=== PATIENT | female | born 1960 | race Caucasian/White ===

== ENCOUNTER → 2019-12-07 10:27 | Outpatient (BNVA) | payer OTHER, SELFPAY | PROVIDERS: PCP Internal Medicine; Visit Provider Physician Assistant | DX: E66.01 Morbid (severe) obesity due to excess calories (principal); Z68.41 Body mass index [BMI] 40.0-44.9, adult | CPT/HCPCS: 99204 ==

== ENCOUNTER 2020-06-10 12:19 | Outpatient (REF) | payer OTHER, SELFPAY ==
[2020-06-10 14:39] LABS: Alanine Aminotransferase 15 U/L (0-31); Albumin Level 4.1 g/dL (3.5-5.0); Alkaline Phosphatase 100 U/L (39-117); Anion Gap 15 (12-20); Aspartate Amino Transferase 16 U/L (5-31); Bilirubin Total 0.8 mg/dL (0.0-1.0); Blood Urea Nitrogen 21 mg/dL (9-16); Calcium 9.2 mg/dL (8.4-10.2); Carbon Dioxide 24 mmol/L (22-29); Chloride 107 mmol/L (96-108); Cholesterol 176 mg/dL; Estimated Glomerular Filt Rate > 60; Glucose Fasting 98 mg/dL (60-99); HDL Cholesterol 54 mg/dL; LDL Cholesterol Calculated 102 mg/dl; Potassium 4.7 mmol/L (3.3-5.1); Sodium 141 mmol/L (135-145); Total Protein 7.3 g/dL (6.5-8.0); Triglycerides 100 mg/dL
[2020-06-18 11:12] LABS: Vitamin D 25-OH, D2 <4 ng/mL; Vitamin D 25-OH, D3 32 ng/mL; Vitamin D 25-OH, Total 32 ng/mL (30-100)
== END 2020-06-10 12:20 | disposition home or self-care (01) ==
LOC: HO.HMGCLDS 12:19
PROVIDERS: PCP Internal Medicine; Visit Provider Internal Medicine
DX: Z00.01 Encounter for general adult medical examination with abnormal findings (principal); I10 Essential (primary) hypertension; K21.9 Gastro-esophageal reflux disease without esophagitis; E55.9 Vitamin D deficiency, unspecified; R03.0 Elevated blood-pressure reading, without diagnosis of hypertension
CPT/HCPCS: 36415; 80053; 80061; 82306

== ENCOUNTER 2021-01-27 11:23 | Outpatient (REF) | payer OTHER, SELFPAY ==
--- NOTE | ~2021-01-27 | XR_ITS ---
EXAMINATION: XR HIP, RIGHT CLINICAL INFORMATION: Pain in right hip. COMPARISON: None TECHNIQUE: Two views of the right hip. FINDINGS: There is loss of right hip joint space with periarticular spurring. No bony erosive changes seen. There is no visible acute fracture or dislocation. The soft tissues are normal. XR/XR hip RT min 2V IMPRESSION: Degenerative arthritic changes right hip joint. No visible acute fracture or dislocation seen.
[2021-01-27 14:06] LABS: Alanine Aminotransferase 17 U/L (0-31); Alkaline Phosphatase 89 U/L (39-117); Anion Gap 12 (12-20); Aspartate Amino Transferase 18 U/L (5-31); Bilirubin Total 0.4 mg/dL (0.0-1.0); Blood Urea Nitrogen 25 mg/dL (9-16); Calcium 9.5 mg/dL (8.4-10.2); Carbon Dioxide 26 mmol/L (22-29); Chloride 109 mmol/L (96-108); Cholesterol 178 mg/dL; Estimated Glomerular Filt Rate > 60; Glucose Fasting 99 mg/dL (60-99); HDL Cholesterol 49 mg/dL; LDL Cholesterol Calculated 100 mg/dl; Potassium 4.9 mmol/L (3.3-5.1); Sodium 142 mmol/L (135-145); Total Protein 7.2 g/dL (6.5-8.0); Triglycerides 145 mg/dL
[2021-01-27 14:28] LABS: TSH reflex Free T4 5.82 uIU/mL (0.32-4.0)
[2021-01-27 15:06] LABS: Free T4 (Free Thyroxine) 0.84 ng/dL (0.71-1.85)
[2021-01-31 13:20] LABS: Vitamin D 25-OH, D2 <4 ng/mL; Vitamin D 25-OH, D3 32 ng/mL; Vitamin D 25-OH, Total 32 ng/mL (30-100)
== END 2021-01-27 11:24 | disposition home or self-care (01) ==
LOC: HO.HMGCLDS 11:23
PROVIDERS: PCP Internal Medicine; Visit Provider Internal Medicine
DX: E55.9 Vitamin D deficiency, unspecified (principal); E66.01 Morbid (severe) obesity due to excess calories; I10 Essential (primary) hypertension; E78.9 Disorder of lipoprotein metabolism, unspecified; M25.551 Pain in right hip
CPT/HCPCS: 36415; 73502; 80053; 80061; 82306; 84439; 84443

== ENCOUNTER 2021-02-03 12:37 | Outpatient (REF) | payer OTHER, SELFPAY ==
[2021-02-03 15:06] LABS: TSH reflex Free T4 3.59 uIU/mL (0.32-4.0)
== END 2021-02-03 12:38 | disposition home or self-care (01) ==
LOC: HO.HMGCLDS 12:37
PROVIDERS: PCP Internal Medicine; Visit Provider Internal Medicine
DX: R79.89 Other specified abnormal findings of blood chemistry (principal)
CPT/HCPCS: 36415; 84443

== ENCOUNTER → 2021-03-28 14:37 | Outpatient (BNVA) | payer OTHER, SELFPAY | PROVIDERS: PCP Internal Medicine; Visit Provider Physician Assistant | DX: M16.11 Unilateral primary osteoarthritis, right hip (principal) | CPT/HCPCS: 99202 ==

== ENCOUNTER → 2021-05-08 13:10 | Outpatient (BNVA) | payer OTHER, SELFPAY | PROVIDERS: PCP Internal Medicine; Visit Provider Physician Assistant | DX: M16.11 Unilateral primary osteoarthritis, right hip (principal) | CPT/HCPCS: 99212 ==

== ENCOUNTER 2021-05-23 09:11 | Outpatient (REF) | payer OTHER, SELFPAY ==
[2021-05-23 11:43] LABS: MANUAL DIFF FLAG NO
[2021-05-23 12:00] LABS: Basophils Absolute Auto 0.1 X10*3/uL (0.0-0.2); Eosinophils Absolute Auto 0.3 X10*3/uL (0.0-0.4); Eosinophils Percent Auto 4.2 % (0-4); Hematocrit 41.6 % (37.0-47.0); Hemoglobin 13.2 g/dl (12.0-16.0); Imm Gran Abs Auto 0.04 X10*3/uL (0.00-0.03); Imm Gran Pct Auto 0.6 % (0.0-0.4); Lymphocytes Percent Auto 31.7 % (20-40); Mean Corpuscular HGB Conc 31.7 g/dl (31.0-35.0); Mean Corpuscular Hemoglobin 29.7 pg (27.0-33.0); Mean Corpuscular Volume 93.7 fL (80.0-98.0); Mean Platelet Volume 11.4 fL (9.4-12.3); Monocytes Absolute Auto 0.5 X10*3/uL (0.1-1.2); Monocytes Percent Auto 7.8 % (2-11); Neutrophils Absolute Auto 3.4 x10*3/uL (2.0-8.3); Neutrophils Percent Auto 54.7 % (45-73); Platelet Count 283 X10*3/uL (160-400); Red Blood Count 4.44 X10*6/uL (4.20-5.50); Red Cell Distribution Width 12.6 % (11.0-16.0); White Blood Count 6.2 X10*3/uL (4.8-10.8)
[2021-05-23 12:07] LABS: Alanine Aminotransferase 20 U/L (0-31); Albumin Level 4.2 g/dL (3.5-5.0); Alkaline Phosphatase 89 U/L (39-117); Anion Gap 13 (12-20); Aspartate Amino Transferase 18 U/L (5-31); Bilirubin Total 0.6 mg/dL (0.0-1.0); Blood Urea Nitrogen 23 mg/dL (9-16); Calcium 9.3 mg/dL (8.4-10.2); Carbon Dioxide 24 mmol/L (22-29); Chloride 110 mmol/L (96-108); Estimated Glomerular Filt Rate > 60; Glucose Random 105 mg/dL (60-115); Potassium 3.8 mmol/L (3.3-5.1); Sodium 143 mmol/L (135-145); Total Protein 7.4 g/dL (6.5-8.0)
== END 2021-05-23 09:12 | disposition home or self-care (01) ==
LOC: HO.HMGCLDS 09:11
PROVIDERS: PCP Internal Medicine; Visit Provider Internal Medicine
DX: Z00.01 Encounter for general adult medical examination with abnormal findings (principal); E78.9 Disorder of lipoprotein metabolism, unspecified; I10 Essential (primary) hypertension
CPT/HCPCS: 36415; 80053; 85025

== ENCOUNTER → 2021-06-06 11:22 | Outpatient (BNVA) | payer OTHER, SELFPAY | PROVIDERS: PCP Internal Medicine; Visit Provider Orthopaedic Surgery | DX: M17.12 Unilateral primary osteoarthritis, left knee (principal) | CPT/HCPCS: 99212 ==

== ENCOUNTER 2021-09-26 11:51 | Outpatient (REF) | payer OTHER, SELFPAY ==
[2021-09-26 13:52] LABS: MANUAL DIFF FLAG NO
[2021-09-26 14:08] LABS: Basophils Absolute Auto 0.1 X10*3/uL (0.0-0.2); Basophils Percent Auto 1.3 % (0-2); Eosinophils Absolute Auto 0.2 X10*3/uL (0.0-0.4); Eosinophils Percent Auto 3.8 % (0-4); Hematocrit 45.4 % (37.0-47.0); Hemoglobin 14.7 g/dl (12.0-16.0); Imm Gran Abs Auto 0.01 X10*3/uL (0.00-0.03); Imm Gran Pct Auto 0.2 % (0.0-0.4); Lymphocytes Absolute Auto 1.7 X10*3/uL (1.2-4.9); Mean Corpuscular HGB Conc 32.4 g/dl (31.0-35.0); Mean Corpuscular Hemoglobin 30.1 pg (27.0-33.0); Mean Corpuscular Volume 92.8 fL (80.0-98.0); Mean Platelet Volume 12.3 fL (9.4-12.3); Monocytes Absolute Auto 0.5 X10*3/uL (0.1-1.2); Monocytes Percent Auto 8.4 % (2-11); Neutrophils Absolute Auto 3.5 x10*3/uL (2.0-8.3); Neutrophils Percent Auto 58.3 % (45-73); Platelet Count 243 X10*3/uL (160-400); Red Blood Count 4.89 X10*6/uL (4.20-5.50); Red Cell Distribution Width 13.2 % (11.0-16.0)
[2021-09-26 14:22] LABS: Anion Gap 16 (12-20); Blood Urea Nitrogen 20 mg/dL (9-16); Calcium 9.4 mg/dL (8.4-10.2); Carbon Dioxide 26 mmol/L (22-29); Chloride 108 mmol/L (96-108); Estimated Glomerular Filt Rate > 60; Glucose Random 124 mg/dL (60-115); Potassium 4.9 mmol/L (3.3-5.1); Sodium 145 mmol/L (135-145)
== END 2021-09-26 11:52 | disposition home or self-care (01) ==
LOC: HO.HMGCLDS 11:51
PROVIDERS: PCP Internal Medicine; Visit Provider Orthopaedic Surgery
DX: Z01.812 Encounter for preprocedural laboratory examination (principal)
CPT/HCPCS: 36415; 80048; 85025

== ENCOUNTER 2021-10-09 09:06 | Outpatient (REF) | payer OTHER, SELFPAY ==
--- NOTE | ~2021-10-09 | XR_ITS ---
EXAMINATION: XR KNEES, STANDING AP XR KNEE, LEFT CLINICAL INFORMATION: Knee pain. COMPARISON: Standing AP knees and right knee 01/30/2019 TECHNIQUE: Standing AP view of both knees is performed. Lateral and axial patella views of the left knee are also performed. FINDINGS: Right: Prior right knee arthroplasty with hinged prosthesis. Hardware intact. No fracture, dislocation, destructive process, or osteolysis. Again, some benign scattered heterotopic ossification is present in the soft tissues adjacent to the proximal fibula. Left: Tricompartment osteoarthritis, greatest lateral compartment with subchondral sclerosis, joint narrowing, osteophytes femoral condyles and tibial plateau, and secondary genu valgus. No visible chondrocalcinosis or erosive change. No definite suprapatellar effusion. No lateralization or tilting patella. XR/XR knee LT 2V IMPRESSION: Right: -Status post knee arthroplasty. Hardware intact. No osteolysis. Left: -Tricompartment osteoarthritis, greatest lateral compartment with secondary genu valgus.
--- NOTE | ~2021-10-09 | XR_ITS ---
EXAMINATION: XR KNEES, STANDING AP XR KNEE, LEFT CLINICAL INFORMATION: Knee pain. COMPARISON: Standing AP knees and right knee 01/30/2019 TECHNIQUE: Standing AP view of both knees is performed. Lateral and axial patella views of the left knee are also performed. FINDINGS: Right: Prior right knee arthroplasty with hinged prosthesis. Hardware intact. No fracture, dislocation, destructive process, or osteolysis. Again, some benign scattered heterotopic ossification is present in the soft tissues adjacent to the proximal fibula. Left: Tricompartment osteoarthritis, greatest lateral compartment with subchondral sclerosis, joint narrowing, osteophytes femoral condyles and tibial plateau, and secondary genu valgus. No visible chondrocalcinosis or erosive change. No definite suprapatellar effusion. No lateralization or tilting patella. XR/XR knee standing BI IMPRESSION: Right: -Status post knee arthroplasty. Hardware intact. No osteolysis. Left: -Tricompartment osteoarthritis, greatest lateral compartment with secondary genu valgus.
== END 2021-10-09 09:07 | disposition home or self-care (01) ==
LOC: HO.HOSX 09:06
PROVIDERS: Visit Provider Physician Assistant
DX: M17.12 Unilateral primary osteoarthritis, left knee (principal)
CPT/HCPCS: 73560; 73565; 99212

== ENCOUNTER 2021-10-15 10:40 | Inpatient (IN) | payer OTHER, SELFPAY ==
[2021-09-30 13:08] VITALS: BMI 41.1
[2021-10-01 12:10] VITALS: BP 157/86; PULSE 69; RESP 16; O2SAT 96
--- NOTE | 2021-10-01 12:20 | HO.ANESPROP2 ---
Documented by User: Antoinette Samaniego NP 10/14/21 08:26 HPI - Anesthesia Eval Consult details Narrative: 60yo F for Left Knee Replacement Total 10/15/21 PCP cleared s/p R TKA 2018 - no issues per patient PMFSH Active Problems Active Problems: All Active Problems (Updated 09/30/21 @ 13:12 by Teresa Hernandez RN) Hypertension, essential (Acute) Vitamin D deficiency (Acute) Encounter for general adult medical examination with abnormal findings (Acute) Elevated blood pressure, situational (Acute) Vitamin D deficiency (Acute) Lipid disorder (Acute) Hip pain, right (Acute) Elevated TSH (Acute) Osteoarthritis of right hip (Acute) Osteoarthritis of left knee (Acute) Knee pain, left (Acute) Pre-op evaluation (Acute) Arthritis (Acute) Glaucoma (Acute) Morbid obesity (Acute) Past Medical History Medical History Arthritis Glaucoma History of cardiac murmur as a child History of seizure Hyperlipidemia Hypertension Lumbar disc herniation Morbid obesity Family History Family History Father Dementia Cancer Mother Ovarian cancer Brother No problems noted. Brother No problems noted. Family history of problems with anesthesia: No Surgical History Surgical History H/O brain surgery History of ankle surgery Hx of colonoscopy Hx of hysterectomy Total knee replacement status History of Problems with Anesthesia: No Social History Social History Housing: Apartment Do you presently have visiting nurse or other home services: No Alcohol intake: current Alcohol intake frequency: holidays/special occasions only Patient Tobacco Use Status: Never used Tobacco e-Cigarette/Vaping Use: Never Used Use of substances other than those prescribed or required for medical reasons: No Have you been hit, kicked, punched, or otherwise hurt by someone within the past year? If so, by whom?: No Are you DNR?: No Advance Directives: No Advance Directives Information Provided: Yes Advance Directives on File: No Recently lost weight without trying: No Nutrition Risks: No Nutritional Risk Patient : No Current occupational status: disabled Current occupation: Rt handed Cognitive needs: No Hearing needs: No Vision needs: No Narrative Narrative: No recent illness No CP/SOB wihtin limits of pain Meds Allergies Allergy/AdvReac Type Severity Reaction Status Date / Time No Known Allergies Allergy Verified 09/30/21 13:01 [No Known Allergies*] Home Medications Medication Instructions Recorded Confirmed Last Taken Type latanoprost 0.005 % eye drops 1 drp ophthalmic-Left BEDTIME 12/07/19 09/30/21 10/14/21 History Exam Exam Date and Time: October 01, 2021 1220 Height,Weight and Vital Signs: Height 5 ft 4 in Weight 108.862 kg Pertinent Lab Results Pertinent Lab Results: Laboratory Tests 09/26/21 09/26/21 12:10 12:10 WBC 6.0 Hgb 14.7 Hct 45.4 Plt Count 243 Sodium 145 Potassium 4.9 D Chloride 108 Carbon Dioxide 26 BUN 20 H Creatinine 0.95 Narrative Narrative: EKG 09/2021 NSR @ [address] and T wave abnormality Airway Mallampati Class: I TM Dist: >3cm Neck ROM: Full Loose/Missing/Broken Teeth: No Heart: RRR Lungs: CTAB Assessment and Plan Assessment Anesthesia Assessment: Anesthesia Plan Discussed and PAT Visit Final Anesthetic Review Family History of Problems with Anesthesia: No History of Problems with Anesthesia: No Documented by User: Ward James MD 10/15/21 14:51 [facility] Past Medical History Medical History Arthritis Glaucoma History of cardiac murmur as a child History of seizure Hyperlipidemia Hypertension Lumbar disc herniation Morbid obesity Functional capacity: uses cane/walker Family History Family History Father Dementia Cancer Mother Ovarian cancer Brother No problems noted. Brother No problems noted. Surgical History Surgical History H/O brain surgery History of ankle surgery Hx of colonoscopy Hx of hysterectomy Total knee replacement status Social History Social History Housing: Apartment Do you presently have visiting nurse or other home services: No Alcohol intake: current Alcohol intake frequency: holidays/special occasions only Patient Tobacco Use Status: Never used Tobacco e-Cigarette/Vaping Use: Never Used Use of substances other than those prescribed or required for medical reasons: No Have you been hit, kicked, punched, or otherwise hurt by someone within the past year? If so, by whom?: No Are you DNR?: No Advance Directives: No Advance Directives Information Provided: Yes Advance Directives on File: No Recently lost weight without trying: No Nutrition Risks: No Nutritional Risk Patient : No Current occupational status: disabled Current occupation: Rt handed Cognitive needs: No Hearing needs: No Vision needs: No Meds Allergies Allergy/AdvReac Type Severity Reaction Status Date / Time No Known Allergies Allergy Verified 09/30/21 13:01 [No Known Allergies*] Home Medications Medication Instructions Recorded Confirmed Last Taken Type latanoprost 0.005 % eye drops 1 drp ophthalmic-Left BEDTIME 12/07/19 09/30/21 10/14/21 History Exam Airway Mallampati Class: II Loose/Missing/Broken Teeth: Yes Assessment and Plan Assessment Anesthesia Assessment: Chart Reviewed Final Anesthetic Review NPO: Yes ASA Class: III Final Preanesthetic Review: Meds/Allgs Chart Reviewed, Consent Obtained/Reviewed and Anes Risks/Benef Reviewed Patient Risk: Intermediate Procedure Risk: Intermediate Anesthetic Plan Anesthetic Plan: Spinal and Regional Block Disposition: Inp. Admit - Standard Bed
[2021-10-01 14:50] LABS: MRSA Nasal PCR NEGATIVE (Negative); SA Nasal PCR POSITIVE (Negative)
[2021-10-15] VITALS (14 sets, daily range): BP systolic 97–142; BP diastolic 53–87; PULSE 65–88; RESP 16–20; TEMP 35.9–36.6; O2SAT 94–98; BMI 40.8
--- NOTE | ~2021-10-15 | XR_ITS ---
EXAMINATION: XR KNEE, LEFT CLINICAL INFORMATION: Pain. Status post left TKA COMPARISON: 10/09/2021 TECHNIQUE: Four views of the left knee. FINDINGS: Surgery has been performed. The prosthesis intact. No full alignment abnormalities. Skin sutures present. Fluid and air density is seen, surrounding the patella consistent with postsurgical change. XR/XR knee LT 2V IMPRESSION: Appropriate alignment of the left total knee arthroplasty.
[2021-10-15] MEDS: Lactated Ringers 1,000 ML 100 ML IVCONT ×2 (11:21→17:15)
[2021-10-15 11:33] LABS: COVID-19 Test Negative (Negative)
--- NOTE | 2021-10-15 11:45 | PHA.MEDREC ---
Pharmacy Consult ? Medication Reconciliation Pharmacy has completed the medication reconciliation.
--- NOTE | 2021-10-15 12:10 | MHC.SHP ---
Pre-Procedural Eval Section A Date of Service: 10/15/21 The patient is an INPATIENT: No Changes since office visit: Yes Patient answered all questions; No Cold of Flu in the past 2 weeks, No New Medical Problems and No Changes in Medication The History & Physical has been completed within 30 days and I have reviewed it.: Yes Section B Chief Complaint: LT TKA Allergies: Allergies Allergy/AdvReac Type Severity Reaction Status Date / Time No Known Allergies Allergy Verified 09/30/21 13:01 [No Known Allergies*] Plan I have reviewed the history and physical and performed a pertinent physical examination on my patient. No changes have occurred unless specified.
--- NOTE | 2021-10-15 14:18 | P.BOP_ITS ---
Brief Operative Note Date of Service: 10/15/21 Pre-op diagnosis: left knee OA Post-op diagnosis: same Procedure: Left TKA Implants: [place] Triathalon posterior stabilized cemented 05/21/15 Surgeon: Jose Brownlee MD Anesthesia: regional and spinal Was an Outside Parts Salesman used for this Procedure?: Yes Outside Parts Salesman: Gabby Rouse Estimated blood loss (mL): 250 IV fluids (mL): 1,000 Pathology: other Condition: stable Disposition: PACU
--- NOTE | 2021-10-15 14:21 | W.PM.OPN ---
Operative Note Operative Note Date of Service: 10/15/21 Narrative: Date of Service: 10/15/21 Pre-op diagnosis: left knee OA Post-op diagnosis: same Procedure: Left TKA Implants: [place] Triathalon posterior stabilized cemented 05/20/16TS/32a Surgeon: Jose Brownlee MD Anesthesia: regional and spinal Was an Humanities And Languages Professor used for this Procedure?: Yes Humanities And Languages Professor: Gabby Rouse Estimated blood loss (mL): 250 IV fluids (mL): 1,000 Pathology: other Condition: stable Disposition: PACU Procedure in detail: The patient was brought to the operating room and prepped and draped in standard sterile fashion. A time-out was called to identify proper site proper procedure proper surgeon and IV antibiotics were administered. 1 g of IV tranexamic acid was administered. I began by making a midline incision to the retinaculum and performed a medial parapatellar arthrotomy. The patella was translated laterally and the knee was flexed up. She had a valgus knee with severe lateral tibial bone loss and tricompartmental eburnation. I performed a small medial peel and resected the infrapatellar fat pad. [place]'s line was then used to drill my intramedullary femoral guide and my distal femur cut of 10 mm was made in 5 degrees of valgus while protecting the soft tissues. I then measured a # 4 femur and placed my cutting guide and made my anterior posterior and chamfer cuts protecting the soft tissues at all times. I then made my box but removing the PCL. Once I was satisfied with my cuts I turned my attention to the tibia. I removed the meniscus medially and laterally and , using an external cutting guide, in line with the tibial crest and the third ray, I made my distal tibial cut in 0 deg slope of while protecting the posterior soft tissues at all times. An extension block was used to confirm appropriate amount of bony resection. I then sized a #5 tibia and once I was satisfied that there was complete tibial coverage I placed my trial and with the trial femur in place took the knee through range of motion. I was satisfied with the extension and flexion as well as the stability at 0, 30 and 90 degrees. I then turned my attention to the patella where I removed 1 cm from the undersurface of the patella and then trialed a 32a patellar button. Again the knee was taken through range of motion I was satisfied with the tracking. I then prepared the tibia. A femoral bone plug was placed and the knee was irrigated copiously. I then cemented in the patella, tibia and femur in standard fashion. Once the cement was dry all excess cement was removed and I trialed different inserts until I selected a #[id number] insert. The final insert was placed and a 3 minutes iodine soak with local TXA was performed. A Werewolf cautery wand was used to maintain hemostasis over the capsule and meniscal beds, the gutters and peripatellar soft tissues. The knee was then closed with a running Quill suture, a 3 0 Vicryl and attila on the skin. Patient was then placed in sterile dressing and brought to recovery room in stable condition there were no known complications.
[2021-10-15] MEDS: HYDROmorphone HCl 0.5 MG/0.5 ML SYRINGE 0.25 MG IVPUSH (15:50)
[2021-10-15] MEDS: 0.9 % Sodium Chloride Flush 3 ML SYRINGE IVFLUSH ×2 (17:19→20:12)
--- NOTE | 2021-10-15 17:43 | P.CONHOSP_ITS ---
History of Present Illness Data of Consult Service Date: 10/15/21 Requesting physician: Gabby Rouse Primary Care Provider: MD AUDIE Perkins Reason for consult: routine medical management 60 year old patient with history of hypertension, vitamin d deficiency, hdl, subclinical hypothyroidism, osteoarthritis right hip, and glaucoma who is s/p left TKR performed this morning. She feels well overall. Reports 5/10 throbbing pain in the posterior left knee. No fevers, chills, sob, chest pain. Review of Systems Review of Systems: General: No fevers, malaise, unintentional weight loss Cardiovascular: No chest pain, palpitations, or leg edema Respiratory: No shortness of breath, wheezing, cough GI: No abdominal pain, nausea, vomiting, diarrhea, constipation, melena, hematochezia MSK: +left knee pain, +right hip pain Neuro: No headaches, weakness, paresthesias Skin: No rashes or lesions PMFSH Medical History Arthritis Glaucoma History of cardiac murmur as a child History of seizure Hyperlipidemia Hypertension Lumbar disc herniation Morbid obesity Functional capacity: uses cane/walker Family History Father Dementia Cancer Mother Ovarian cancer Brother No problems noted. Brother No problems noted. Surgical History H/O brain surgery History of ankle surgery Hx of colonoscopy Hx of hysterectomy Total knee replacement status Social History Household Members: None Housing: Apartment Do you presently have visiting nurse or other home services: No Alcohol intake: current Alcohol intake frequency: holidays/special occasions only Patient Tobacco Use Status: Never used Tobacco e-Cigarette/Vaping Use: Never Used Use of substances other than those prescribed or required for medical reasons: No Have you been hit, kicked, punched, or otherwise hurt by someone within the past year? If so, by whom?: No Do you feel safe in your current relationship?: No Current Relationship Is there a partner from a previous relationship who is making you feel unsafe now?: No Are you made to feel afraid or neglected: No Are you DNR?: No Advance Directives: No Advance Directives Information Provided: Yes Advance Directives on File: No Do you have thoughts of harming others: None Do you have a plan to hurt others: No Plan Recently lost weight without trying: No How much weight loss: Not applicable Eating poorly because of decreased appetite: No Nutrition screen score: 0 Nutrition Risks: No Nutritional Risk Patient : No : No Poor oral hygiene: No Current occupational status: disabled Current occupation: Rt handed Cognitive needs: No Hearing needs: No Vision needs: No Meds Allergies Allergy/AdvReac Type Severity Reaction Status Date / Time No Known Allergies Allergy Verified 09/30/21 13:01 [No Known Allergies*] Active Medications: Current Medications Acetaminophen (Acetaminophen 325 Mg Tablet) 650 mg PO Q6H PRN PRN Reason: Pain, Mild (Pain Scale 1-3) Atorvastatin Calcium (Atorvastatin Calcium 10 Mg Tablet) 10 mg PO BEDTIME [facility] Celecoxib (Celecoxib 200 Mg Capsule) 200 mg PO BID [facility] Docusate Sodium (Docusate Sodium 100 Mg Capsule) 100 mg PO BID [facility] Hydromorphone HCl (Hydromorphone Hcl 0.5 Mg/0.5 Ml Syringe) 0.25 mg IVPUSH Q4H PRN; Protocol PRN Reason: Pain, Severe (Pain Scale 7-10) Last Admin: 10/15/21 15:50 Dose: 0.25 mg Lactated Ringer's (Lr) 1,000 mls @ 100 mls/hr IVCONT .Q10H RASHID Last Admin: 10/15/21 17:15 Dose: 100 mls/hr Cefazolin Sodium/Dextrose (Ancef) 2 gm in 50 mls @ 100 mls/hr IV POSTOP ONE Stop: 10/15/21 18:59 Latanoprost (Latanoprost 0.005 % Ophth Jo 2.5 Ml Drops) 1 drop EYE-LEFT BEDTIME [facility] Lisinopril (Lisinopril 10 Mg Tablet) 10 mg PO DAILY [facility]; Protocol Ondansetron HCl (Ondansetron Hcl 4 Mg/2 Ml Vial) 4 mg IVPUSH Q8H PRN PRN Reason: Nausea and Vomiting Oxycodone HCl (Oxycodone Hcl Immed Release 5 Mg Tablet) 5 mg PO Q4H PRN PRN Reason: Pain, Moderate (Pain Scale 4-6 Oxycodone HCl (Oxycodone Hcl Er 10 Mg Tab.Er.12h) 10 mg PO BID [facility] Sodium Chloride (0.9 % Sodium Chloride Flush 3 Ml Syringe) 3 ml IVFLUSH QSHIFT [facility] Last Admin: 10/15/21 17:19 Dose: 3 ml Vitamin D (Cholecalciferol (Vitamin D3) 25 Mcg Tablet) 25 mcg PO DAILY [facility] Home Medications Medication Instructions Recorded Confirmed Last Taken Type latanoprost 0.005 % eye drops 1 drp ophthalmic-Left BEDTIME 12/07/19 09/30/21 10/14/21 History Physical Exam Vital Signs and Narrative: Vital Signs: Last Vital Signs Temp 96.9 F 10/15/21 17:09 Pulse 71 10/15/21 17:09 Resp 16 10/15/21 17:09 BP 134/63 10/15/21 17:09 Pulse Ox 98 10/15/21 17:09 O2 Del Method 10/15/21 17:09 O2 Flow Rate 6 10/15/21 15:33 BMI result Body Mass Index 40.8 Constitutional - Awake and Alert, No apparent distress Eyes - PERRLA, EOMI Cardiovascular - S1S2, RRR, No edema Respiratory - Normal lung expansion, Normal respiratory effort, No respiratory distress, CTA bilaterally Gastrointestinal - NT / ND; +BS; No rebound or guarding Extremities - no calf tenderness bilaterally Musculoskeletal - s/p left TKR in post-operative dressing with soft tissue swelling. Skin - Warm/Dry Neurological - Alert & oriented x3 Psychological - Appropriate affect. Results Labs Labs: Laboratory Results - last 24 hr 10/15/21 10:40 COVID-19 (MARY) Negative COVID-19 Clin Com See Note Imaging Radiologist's Impressions: Impressions Knee X-Ray 10/15/21 15:48 IMPRESSION: Appropriate alignment of the left total knee arthroplasty. Assessment and Plan (1) Osteoarthritis of left knee: Status: Acute (2) Status post total knee replacement, left: Status: Acute Plan 60 year old patient with history of hypertension, vitamin d deficiency, hdl, subclinical hypothyroidism, osteoarthritis right hip, and glaucoma who is s/p left TKR performed this morning consulted on for routine medical management. 1- Osteoarthritis left knee s/p TKR -Continue plan per ortho surgery team 2- htn- controlled -Continue lisinopril 10mg daily 3-hld -continue atorvastatin 10mg 4-Glaucoma- stable -Continue lataoprost drops 5-Vitamin D deficiency -Continue 25mg vit d daily DVT prophylaxis- defer to ortho surgery team Inpatient justification- defer to ortho surgery team Thank you for allowing me to consult on this patient. We will continue following for medical management.
[2021-10-15] MEDS: ceFAZolin Sodium/Dextrose,Iso 2 GM/50 ML PIGGYBACK IV (18:09)
[2021-10-15] MEDS: Atorvastatin Calcium 10 MG TABLET PO (20:11)
[2021-10-15] MEDS: Docusate Sodium 100 MG CAPSULE PO (20:11)
[2021-10-15] MEDS: oxyCODONE HCl ER 10 MG TAB.ER.12H PO (20:11)
[2021-10-15] MEDS: Celecoxib 200 MG CAPSULE PO (20:12)
[2021-10-15] MEDS: oxyCODONE HCl Immed Release 5 MG TABLET PO (23:20)
[2021-10-15] MEDS: Latanoprost 0.005 % Ophth Sol 2.5 ML DROPS 1 DROP EYE-LEFT (23:22)
[2021-10-16] VITALS (8 sets, daily range): BP systolic 117–128; BP diastolic 66–75; PULSE 76–90; RESP 16–18; TEMP 36.1–37.3; O2SAT 93–96
[2021-10-16] MEDS: Lactated Ringers 1,000 ML 100 ML IVCONT ×2 (05:39→23:23)
[2021-10-16 06:47] LABS: MANUAL DIFF FLAG NO
[2021-10-16 06:58] LABS: Basophils Absolute Auto 0.1 X10*3/uL (0.0-0.2); Basophils Percent Auto 0.7 % (0-2); Eosinophils Absolute Auto 0.1 X10*3/uL (0.0-0.4); Eosinophils Percent Auto 0.7 % (0-4); Hematocrit 36.8 % (37.0-47.0); Hemoglobin 12.2 g/dl (12.0-16.0); Imm Gran Abs Auto 0.03 X10*3/uL (0.00-0.03); Imm Gran Pct Auto 0.3 % (0.0-0.4); Lymphocytes Absolute Auto 1.1 X10*3/uL (1.2-4.9); Lymphocytes Percent Auto 12.5 % (20-40); Mean Corpuscular HGB Conc 33.2 g/dl (31.0-35.0); Mean Corpuscular Hemoglobin 30.8 pg (27.0-33.0); Mean Corpuscular Volume 92.9 fL (80.0-98.0); Mean Platelet Volume 10.9 fL (9.4-12.3); Monocytes Absolute Auto 1.1 X10*3/uL (0.1-1.2); Neutrophils Absolute Auto 6.7 x10*3/uL (2.0-8.3); Neutrophils Percent Auto 73.8 % (45-73); Platelet Count 212 X10*3/uL (160-400); Red Blood Count 3.96 X10*6/uL (4.20-5.50)
[2021-10-16 07:09] LABS: Anion Gap 14 (12-20); Blood Urea Nitrogen 19 mg/dL (9-16); Calcium 8.2 mg/dL (8.4-10.2); Carbon Dioxide 21 mmol/L (22-29); Chloride 108 mmol/L (96-108); Creatinine Clr Calc Pharmacy 95.6; Estimated Glomerular Filt Rate > 60; Glucose Fasting 127 mg/dL (60-99); Potassium 4.1 mmol/L (3.3-5.1); Sodium 139 mmol/L (135-145)
[2021-10-16] MEDS: Docusate Sodium 100 MG CAPSULE PO ×2 (08:36→20:03)
[2021-10-16] MEDS: Celecoxib 200 MG CAPSULE PO ×2 (08:36→20:03)
[2021-10-16] MEDS: oxyCODONE HCl ER 10 MG TAB.ER.12H PO ×2 (08:36→20:03)
[2021-10-16] MEDS: Cholecalciferol (Vitamin D3) 25 MCG TABLET PO (08:36)
[2021-10-16] MEDS: 0.9 % Sodium Chloride Flush 3 ML SYRINGE IVFLUSH ×2 (08:37→20:03)
[2021-10-16] MEDS: lisinopriL 10 MG TABLET PO (08:37)
--- NOTE | 2021-10-16 12:27 | PM.PNORT ---
Subjective Subjective Date of Service: 10/16/21 Interval history: POD1 s/p LTKA. No overnight events. Pain is well managed. No additional compalints. Denies CP,SOB, Abd pain. Patient is being assisted out of bed to commode. Physical Exam Vital Signs: Vital Signs: Last Vital Signs Temp 98.9 F 10/16/21 11:31 Pulse 76 10/16/21 11:31 Resp 18 10/16/21 11:31 BP 127/73 10/16/21 11:31 Pulse Ox 96 10/16/21 11:31 O2 Del Method 10/16/21 11:31 O2 Flow Rate 6 10/15/21 15:33 BMI result Body Mass Index 40.8 Const: General: cooperative, healthy appearing and no acute distress Resp: Effort & Inspection: normal respiratory effort and able to speak in complete sentences Cardio: Rate: regular rate Peripheral pulses: Peripheral pulses 2+ throughout GI: Palpation (GI): Soft to palpation Skin: Lesions: no lesions Rashes: no rashes Extrem: Other: Left knee Aquacel is C/D/I. NVI. Procedures Date of Service Date of Service: 10/16/21 Progress Note: A&P Assessment and plan (1) Status post total knee replacement, left: Status: Acute Assessment and Plan: Continue pain mgmnt Begin Lovenox for dvt ppx, hx cancer, obesity begin PT for LTKA Dispo planning-Pending PT eval, pain mgmnt Time Spent With Patient Time: Total time spent is greater than 50% in coordination of care (as documented) at patient's floor/unit and/or counseling patient: Quality Stroke Does the patient have a stroke diagnosis?: No VTE Prior VTE?: No VTE Risk Level:: Medical - moderate - high VTE Device Contraindication: N/A - Device Ordered VTE Drug Contraindication: N/A - Med Ordered
[2021-10-16] MEDS: Enoxaparin Sodium 40 MG/0.4 ML SYRINGE SUBCUT (12:39)
--- NOTE | 2021-10-16 16:30 | MHC.CM.PN ---
PATIENT LIVES ALONE. SHE HAS A CANE AND WALKER IN PREP FOR THIS SURGERY. NO [facility] OR FIELD CREW CHIEF SERVICES. SHE DOES HAVE SOMEONE STAYING WITH HER ONCE SHE DC REFERRAL TO [facility] PER REQUEST PATIENT PLANS TO DC HOME TOMORROW (10/17/21) SHE IS COVID VACCINATED X 3. IMM 10/16 IN CHART PATIENT IS AGREEABLE TO ASSIGNING HER BROTHER AND S.I.L. HCP AGENTS IF COVERING CASE MANAGEMENT CAN ASSIST
[2021-10-16] MEDS: Atorvastatin Calcium 10 MG TABLET PO (20:03)
[2021-10-16] MEDS: Latanoprost 0.005 % Ophth Sol 2.5 ML DROPS 1 DROP EYE-LEFT (20:03)
[2021-10-17 03:46] VITALS: BP 121/66; PULSE 80; RESP 17; TEMP 36; O2SAT 93
[2021-10-17 06:09] LABS: MANUAL DIFF FLAG NO
[2021-10-17 06:12] LABS: Basophils Absolute Auto 0.1 X10*3/uL (0.0-0.2); Basophils Percent Auto 0.8 % (0-2); Eosinophils Absolute Auto 0.3 X10*3/uL (0.0-0.4); Eosinophils Percent Auto 2.9 % (0-4); Hematocrit 31.8 % (37.0-47.0); Hemoglobin 10.6 g/dl (12.0-16.0); Imm Gran Abs Auto 0.05 X10*3/uL (0.00-0.03); Imm Gran Pct Auto 0.6 % (0.0-0.4); Lymphocytes Absolute Auto 1.7 X10*3/uL (1.2-4.9); Lymphocytes Percent Auto 19.5 % (20-40); Mean Corpuscular HGB Conc 33.3 g/dl (31.0-35.0); Mean Corpuscular Hemoglobin 30.8 pg (27.0-33.0); Mean Corpuscular Volume 92.4 fL (80.0-98.0); Mean Platelet Volume 11.1 fL (9.4-12.3); Monocytes Absolute Auto 1.2 X10*3/uL (0.1-1.2); Monocytes Percent Auto 13.5 % (2-11); Neutrophils Absolute Auto 5.4 x10*3/uL (2.0-8.3); Neutrophils Percent Auto 62.7 % (45-73); Platelet Count 193 X10*3/uL (160-400); Red Blood Count 3.44 X10*6/uL (4.20-5.50); Red Cell Distribution Width 13.2 % (11.0-16.0); White Blood Count 8.7 X10*3/uL (4.8-10.8)
[2021-10-17 06:48] LABS: Anion Gap 14 (12-20); Blood Urea Nitrogen 11 mg/dL (9-16); Carbon Dioxide 22 mmol/L (22-29); Chloride 107 mmol/L (96-108); Creatinine Clr Calc Pharmacy 102.3; Estimated Glomerular Filt Rate > 60; Glucose Fasting 106 mg/dL (60-99); Potassium 3.7 mmol/L (3.3-5.1); Sodium 139 mmol/L (135-145)
--- NOTE | 2021-10-17 06:49 | HO.POSTANES ---
Post Anesthesia Evaluation Post Anesthesia Evaluation Vital Signs: Vital Signs Temp Pulse Resp BP Pulse Ox O2 Del Method 10/17/21 03:46 96.8 F 80 17 121/66 93 Room Air 10/16/21 23:31 97.2 F 80 16 122/68 95 Room Air 10/16/21 19:31 97.3 F 84 17 128/73 96 Room Air Anesthesia: Spinal and Nerve Block Mental Status: Awake Pain Control: Satisfactory Nausea/Vomiting: None Hydration: Adequate Anesthesia-Related Issues: No Anes. Related Issues
[2021-10-17 07:28] VITALS: BP 130/68; PULSE 87; RESP 18; TEMP 36.7; O2SAT 92
[2021-10-17] MEDS: Docusate Sodium 100 MG CAPSULE PO (08:05)
[2021-10-17] MEDS: oxyCODONE HCl ER 10 MG TAB.ER.12H PO (08:05)
[2021-10-17] MEDS: Cholecalciferol (Vitamin D3) 25 MCG TABLET PO (08:06)
[2021-10-17] MEDS: lisinopriL 10 MG TABLET PO (08:06)
[2021-10-17] MEDS: Celecoxib 200 MG CAPSULE PO (08:06)
--- NOTE | 2021-10-17 08:09 | P.DS_ITS ---
DS: Providers Provider Date of Service: 10/17/21 Date of admission: 10/15/21 10:40 Primary care physician: Luna Marino MD Consults: 10/15/21 17:08 Consult to Hospitalist Routine Consulting Provider: Hospitalist Reason For Exam: routine medical management DS: Diagnosis Discharge Diagnosis (1) Status post total knee replacement, left: Status: Acute DS: Summary Hospital Course Hospital Course: The patient underwent a successful left total knee arthroplasty, they were transferred to PACU and then to the floor to recover. During their stay, their vitals were stable, afebrile at 98.4. Labs were unremarkable, H/H 9.5/28.2. POD 1 they were started on Lovenox for DVT ppx, they also received Physical Therapy services twice a day. Prior to discharge, their dressing was changed, incision clean dry and intact, new Aquacel dressing applied and the plan was to be discharged home with VNA services. Time Spent with Patient Time attestation: Total time spent providing and/or coordinating discharge services: Discharge coordination time: Less than 30 minutes Quality: Safe Use of Opioids Does Pt have an Active Cancer Diagnosis on the Problem List?: No Quality: Stroke Does the patient have a stroke diagnosis?: No Physical Exam Vital Signs: Vital Signs: Last Vital Signs Temp 98.0 F 10/17/21 07:28 Pulse 87 10/17/21 07:28 Resp 18 10/17/21 07:28 BP 130/68 10/17/21 07:28 Pulse Ox 92 10/17/21 07:28 O2 Del Method 10/17/21 07:28 O2 Flow Rate 6 10/15/21 15:33 BMI result Body Mass Index 40.8 Const: General: cooperative, healthy appearing and no acute distress Resp: Effort & Inspection: normal respiratory effort and able to speak in complete sentences Cardio: Rate: regular rate Peripheral pulses: Peripheral pulses 2+ throughout GI: Palpation (GI): Soft to palpation Skin: Lesions: no lesions Rashes: no rashes Extrem: Other: Left knee Aquacel dressing changed. Incision site is c/d/i attila intact. Able to flex and extend. Calf is supple nontender. NVI. DS: Data Data Completed and Pending Pending studies at discharge: Pending at discharge 10/15/21 13:50 Surgical [PTH] Routine Labs on day of discharge: Laboratory Results - last 24 hr 10/17/21 10/17/21 05:26 05:26 WBC 8.7 RBC 3.44 L Hgb 10.6 L Hct 31.8 L MCV 92.4 MCH 30.8 MCHC 33.3 RDW 13.2 Plt Count 193 MPV 11.1 Immature Gran % (Auto) 0.6 H Neut % (Auto) 62.7 Lymph % (Auto) 19.5 L [place] % (Auto) 13.5 H Eos % (Auto) 2.9 Baso % (Auto) 0.8 Lymph # (Auto) 1.7 [place] # (Auto) 1.2 Eos # (Auto) 0.3 Baso # (Auto) 0.1 Abs Immat Gran (auto) 0.05 H Absolute Neuts (auto) 5.4 Absolute Nucleated RBC 0.000 Nucleated RBC % (auto) 0.0 Sodium 139 Potassium 3.7 Chloride 107 Carbon Dioxide 22 Anion Gap 14 BUN 11 Creatinine 0.71 Estim Creat Clear Calc 102.3 Estimated GFR > 60 Fasting Glucose 106 H Calcium 8.0 L Discharge Plan Discharge Patient Disposition: Home Health Service Discharge Diagnosis: s/p LTKA Referrals: Barbara Marin PA-C [Physician Re [facility]] - 10/30/21 2:00 pm Discharge Medications: New acetaminophen 325 mg Tablet 650 mg PO Q6H PRN (Reason: Pain, Mild (Pain Scale 1-3)) 42 Days Qty: 240 0RF enoxaparin 40 mg/0.4 mL Syringe 40 mg subcut Q24H 42 Days Qty: 16.8 0RF celecoxib 200 mg Capsule 200 mg PO BID 60 Days Qty: 120 0RF docusate sodium 100 mg Capsule 100 mg PO BID 30 Days Qty: 60 0RF oxycodone 5 mg Tablet 5 mg PO Q4H PRN (Reason: Pain, Moderate (Pain Scale 4-6) 7 Days Qty: 42 0RF Rx Instructions: Partial Fill upon patient request. Continued meloxicam 15 mg tablet 15 mg PO DAILY Qty: 30 0RF simvastatin 20 mg tablet 20 mg PO BEDTIME Qty: 90 0RF lisinopril 10 mg tablet 10 mg PO DAILY Qty: 90 0RF cholecalciferol (vitamin D3) [Vitamin D3] 25 mcg (1,000 unit) capsule 25 mcg PO DAILY Qty: 90 0RF latanoprost 0.005 % drops 1 drp ophthalmic-Left BEDTIME Discharge Orders: Discharge Order (Routine); Ordered 10/17/21 Ordered By: Gabby Rouse Diet: Regular diet Activity on Discharge: Use cane or walker Stand Alone Forms: Patient Portal Discharge page Care Plan Goals: restorn fxn to lt knee Health Concerns: none Plan of Treatment: Physical Therapy for ROM 0-120, quad strength, gait training. Use walker for ambulation Limit stair climbing, No shower, No tub bath, No driving Continue anticoagulant Keep Aquacel dressing clean, dry and intact. Follow up with orthopedics in 2 weeks Assessment: stable for d/c
[2021-10-17] MEDS: 0.9 % Sodium Chloride Flush 3 ML SYRINGE IVFLUSH (08:10)
--- NOTE | 2021-10-17 08:57 | MHC.CM.PN ---
HCP COMPLETED, ORIGINAL AND COPIES TO PATIENT, COPY TO CHART, COPY UPLOADED TO CAREPORT.
--- NOTE | 2021-10-17 08:57 | MHC.CM.PN ---
PATIENT IS MEDICALLY CLEARED FOR DISCHARGE TODAY; DISCHARGE DISPOSITION IS HOME WITH SERVICES. [facility] WILL PROVIDE SERVICE. PATIENT WILL ARRANGE TRANSPORTATION HOME. NO 2ND IMM REQUIRED.
--- NOTE | 2021-10-17 09:04 | P.F2F_ITS ---
Service Date Service Date: 10/17/21 Encounter Date of encounter: 10/17/21 Reasons for Services Signs and symptoms assessed: left knee pain and weakness , pain with ambulation. poor balance. Reason for correction: medication management and medication treatment Reason for physical therapy: home safety and mobility, therapeutic exercises, restore joint function, gait/transfer training, ADL training and energy conservation Reason for occupational therapy: home safety and mobility, therapeutic exercises, restore joint function, gait/transfer training, ADL training and energy conservation MD Overseeing Care: Jose Brownlee Homebound: Leaving the home is medically contraindicated at this time without the asist of a device and/or another person due th the listed conditions above and below. Reason homebound: unsteady gait / fall risk, pain with ambulation, poor balance / fall risk and unable to drive Homebound supporting statement: Pt. is considered home bound due to recent surgery. Unable to drive, poor balance, poor gait mechanics. Certification: Based on the above findings, I certify that this patient is confined to the home and needs intermittent correction care, physical therapy and/or speech therapy, or continues to need occupational therapy. The patient is under my care, and I have initiated the establishment of the plan of care. The patient will be followed by a physician who will periodically review the plan of care.
[2021-10-17 09:08] VITALS: BP 130/68; PULSE 87; O2SAT 92
--- NOTE | 2021-10-17 09:09 | W.MHC.F2F ---
Service Date Service Date: 10/17/21 Encounter Date of encounter: 10/17/21 Reasons for Services Signs and symptoms assessed: Pt. is considered homebound due to recent surgery. Unable to drive, poor balance, poor gait mechanics. Homebound: Leaving the home is medically contraindicated at this time without the asist of a device and/or another person due th the listed conditions above and below. Certification: Based on the above findings, I certify that this patient is confined to the home and needs intermittent correction care, physical therapy and/or speech therapy, or continues to need occupational therapy. The patient is under my care, and I have initiated the establishment of the plan of care. The patient will be followed by a physician who will periodically review the plan of care.
[2021-10-17] MEDS: Enoxaparin Sodium 40 MG/0.4 ML SYRINGE SUBCUT (11:04)
== END 2021-10-17 11:24 | disposition home health service (06) | DRG 470 ==
LOC: HO.SSSA 11:13 → HO.S3 14:28
PROVIDERS: Physician Assistant; Admitting Provider Orthopaedic Surgery; PCP Internal Medicine; Visit Provider Orthopaedic Surgery
PROC: 0SRD0J9 Replacement of Left Knee Joint with Synthetic Substitute, Cemented, Open Approach (ICD-10-PCS; CPT 27447; principal; 2021-10-15 12:10)
DX: M17.12 Unilateral primary osteoarthritis, left knee (principal); Z68.41 Body mass index [BMI] 40.0-44.9, adult; E78.5 Hyperlipidemia, unspecified; I10 Essential (primary) hypertension; E66.01 Morbid (severe) obesity due to excess calories; E55.9 Vitamin D deficiency, unspecified; H40.9 Unspecified glaucoma; Z20.822 Contact with and (suspected) exposure to COVID-19; Z79.899 Other long term (current) drug therapy
CPT/HCPCS: 36415; 73560; 80048; 85025; 86850; 86900; 86901; 87635; 87640; 87641; 88305; 88311; 97110; 97116; 97162; 97530; C1713; C1776; J0131; J0690; J1170; J1650; J2250; J2795

== ENCOUNTER 2021-12-01 11:00 | Outpatient (RCR) | payer OTHER, SELFPAY ==
--- NOTE | 2021-10-30 14:47 | MHC.PT.EP ---
[facility] [place] Office [place] Office [place] Office [address] Arslan Capps [address] [phone] F: [phone] F: [phone] F: [phone] F: [phone] Physical Therapy Plan of Care Date of Evaluation: Date of Surgery: 10/15/21 Diagnosis: S/P LEFT TKA Assessment: 60 YO FEMALE REF TO PT S/P Lt TKA ON 10/15/21-> SHE HAS A H/O PREVIOUS Rt TKA. SHE RESIDES ALONE IN A 2ND FLOOR APT W AN ELEVATOR AND IS CURRENTLY AMB W A W/WALKER . OBJECTIVE FINDINGS: LIMITED AROM Lt KNEE, TIGHT PSOAS MM IRMA AND DECR ANKLE DF IRMA; MECHANICAL INFLUENCE OF IRMA GENU VALGUS; DECR STRENGTH IN PROX / LUMBOPELVIC AND Lt LE, POST-OP PAIN IN LEFT KNEE ,AND HEALING ANT Lt KNEE INCISION. FUNCTIONALLY, Pt IS AMB W A W/WALKER- SHE HAS COMPENSATORY GAIT, MODIFIED STAIR MGMT, DECR STANDING, SLEEPING, AND DECR PALMER TO ADLs REQ Rt KNEE FLEX. Pt IS A VERY GOOD PT CANDIDATE TO GUIDE HER IN HER POST-OP TKR COURSE, ADDRESSING THE ABOVE FINDINGS, PAIN MGMT, AND MAXIMIZING FUNCTIONAL INDEPENDENCE. Frequency and Duration: The patient will be seen 2x WK x 10 WKS Short Term Goals: *Pt'S LEFT KNEE PAIN DECR TO 2-3/10 *Pt INCREASE Lt KNEE ROM -> 0* EXTEN AND PROGRESSIVELY TO 120* FLEX *INCR Pt AWARENESS AND ACTIVATION OF GLUTEAL MM *INCR FLEXIB IN PSOAS/ CALF MM TO IMPROVE EFFICIENCY OF GAIT ON LEVEL AND STAIRS *REDUCE Lt LE EDEMA AND MONITOR/ ADDRESS SCAR MOB NEEDED Care Home Goals: Pt INDEP W HEP PROGRESSION AND SELF-SX MGMT STRATEGIES IN 10 WKS Pt RESUME REG ADLs EVIDENT W IMPROVED LEFI SCORE BY 8-10 POINTS IN 10 WKS Pt INCR LE STRENGTH BY 1 GRADE IN 10 WKS Treatment Plan: Modalities to reduce pain, spasms and effusion. Manual therapy to restore motion and function. Therapeutic exercise to improve strength and flexibility. Neuromuscular re-education for posture and balance. Therapeutic activities to return to functional activities of daily living. Electronically signed by: DWAYNE BERRY PT Please sign and return to therapist. Thank you for your referral.
--- NOTE | 2021-12-01 11:52 | MHC.PT.DC ---
[facility] [place] Office [place] Office [place] Office [address] Arslan Capps [address] [facility] [phone] F: [phone] F: [phone] F: [phone] F: [phone] Physical Therapy Discharge Report Diagnosis: S/P LEFT TKA Date of Surgery: 10/15/21 Date of Evaluation: 10/30/21 Date of Discharge: 12/01/21 Treatments to Date: 8 Cancellations to Date: 3 No Shows to Date: 0 Discharge Status: Independent with HEP Patient Elected to Stop Discharge Summary: 12/01/2021: Pt requesting to be d/c from skilled PT as she feels like she is in a good place and would prefer to continue with PT at home. She has made good progress towards her goals at this point although does still lack functional strength and ROM. Additionally she still relies on her cane when ambulating and demonstrates moderate gait impairments. Discussed with pt that she would benefit from further PT but she still prefers to do this on her own with her HEP, therefore, pt to be d/c to HEP at this time. Electronically signed by: Shae Hummel, PT, DPT, ATC Please sign and return to therapist. Thank you for your referral.
== END 2021-12-01 11:52 | disposition home or self-care (01) ==
LOC: HO.PTCHIC 11:00
PROVIDERS: Visit Provider Physician Assistant
DX: Z96.652 Presence of left artificial knee joint (principal)
CPT/HCPCS: 97110; 97162

== ENCOUNTER 2022-01-12 12:59 | Outpatient (REF) | payer OTHER, SELFPAY ==
--- NOTE | ~2022-01-12 | XR_ITS ---
EXAMINATION: KNEE X-RAY CLINICAL INFORMATION: Pain. COMPARISON: Previous x-ray, most recent 09/2021. TECHNIQUE: Standing AP view of both knees and lateral and sunrise view of the left knee. FINDINGS: There is a left 3 component knee replacement in satisfactory position. No fracture, dislocation or x-ray evidence of loosening is seen. There is a small knee joint effusion. Standing AP view of the right knee demonstrates a right knee replacement. There are soft tissue calcifications or ossifications in the right lower leg that appear stable. XR/XR knee LT 2V IMPRESSION: Satisfactory appearance of left knee replacement. Small joint effusion.
--- NOTE | ~2022-01-12 | XR_ITS ---
EXAMINATION: KNEE X-RAY CLINICAL INFORMATION: Pain. COMPARISON: Previous x-ray, most recent 09/2021. TECHNIQUE: Standing AP view of both knees and lateral and sunrise view of the left knee. FINDINGS: There is a left 3 component knee replacement in satisfactory position. No fracture, dislocation or x-ray evidence of loosening is seen. There is a small knee joint effusion. Standing AP view of the right knee demonstrates a right knee replacement. There are soft tissue calcifications or ossifications in the right lower leg that appear stable. XR/XR knee standing BI IMPRESSION: Satisfactory appearance of left knee replacement. Small joint effusion.
== END 2022-01-12 13:00 | disposition home or self-care (01) ==
LOC: HO.HOSX 12:59
PROVIDERS: Visit Provider Orthopaedic Surgery
DX: M25.562 Pain in left knee (principal); M25.561 Pain in right knee
CPT/HCPCS: 73560; 73565

== ENCOUNTER 2022-01-28 14:22 | Outpatient (REF) | payer OTHER, SELFPAY ==
[2022-01-28 16:32] LABS: MANUAL DIFF FLAG NO
[2022-01-28 16:36] LABS: Basophils Absolute Auto 0.1 X10*3/uL (0.0-0.2); Basophils Percent Auto 1.3 % (0-2); Eosinophils Absolute Auto 0.1 X10*3/uL (0.0-0.4); Eosinophils Percent Auto 2.7 % (0-4); Hematocrit 42.4 % (37.0-47.0); Hemoglobin 13.8 g/dl (12.0-16.0); Imm Gran Abs Auto 0.01 X10*3/uL (0.00-0.03); Imm Gran Pct Auto 0.2 % (0.0-0.4); Lymphocytes Absolute Auto 1.3 X10*3/uL (1.2-4.9); Mean Corpuscular HGB Conc 32.5 g/dl (31.0-35.0); Mean Corpuscular Hemoglobin 29.7 pg (27.0-33.0); Mean Corpuscular Volume 91.4 fL (80.0-98.0); Mean Platelet Volume 11.3 fL (9.4-12.3); Monocytes Absolute Auto 0.4 X10*3/uL (0.1-1.2); Monocytes Percent Auto 7.5 % (2-11); Neutrophils Absolute Auto 3.3 x10*3/uL (2.0-8.3); Neutrophils Percent Auto 63.3 % (45-73); Platelet Count 272 X10*3/uL (160-400); Red Blood Count 4.64 X10*6/uL (4.20-5.50); White Blood Count 5.2 X10*3/uL (4.8-10.8)
[2022-01-28 16:45] LABS: Estimated Average Glucose 105 mg/dL; Hemoglobin A1c % 5.3 %
[2022-01-28 17:20] LABS: Alanine Aminotransferase 15 U/L (0-31); Albumin Level 4.4 g/dL (3.5-5.0); Alkaline Phosphatase 91 U/L (39-117); Anion Gap 13 (12-20); Aspartate Amino Transferase 19 U/L (5-31); Bilirubin Total 0.6 mg/dL (0.0-1.0); Blood Urea Nitrogen 22 mg/dL (9-16); Calcium 9.9 mg/dL (8.4-10.2); Carbon Dioxide 27 mmol/L (22-29); Chloride 109 mmol/L (96-108); Estimated Glomerular Filt Rate > 60; Ferritin 67 ng/mL (10-250); Glucose Random 111 mg/dL (60-115); Potassium 4.2 mmol/L (3.3-5.1); Sodium 145 mmol/L (135-145); TSH reflex Free T4 2.53 uIU/mL (0.32-4.0); Total Protein 7.6 g/dL (6.5-8.0)
[2022-01-28 17:27] LABS: Vitamin B12 274 pg/mL (200-900)
[2022-02-04 16:14] LABS: LDL Cholesterol Direct 72 mg/dL (<100); Vitamin D 25-OH, D2 <4 ng/mL; Vitamin D 25-OH, D3 36 ng/mL; Vitamin D 25-OH, Total 36 ng/mL (30-100)
== END 2022-01-28 14:23 | disposition home or self-care (01) ==
LOC: HO.HMGCLDS 14:22
PROVIDERS: PCP Internal Medicine; Visit Provider Internal Medicine
DX: D64.9 Anemia, unspecified (principal); E55.9 Vitamin D deficiency, unspecified; R79.89 Other specified abnormal findings of blood chemistry; E78.9 Disorder of lipoprotein metabolism, unspecified; I10 Essential (primary) hypertension; R73.01 Impaired fasting glucose; E66.01 Morbid (severe) obesity due to excess calories
CPT/HCPCS: 36415; 80053; 82306; 82607; 82728; 83036; 83721; 84443; 85025

== ENCOUNTER 2022-05-27 14:14 | Outpatient (REF) | payer OTHER, SELFPAY ==
--- NOTE | ~2022-05-27 | XR_ITS ---
EXAMINATION: XR LUMBOSACRAL SPINE CLINICAL INFORMATION: Lumbar radiculopathy COMPARISON: None available. TECHNIQUE: Three views of the lumbosacral spine. FINDINGS: There is a 9 mm anterior subluxation of L5 with respect to S1. There may be an underlying L5 pars defect. This is not seen due to facet arthritis. Bone alignment is otherwise normal. No fracture or dislocation. There is multilevel degenerative disc disease. Lower lumbar spine facet arthritis. XR/XR lumbar spine 2-3V IMPRESSION: 9 mm anterior subluxation of L5 with respect to S1. Multilevel degenerative disc disease and facet arthritis. L5 pars defect not appreciated, probably due to severe facet arthritis.
== END 2022-05-27 14:15 | disposition home or self-care (01) ==
LOC: HO.HMGCX 14:14
PROVIDERS: PCP Internal Medicine; Visit Provider Internal Medicine
DX: M54.16 Radiculopathy, lumbar region (principal)
CPT/HCPCS: 72100

== ENCOUNTER → 2022-07-01 13:01 | Outpatient (BNVA) | payer OTHER, SELFPAY | PROVIDERS: PCP Internal Medicine; Visit Provider Registered Nurse Emergency | DX: M47.816 Spondylosis without myelopathy or radiculopathy, lumbar region (principal); M53.3 Sacrococcygeal disorders, not elsewhere classified; M16.11 Unilateral primary osteoarthritis, right hip | CPT/HCPCS: 99202; Q3014 ==

== ENCOUNTER 2022-08-04 06:06 | Outpatient (REF) | payer OTHER, SELFPAY ==
--- NOTE | ~2022-08-04 | FL_ITS ---
EXAMINATION: XR FLUOROSCOPY WITH IMAGES CLINICAL INFORMATION: Sacrococcygeal disorders, not elsewhere classified COMPARISON: None available. TECHNIQUE: Fluoroscopy Supervised By: Dr. Freeman. Fluoroscopy Time: 0.0. Cumulative Dose: 1.96 mGy. DAP: 0.536 Gycm2. Images: 1. FINDINGS: Single image demonstrates needle placement and contrast injection of the right sacroiliac joint. FL/FL guidance in treatment room IMPRESSION: Fluoroscopy guidance for right sacroiliac joint injection.
== END 2022-08-04 06:07 | disposition home or self-care (01) ==
LOC: CF 06:06
PROVIDERS: Visit Provider Anesthesiology
DX: M53.3 Sacrococcygeal disorders, not elsewhere classified (principal); M47.816 Spondylosis without myelopathy or radiculopathy, lumbar region; M16.11 Unilateral primary osteoarthritis, right hip
CPT/HCPCS: 27096

== ENCOUNTER → 2022-08-06 11:05 | Outpatient (BNVA) | payer OTHER, SELFPAY | PROVIDERS: PCP Internal Medicine; Visit Provider Registered Nurse Emergency | DX: M47.26 Other spondylosis with radiculopathy, lumbar region (principal); M53.3 Sacrococcygeal disorders, not elsewhere classified | CPT/HCPCS: 99212 ==

== ENCOUNTER 2022-08-25 11:24 | Outpatient (REF) | payer OTHER, SELFPAY ==
[2022-08-25 13:07] LABS: MANUAL DIFF FLAG NO
[2022-08-25 13:22] LABS: Basophils Absolute Auto 0.1 X10*3/uL (0.0-0.2); Basophils Percent Auto 1.2 % (0-2); Eosinophils Absolute Auto 0.2 X10*3/uL (0.0-0.4); Eosinophils Percent Auto 4.4 % (0-4); Hematocrit 40.2 % (37.0-47.0); Hemoglobin 13.1 g/dl (12.0-16.0); Imm Gran Abs Auto 0.01 X10*3/uL (0.00-0.03); Imm Gran Pct Auto 0.2 % (0.0-0.4); Lymphocytes Absolute Auto 1.6 X10*3/uL (1.2-4.9); Lymphocytes Percent Auto 30.6 % (20-40); Mean Corpuscular HGB Conc 32.6 g/dl (31.0-35.0); Mean Corpuscular Volume 95.3 fL (80.0-98.0); Mean Platelet Volume 11.2 fL (9.4-12.3); Monocytes Absolute Auto 0.4 X10*3/uL (0.1-1.2); Monocytes Percent Auto 7.7 % (2-11); Neutrophils Absolute Auto 2.9 x10*3/uL (2.0-8.3); Neutrophils Percent Auto 55.9 % (45-73); Platelet Count 245 X10*3/uL (160-400); Red Blood Count 4.22 X10*6/uL (4.20-5.50); Red Cell Distribution Width 12.3 % (11.0-16.0); White Blood Count 5.2 X10*3/uL (4.8-10.8)
[2022-08-25 13:57] LABS: Alanine Aminotransferase 18 U/L (0-31); Alkaline Phosphatase 83 U/L (39-117); Anion Gap 15 (12-20); Aspartate Amino Transferase 17 U/L (5-31); Bilirubin Total 0.9 mg/dL (0.0-1.0); Blood Urea Nitrogen 22 mg/dL (9-16); Calcium 9.5 mg/dL (8.4-10.2); Carbon Dioxide 23 mmol/L (22-29); Chloride 108 mmol/L (96-108); Cholesterol 149 mg/dL; Estimated Glomerular Filt Rate > 60; Glucose Fasting 93 mg/dL (60-99); HDL Cholesterol 60 mg/dL; LDL Cholesterol Calculated 79 mg/dl; Potassium 3.9 mmol/L (3.3-5.1); Sodium 142 mmol/L (135-145); Total Protein 7.3 g/dL (6.5-8.0); Triglycerides 53 mg/dL
== END 2022-08-25 11:25 | disposition home or self-care (01) ==
LOC: HO.HMGCLDS 11:24
PROVIDERS: PCP Internal Medicine; Visit Provider Internal Medicine
DX: M54.16 Radiculopathy, lumbar region (principal); I10 Essential (primary) hypertension; E66.01 Morbid (severe) obesity due to excess calories; E78.9 Disorder of lipoprotein metabolism, unspecified
CPT/HCPCS: 36415; 80053; 80061; 85025

== ENCOUNTER 2022-09-30 13:36 | Outpatient (AMB) | payer OTHER, SELFPAY ==
[2022-09-30 13:40] VITALS: BP 146/72; PULSE 81; O2SAT 97; BMI 44.6
--- NOTE | 2022-09-30 13:40 | MHC.PC.OV ---
Vital Signs 09/30/22 13:40 Height 5 ft 4 in Weight 260 lb BMI 44.6 BP 146/72 H Blood Pressure Location Lt brachial Position Sitting Pulse 81 Pulse Source Pulse Oximeter Pulse Oximetry (%) 97 Oxygen Delivery Method Room Air Intake Visit Reasons: 4 month follow up Allergies celecoxib [From Celebrex] Adverse Reaction (Unknown, Verified 09/30/22 13:46) body rash Medication List - Last Reconciled 09/30/22 by Luna Marino MD acetaminophen 650 mg (2 x 325 mg) PO Q6H PRN 42 days cholecalciferol (vitamin D3) (Vitamin D3) 25 mcg PO DAILY latanoprost 0.005% 1 drp ophthalmic-Left BEDTIME lidocaine 5% 1 patch topical DAILY lisinopril 10 mg PO DAILY meloxicam 15 mg PO DAILY simvastatin 20 mg PO BEDTIME timolol maleate 0.5% 0 drps ophthalmic (eye) tizanidine 2 mg PO BID PRN Tobacco use date assessed: 09/30/22 Dental Screening Dental Screen Date: 09/30/22 Did you have a dental visit in the last 12 months?: Yes Did you have a dental problem in the last 6 months where you did not have access to dental care?: No Was dental information given to patient?: No HPI 4 month follow up HPI Details Patient is 61-year-old female came in today her regular 4 month follow-up Patient is currently seeing Pain Management [facility] and will be having injection right SI joint on 06 of October Patient have history of lumbar disc herniation L5-L6 currently having pain radiating down to her right leg She is taking meloxicam through specialist which is helping her . Hypertension: Blood pressure is elevated she is taking lisinopril 10 mg no side effects, it could be because of meloxicam or pain will continue to monitor Lipid control with simvastatin 20 mg Follow-up in January [facility] Medical History Arthritis Glaucoma History of cardiac murmur as a child History of seizure Hyperlipidemia Hypertension Lumbar disc herniation Morbid obesity Osteoarthritis of left knee Surgical History H/O brain surgery History of ankle surgery Hx of colonoscopy Hx of hysterectomy Total knee replacement status Family History Father Dementia Cancer Mother Ovarian cancer Brother No problems noted. Brother No problems noted. Social History Household Members: None Housing: Apartment Do you presently have visiting nurse or other home services: No Alcohol intake: current Alcohol intake frequency: holidays/special occasions only Patient Tobacco Use Status: Never used Tobacco e-Cigarette/Vaping Use: Never Used service: No Current occupational status: disabled Current occupation: Rt handed Cognitive needs: No Hearing needs: No Vision needs: No Questionnaire Thrive Questionnaire Date Thrive assessed: 01/22/21 AUDIT C Alcohol Use Questionnaire (AUDIT-C) 1. How often do you have a drink containing alcohol?: Never 3. How often do you have six or more drinks on one occasion?: Never Total Score: 0 Score Reviewed/Action Taken: Yes BONG-7 AMB Questionnaire BONG-7 Date BONG - 7 assessed: 05/27/22 Source: Developed by Drs. Manolo Hastings, Veronica Romo, Ferny Ma and colleagues, with an educational presley from [employer]. Review of Systems Const Denies chills and Denies fever(s) ENT Denies epistaxis and Denies nasal discharge Card Denies chest pain Resp Denies chest congestion, Denies cough and Denies hemoptysis GI Denies diarrhea and Denies nausea Skin/Breast Denies rash Neuro Reports no additional complaints Psych Reports no additional complaints Endo Reports no additional complaints Physical exam (Primary Care) Vital Signs: Last Vital Signs Pulse 81 09/30/22 13:40 BP 146/72 H 09/30/22 13:40 Pulse Ox 97 09/30/22 13:40 Oxygen Delivery Method Room Air 09/30/22 13:40 BMI result Body Mass Index 44.6 Tobacco/Smoking Status: Tobacco use Status Tobacco use date assessed 09/30/22 09/30/22 13:46 Patient Tobacco Use Status Never used Tobacco 09/30/22 13:41 e-Cigarette/Vaping Use Never Used 09/30/22 13:41 Thrive Assessment: Date of Thrive Assessment Date Thrive assessed 01/22/21 09/30/22 13:41 Const General: cooperative, comfortable and no acute distress Orientation/consciousness: patient oriented x3 HENMT Head: Yes normocephalic Eyes General: appearance normal, both eyes and all related structures Neck Neck: Yes supple Resp Effort & Inspection: normal respiratory effort, no cough and no stridor Cardio Rhythm: regular rhythm Heart sounds: S1 normal heart sound present and S2 normal heart sound present Skin General skin exam: turgor normal Neuro General: patient oriented x3, tone normal and moves all extremities Extrem Right lower extremity: no edema Left lower extremity: no edema Assessment and Plan Assessment & Plan (1) Right lumbar radiculitis: Code(s): M54.16 - Radiculopathy, lumbar region (2) Hypertension, essential: Code(s): I10 - Essential (primary) hypertension (3) Lipid disorder: Code(s): E78.9 - Disorder of lipoprotein metabolism, unspecified (4) Morbid obesity: Code(s): E66.01 - Morbid (severe) obesity due to excess calories Plan Patient is 61-year-old female came in today her regular 4 month follow-up Patient is currently seeing Pain Management [facility] and will be having injection right SI joint on 06 of October Patient have history of lumbar disc herniation L5-L6 currently having pain radiating down to her right leg She is taking meloxicam through specialist which is helping her . Hypertension: Blood pressure is elevated she is taking lisinopril 10 mg no side effects, it could be because of meloxicam or pain will continue to monitor Lipid control with simvastatin 20 mg Follow-up in January Coding Level of Care Code Est Pt Level 3 (76390) Diagnoses Right lumbar radiculitis M54.16 Hypertension, essential I10 Lipid disorder E78.9 Morbid obesity E66.01
== END 2022-09-30 14:27 | disposition home or self-care (01) ==
PROVIDERS: Visit Provider Internal Medicine
DX: M54.16 Radiculopathy, lumbar region (principal); I10 Essential (primary) hypertension; E66.01 Morbid (severe) obesity due to excess calories; Z68.41 Body mass index [BMI] 40.0-44.9, adult; E78.9 Disorder of lipoprotein metabolism, unspecified
CPT/HCPCS: 99213

== ENCOUNTER 2022-10-06 06:03 | Outpatient (REF) | payer OTHER, SELFPAY ==
--- NOTE | ~2022-10-06 | FL_ITS ---
EXAMINATION: XR FLUOROSCOPY WITH IMAGES CLINICAL INFORMATION: Sacrococcygeal disorders, not elsewhere classified. COMPARISON: None available. TECHNIQUE: Fluoroscopy Supervised By: Dr. Presley Freeman. Fluoroscopy Time: 0.1 minute. Cumulative Dose: 1.51 mGy. DAP: 0.0263 Gycm2. Images: 1. FINDINGS: Image demonstrates needle placement and contrast injection over the right sacroiliac joint. FL/FL guidance in treatment room IMPRESSION: Fluoroscopic guidance for right sacroiliac joint injection.
== END 2022-10-06 06:04 | disposition home or self-care (01) ==
LOC: CF 06:03
PROVIDERS: Visit Provider Anesthesiology
DX: M53.3 Sacrococcygeal disorders, not elsewhere classified (principal); M47.816 Spondylosis without myelopathy or radiculopathy, lumbar region; M16.11 Unilateral primary osteoarthritis, right hip
CPT/HCPCS: 27096; J3301

== ENCOUNTER 2022-10-06 10:38 | Outpatient (AMB) | payer OTHER, SELFPAY ==
--- NOTE | 2022-10-06 10:53 | MHC.OFFVIS ---
Intake Vital Signs 10/06/22 10:54 Height 5 ft 4 in Weight 260 lb BMI 44.6 BP 132/68 Blood Pressure Location Lt brachial Position Sitting Respiration 16 Pulse 76 Pulse Source Pulse Oximeter Pulse Oximetry (%) 98 Oxygen Delivery Method Room Air Comment pre-op Intake Visit Reasons: RIGHT THERAPEUTIC SIJ INJECTION Allergies celecoxib [From Celebrex] Adverse Reaction (Unknown, Verified 10/06/22 10:54) body rash PFSH Medical History Arthritis Glaucoma History of cardiac murmur as a child History of seizure Hyperlipidemia Hypertension Lumbar disc herniation Morbid obesity Osteoarthritis of left knee Surgical History H/O brain surgery History of ankle surgery Hx of colonoscopy Hx of hysterectomy Total knee replacement status Family History Father Dementia Cancer Mother Ovarian cancer Brother No problems noted. Brother No problems noted. Social History Household Members: None Housing: Apartment Do you presently have visiting nurse or other home services: No Alcohol intake: current Alcohol intake frequency: holidays/special occasions only Patient Tobacco Use Status: Never used Tobacco e-Cigarette/Vaping Use: Never Used service: No Current occupational status: disabled Current occupation: Rt handed Cognitive needs: No Hearing needs: No Vision needs: No Physical Exam Vital Signs: Last Vital Signs Pulse 76 10/06/22 10:54 Resp 16 10/06/22 10:54 BP 132/68 10/06/22 10:54 Pulse Ox 98 10/06/22 10:54 Oxygen Delivery Method Room Air 10/06/22 10:54 BMI result Body Mass Index 44.6 Assessment & Plan Assessment & Plan (1) Facet arthritis of lumbar region: Code(s): M47.816 - Spondylosis without myelopathy or radiculopathy, lumbar region (2) Sacro-iliac pain: Code(s): M53.3 - Sacrococcygeal disorders, not elsewhere classified Plan: Right therapeutic sacroiliac joint injection Informed consent was explained thoroughly to the patient. All questions about benefits and risks for the procedure were answered. Patient came to the operating room and was positioned prone on the operating table with the pillow under the pelvis.Citizen Of [place] [employer]hes[employer] monitors were applied and patient was deeply sedated. The lower back and buttocks of the patient were prepped with ChloraPrep prepped and draped with sterile utility towels. Sterilely draped C-arm was brought over the operating field and sq picture of patient's pelvis was demonstrated on the screen. For the right joint tilting C-arm contralateral to the site of the joint the most posterior portion of the joints was superimposed with anterior silhouette of the joint. Skin was injected in the projection of the joint slightly medial to the location of the joint with 25 gauge 1/2 inch needle using local lidocaine 2% .After that 22 gauge 3 and 1/2 inch needle was driven to the right joint in tunnel vision fashion. When needle entered the joint capsule injection of the contrast was performed demonstrating intra-articular and minimally periarticular spread of the contrast. After that 6 cc. of ropivacaine 0.5% mixed with kenalog 40 mg was injected into the joint. Upon completion of the injections the needle was removed Sterile dressing was applied. Upon completion of the injection patient was taken outside of the operating room to the recovery room where recovered uneventfully (3) Osteoarthritis of right hip: Code(s): M16.11 - Unilateral primary osteoarthritis, right hip Plan Suzi Bird is a pleasant 61-year-old female who presented to the office today with complaints of right hip and right lower back pain. She reports that this has been going on for at least 2 years with no inciting injury. Pain intermittently radiating down the right leg to the level of the calf. Patient positive on exam for right sacroiliac pain, patient with moderate tenderness to palpation right posterior superior iliac spine with radiation into the butt and groin. Stinchfield, Romeo finger and thigh thrust exams positive indicative of SI joint pain. Patient's x-ray reviewed and does show facet arthritis though on exam patient with negative facet loading test; does not appear to be her pain generator. Patient has full active range of motion of the right hip, pain unchanged with range of motion, pain unchanged with internal external rotation; unlikely to be cause of patient's pain. Discussed diagnostic right SI joint injection and if positive results will follow with therapeutic SI joint injection. Also discussed with patient options of treatment for lower back pain with peripheral nerve stimulation with Sprint, RFA and spinal cord stimulation. Informational pamphlets provided. The risks, consequences, alternatives, and benefits of various treatment options were discussed with the patient in great detail, including conservative management, injections and procedures. Patient hesitant to commit to any interventional treatment today, would like to discuss with the family prior to scheduling. Patient states she will call before the end of the week to let us know if she would like to schedule diagnostic right SI joint injection with fluoroscopy. Script for lidocaine patches provided. Side effects were discussed with patient. All questions and concerns have been answered and patient agrees with the plan. Patient will call if she would like to proceed with SI joint injections. Justification for interventional therapy: ? Patient with average pain > 6/10 ? Patient has exhausted conservative therapy, physical therapy, NSAIDs Orders: Orders FL guidance in treatment room Today M53.3 - Sacrococcygeal disorders, not elsewhere classified Coding Level of Care Code Procedure Only Diagnoses Facet arthritis of lumbar region M47.816 Sacro-iliac pain M53.3 Osteoarthritis of right hip M16.11
[2022-10-06 10:54] VITALS: BP 132/68; PULSE 76; RESP 16; O2SAT 98; BMI 44.6
== END 2022-10-06 11:38 | disposition home or self-care (01) ==
LOC: HO.PMCPRC 10:38
PROVIDERS: PCP Internal Medicine; Visit Provider Anesthesiology
DX: M53.3 Sacrococcygeal disorders, not elsewhere classified (principal)
CPT/HCPCS: 27096

== ENCOUNTER 2022-11-10 10:20 | Outpatient (AMB) | payer OTHER, SELFPAY ==
[2022-11-10 10:30] VITALS: BP 130/68; PULSE 83; RESP 16; O2SAT 99; BMI 44.6
--- NOTE | 2022-11-10 10:30 | MHC.OFFVIS ---
Intake Vital Signs 11/10/22 10:30 Height 5 ft 4 in Weight 260 lb BMI 44.6 BP 130/68 Blood Pressure Location Lt brachial Position Sitting Respiration 16 Pulse 83 Pulse Source Pulse Oximeter Pulse Oximetry (%) 99 Oxygen Delivery Method Room Air Intake Visit Reasons: R SIJ INJ WITH STEROID 10/06/22/ CONFIRMED Allergies celecoxib [From Celebrex] Adverse Reaction (Unknown, Verified 11/10/22 10:30) body rash HPI HPI Comments History of Present Illness Details Suzi Bird presents back to the office today for follow-up, 1 month status post therapeutic right sacroiliac joint injection. Patient reports that she continues to have relief of her pain to the right lower back. Today she states her right leg has been weak, this was present prior to the injection. She states that now that she is not focusing on the right lower back pain the weakness has become more noticeable. She states it ?feels like it is going to give out ?. She denies any new injuries or recent falls. She does use a Rollator walker for ambulation because she is scared of falling. She denies burning, tingling, numbness of the right lower leg. She denies new loss of bowel, bladder or saddle anesthesia. Prior: Patient is a pleasant 61-year-old female who presents to the office today for new patient intake after referral from primary care for right lower back, right hip and right groin pain. Patient reports the pain has been going on for the last 2 years and today is rated as a 4/10. Patient states the pain is in her right lower back and right groin with radiation into the buttocks and occasional radiation laterally down the right leg the level of the calf. Patient had a recent x-ray which was reviewed in the office today, results as below. Patient describes the pain as a constant ache that gets worse with walking and movement. Reports that he is helpful in decreasing the pain. She currently takes meloxicam she was prescribed post TKA but this is not touch her pain. Patient states that she has had injections in her back more than 5 years ago at [facility] that did not help her pain. Patient completed physical therapy November 2021 and states that she was doing home exercise program but recently stopped because it was causing worsening pain. Pain came on gradually and is impacting her ability to sleep but she is unable to find a position of comfort. Patient is on permanent disability secondary to the pain. In terms of muscle damage her condition is described as pulsing throbbing pounding tugging pulling ranging spread and radiating and piercing. Past medical history of headaches, hypertension, elevated cholesterol, osteoarthritis of the right hip, glaucoma and arthritis. Past surgical history right knee replacement November 2017, left knee replacement September 2021, hysterectomy December 2005 and left ankle surgery June 1994. [facility] Medical History Arthritis Glaucoma History of cardiac murmur as a child History of seizure Hyperlipidemia Hypertension Lumbar disc herniation Morbid obesity Osteoarthritis of left knee Surgical History H/O brain surgery History of ankle surgery Hx of colonoscopy Hx of hysterectomy Total knee replacement status Family History Father Dementia Cancer Mother Ovarian cancer Brother No problems noted. Brother No problems noted. Social History Household Members: None Housing: Apartment Do you presently have visiting nurse or other home services: No Alcohol intake: current Alcohol intake frequency: holidays/special occasions only Patient Tobacco Use Status: Never used Tobacco e-Cigarette/Vaping Use: Never Used service: No Current occupational status: disabled Current occupation: Rt handed Cognitive needs: No Hearing needs: No Vision needs: No Review of Systems Const All systems reviewed & are unremarkable except as noted in HPI and below Physical Exam Vital Signs: Last Vital Signs Pulse 83 11/10/22 10:30 Resp 16 11/10/22 10:30 BP 130/68 11/10/22 10:30 Pulse Ox 99 11/10/22 10:30 Oxygen Delivery Method Room Air 11/10/22 10:30 BMI result Body Mass Index 44.6 General: awake, alert, oriented. Answers questions appropriately. Fully engaged in examination. Skin: warm, dry, intact without visible rashes or lesions. HEENT: Normocephalic. Conjuntivae clear without exudate. Sclera non-icteric. Hearing intact. Cardiac: External chest normal in appearance. Respiratory: No cough, audible wheezing or stridor. Abdomen: without gross distension. MS: No obvious swelling or deformities. Ambulates with use of Rollator walker. Back: ?Able to transition from sit to stand unassisted. Ambulates with bilaterally normal heel strike and toe off Neurological: Oriented to person, place, time and situation. Thought process intact. Psychiatric: Appropriate mood and affect. Good judgment and insight. Const Other: Assessment & Plan Assessment & Plan (1) Right lumbar radiculitis: Code(s): M54.16 - Radiculopathy, lumbar region (2) Right leg weakness: Code(s): R29.898 - Other symptoms and signs involving the musculoskeletal system (3) Facet arthritis of lumbar region: Code(s): M47.816 - Spondylosis without myelopathy or radiculopathy, lumbar region (4) Sacro-iliac pain: Code(s): M53.3 - Sacrococcygeal disorders, not elsewhere classified (5) Sacroiliac dysfunction: Code(s): M53.3 - Sacrococcygeal disorders, not elsewhere classified Plan Suzi Bird is a pleasant 61-year-old female who presented to the office today for follow up, 1 month status post therapeutic sacroiliac joint injection. Patient reports that her pain has continued to be improved since the injection. Her main concern today is right lower extremity weakness. She denies red flag symptoms including new loss of bowel, bladder or saddle anesthesia. This weakness was present prior to the injection and has been present for years. Since pain is improved the weakness has become more bothersome. MRI lumbar spine without contrast ordered for further evaluation. Patient advised to seek treatment in the emergency room for any new cauda equina symptoms. All questions and concerns have been answered and patient agrees with the plan. Will follow up in the office after MRI, sooner if needed. Orders: Orders MR lumbar spine wo con Today M54.16 - Radiculopathy, lumbar region, R29.898 - Other symptoms and signs involving the musculoskeletal system Coding Level of Care Code Est Pt Level 3 (41022) Diagnoses Right lumbar radiculitis M54.16 Right leg weakness R29.898 Facet arthritis of lumbar region M47.816 Sacro-iliac pain M53.3 Sacroiliac dysfunction M53.3
== END 2022-11-10 11:16 | disposition home or self-care (01) ==
PROVIDERS: PCP Internal Medicine; Visit Provider Registered Nurse Emergency
DX: M54.16 Radiculopathy, lumbar region (principal); R29.898 Other symptoms and signs involving the musculoskeletal system; M47.816 Spondylosis without myelopathy or radiculopathy, lumbar region; M53.3 Sacrococcygeal disorders, not elsewhere classified
CPT/HCPCS: 99213

== ENCOUNTER → 2022-11-10 10:20 | Outpatient (BNVA) | payer OTHER, SELFPAY | PROVIDERS: PCP Internal Medicine; Visit Provider Registered Nurse Emergency | DX: M54.16 Radiculopathy, lumbar region (principal); M47.816 Spondylosis without myelopathy or radiculopathy, lumbar region; M53.3 Sacrococcygeal disorders, not elsewhere classified; R29.898 Other symptoms and signs involving the musculoskeletal system | CPT/HCPCS: 99212 ==

== ENCOUNTER 2022-12-28 14:11 | Outpatient (REF) | payer OTHER, SELFPAY ==
--- NOTE | ~2022-12-28 | MR_ITS ---
EXAMINATION: MR LUMBAR SPINE WITHOUT CONTRAST CLINICAL INFORMATION: Radiculopathy, lumbar region COMPARISON: Lumbar spine radiographs on 05/27/2022 TECHNIQUE: MRI of the lumbar spine was obtained using routine sequences without contrast. FINDINGS: Mild levocurvature of the lumbar spine. Grade 1 anterolisthesis at L5-S1 with suggestion of chronic appearing pars defects bilaterally. Mild retrolisthesis at L4-L5. Heterogeneous bone marrow signal, likely degenerative. No acute bone marrow abnormality. The vertebral body heights are preserved. Multilevel disc desiccation and disc height loss. There is Modic type II endplate changes at L5-S1. The visualized spinal cord is normal in caliber. No abnormal cord signal. The conus medullaris terminates at L1. Small disc bulges at T9-T10, T10-T11, and T11-T12 partially imaged on the sagittal sequences. Evaluation for spinal canal stenosis is limited at these levels. There is mild right greater than left neural foraminal narrowing at T11-T12. T12-L1: Diffuse disc bulge and prominent dorsal epidural fat. No significant spinal canal stenosis. Mild left greater than right neural foraminal narrowing. L1-L2: Diffuse disc bulge with superimposed right foraminal disc protrusion. Annular fissure and prominent dorsal epidural fat. No significant spinal canal or neural foraminal narrowing. L2-L3: Diffuse disc bulge with superimposed right foraminal disc protrusion. Annular fissure. There is mass effect on the ventral aspect of the thecal sac without significant spinal canal stenosis. Mild right neural foraminal narrowing. L3-L4: Disc bulge with superimposed annular fissure. There is mass effect on the ventral thecal sac without significant spinal canal stenosis. No significant neural foraminal narrowing. L4-L5: Diffuse disc bulge with superimposed annular fissure. Bilateral facet arthrosis. Moderate right and mild left neural foraminal narrowing with the disc abutting the right exiting L4 nerve roots. L5-S1: Diffuse disc bulge and bilateral facet arthrosis. Moderate bilateral neural foraminal narrowing with mass effect on the exiting L5 nerve roots bilaterally. Mild diffuse atrophy of the parasacral musculature. MR/MR lumbar spine wo con IMPRESSION: -Grade 1 anterolisthesis at L5-S1 with suggestion of chronic appearing pars defects bilaterally, contributing to moderate bilateral neural foraminal narrowing with mass effect on the exiting L5 nerve roots bilaterally. -Multilevel lumbar spondylosis as described above without significant spinal canal stenosis. At L4-L5, diffuse disc bulge with superimposed right foraminal disc protrusion results in moderate right and mild left neural foraminal narrowing with disc abutting the right exiting L4 nerve roots.
== END 2022-12-28 14:12 | disposition home or self-care (01) ==
LOC: HO.MRI 14:11
PROVIDERS: PCP Internal Medicine; Visit Provider Registered Nurse Emergency
DX: M54.16 Radiculopathy, lumbar region (principal); R29.898 Other symptoms and signs involving the musculoskeletal system
CPT/HCPCS: 72148

== ENCOUNTER 2023-01-12 13:56 | Outpatient (AMB) | payer OTHER, SELFPAY ==
--- NOTE | 2023-01-12 14:07 | MHC.OFFVIS ---
Intake Vital Signs 01/12/23 14:08 Height 5 ft 4 in BMI Reason not done Patient refused/unable BP 170/75 H Blood Pressure Location Lt brachial Position Sitting Respiration 16 Pulse 80 Pulse Source Pulse Oximeter Pulse Oximetry (%) 98 Oxygen Delivery Method Room Air Intake Visit Reasons: Follow Up/MRI Results/confirmed Allergies celecoxib [From Celebrex] Adverse Reaction (Unknown, Verified 01/12/23 14:08) body rash HPI HPI Comments History of Present Illness Details Suzi Bird presents back to the office today for follow up and review of recent MRI. MRI reviewed, results as per below. Patient continues with right lower back pain radiating down right buttock to the ankle. She endorses RLE weakness and feels like she is going to fall secondary to the weakness, she has been using a walker for ambulation. She reports therapeutic SIJ injections provided some short term relief, lasted only 2 weeks before pain returned. Denies red flag symptoms including new loss of bowel, bladder or saddle anesthesia. Prior: Suzi Bird presents back to the office today for follow-up, 1 month status post therapeutic right sacroiliac joint injection. Patient reports that she continues to have relief of her pain to the right lower back. Today she states her right leg has been weak, this was present prior to the injection. She states that now that she is not focusing on the right lower back pain the weakness has become more noticeable. She states it ?feels like it is going to give out ?. She denies any new injuries or recent falls. She does use a Rollator walker for ambulation because she is scared of falling. She denies burning, tingling, numbness of the right lower leg. She denies new loss of bowel, bladder or saddle anesthesia. Prior: Patient is a pleasant 61-year-old female who presents to the office today for new patient intake after referral from primary care for right lower back, right hip and right groin pain. Patient reports the pain has been going on for the last 2 years and today is rated as a 4/10. Patient states the pain is in her right lower back and right groin with radiation into the buttocks and occasional radiation laterally down the right leg the level of the calf. Patient had a recent x-ray which was reviewed in the office today, results as below. Patient describes the pain as a constant ache that gets worse with walking and movement. Reports that he is helpful in decreasing the pain. She currently takes meloxicam she was prescribed post TKA but this is not touch her pain. Patient states that she has had injections in her back more than 5 years ago at [facility] that did not help her pain. Patient completed physical therapy November 2021 and states that she was doing home exercise program but recently stopped because it was causing worsening pain. Pain came on gradually and is impacting her ability to sleep but she is unable to find a position of comfort. Patient is on permanent disability secondary to the pain. In terms of muscle damage her condition is described as pulsing throbbing pounding tugging pulling ranging spread and radiating and piercing. Past medical history of headaches, hypertension, elevated cholesterol, osteoarthritis of the right hip, glaucoma and arthritis. Past surgical history right knee replacement November 2017, left knee replacement September 2021, hysterectomy December 2005 and left ankle surgery June 1994. [facility] Medical History Arthritis Glaucoma History of cardiac murmur as a child History of seizure Hyperlipidemia Hypertension Lumbar disc herniation Morbid obesity Osteoarthritis of left knee Surgical History H/O brain surgery History of ankle surgery Hx of colonoscopy Hx of hysterectomy Total knee replacement status Family History Father Dementia Cancer Mother Ovarian cancer Brother No problems noted. Brother No problems noted. Social History Household Members: None Housing: Apartment Do you presently have visiting nurse or other home services: No Alcohol intake: current Alcohol intake frequency: holidays/special occasions only Patient Tobacco Use Status: Never used Tobacco e-Cigarette/Vaping Use: Never Used service: No Current occupational status: disabled Current occupation: Rt handed Cognitive needs: No Hearing needs: No Vision needs: No Review of Systems Const All systems reviewed & are unremarkable except as noted in HPI and below Physical Exam Vital Signs: Last Vital Signs Pulse 80 01/12/23 14:08 Resp 16 01/12/23 14:08 BP 170/75 H 01/12/23 14:08 Pulse Ox 98 01/12/23 14:08 Oxygen Delivery Method Room Air 01/12/23 14:08 General: awake, alert, oriented. Answers questions appropriately. Fully engaged in examination. Skin: warm, dry, intact without visible rashes or lesions. HEENT: Normocephalic. Conjuntivae clear without exudate. Sclera non-icteric. Hearing intact. Cardiac: External chest normal in appearance. Respiratory: No cough, audible wheezing or stridor. Abdomen: without gross distension. MS: No obvious swelling or deformities. Ambulates with use of Rollator walker. Back: ?Able to transition from sit to stand unassisted. Ambulates with antalgic gait Neurological: Oriented to person, place, time and situation. Thought process intact. Psychiatric: Appropriate mood and affect. Good judgment and insight. Const Other: Results Reviewed Results Reviewed: MR/MR lumbar spine wo con 12/28/2022 FINDINGS: Mild levocurvature of the lumbar spine. Grade 1 anterolisthesis at L5-S1 with suggestion of chronic appearing pars defects bilaterally. Mild retrolisthesis at L4-L5. Heterogeneous bone marrow signal, likely degenerative. No acute bone marrow abnormality. The vertebral body heights are preserved. Multilevel disc desiccation and disc height loss. There is Modic type II endplate changes at L5-S1. The visualized spinal cord is normal in caliber. No abnormal cord signal. The conus medullaris terminates at L1. Small disc bulges at T9-T10, T10-T11, and T11-T12 partially imaged on the sagittal sequences. Evaluation for spinal canal stenosis is limited at these levels. There is mild right greater than left neural foraminal narrowing at T11-T12. T12-L1: Diffuse disc bulge and prominent dorsal epidural fat. No significant spinal canal stenosis. Mild left greater than right neural foraminal narrowing. L1-L2: Diffuse disc bulge with superimposed right foraminal disc protrusion. Annular fissure and prominent dorsal epidural fat. No significant spinal canal or neural foraminal narrowing. L2-L3: Diffuse disc bulge with superimposed right foraminal disc protrusion. Annular fissure. There is mass effect on the ventral aspect of the thecal sac without significant spinal canal stenosis. Mild right neural foraminal narrowing. L3-L4: Disc bulge with superimposed annular fissure. There is mass effect on the ventral thecal sac without significant spinal canal stenosis. No significant neural foraminal narrowing. L4-L5: Diffuse disc bulge with superimposed annular fissure. Bilateral facet arthrosis. Moderate right and mild left neural foraminal narrowing with the disc abutting the right exiting L4 nerve roots. L5-S1: Diffuse disc bulge and bilateral facet arthrosis. Moderate bilateral neural foraminal narrowing with mass effect on the exiting L5 nerve roots bilaterally. Mild diffuse atrophy of the parasacral musculature. IMPRESSION: -Grade 1 anterolisthesis at L5-S1 with suggestion of chronic appearing pars defects bilaterally, contributing to moderate bilateral neural foraminal narrowing with mass effect on the exiting L5 nerve roots bilaterally. -Multilevel lumbar spondylosis as described above without significant spinal canal stenosis. At L4-L5, diffuse disc bulge with superimposed right foraminal disc protrusion results in moderate right and mild left neural foraminal narrowing with disc abutting the right exiting L4 nerve roots. Assessment & Plan Assessment & Plan (1) Right lumbar radiculitis: Code(s): M54.16 - Radiculopathy, lumbar region (2) Right leg weakness: Code(s): R29.898 - Other symptoms and signs involving the musculoskeletal system (3) Facet arthritis of lumbar region: Code(s): M47.816 - Spondylosis without myelopathy or radiculopathy, lumbar region (4) Sacro-iliac pain: Code(s): M53.3 - Sacrococcygeal disorders, not elsewhere classified (5) Sacroiliac dysfunction: Code(s): M53.3 - Sacrococcygeal disorders, not elsewhere classified (6) Epidural lipomatosis: Code(s): D17.79 - Benign lipomatous neoplasm of other sites Plan Suzi Bird is a pleasant 61-year-old female who presented to the office today for follow up and review of MRI. MRI reviewed, results as per above. Patient reports that her pain persists since the injection, she does not want to repeat at this time. Her main concern today is right lower extremity weakness.She denies red flag symptoms including new loss of bowel, bladder or saddle anesthesia. Will refer to neurosurgery for evaluation Patient advised to seek treatment in the emergency room for any new cauda equina symptoms. All questions and concerns have been answered and patient agrees with the plan. Orders: Referrals Neuro Spine Referral D17.79 - Benign lipomatous neoplasm of other sites, M54.16 - Radiculopathy, lumbar region, R29.898 - Other symptoms and signs involving the musculoskeletal system Coding Level of Care Code Est Pt Level 3 (37473) Diagnoses Right lumbar radiculitis M54.16 Right leg weakness R29.898 Facet arthritis of lumbar region M47.816 Sacro-iliac pain M53.3 Sacroiliac dysfunction M53.3 Epidural lipomatosis D17.79
[2023-01-12 14:08] VITALS: BP 170/75; PULSE 80; RESP 16; O2SAT 98
== END 2023-01-12 14:20 | disposition home or self-care (01) ==
PROVIDERS: PCP Internal Medicine; Visit Provider Registered Nurse Emergency
DX: M54.16 Radiculopathy, lumbar region (principal); R29.898 Other symptoms and signs involving the musculoskeletal system; M47.816 Spondylosis without myelopathy or radiculopathy, lumbar region; M53.3 Sacrococcygeal disorders, not elsewhere classified; D17.79 Benign lipomatous neoplasm of other sites
CPT/HCPCS: 99213

== ENCOUNTER → 2023-01-12 13:56 | Outpatient (BNVA) | payer OTHER, SELFPAY | PROVIDERS: PCP Internal Medicine; Visit Provider Registered Nurse Emergency | DX: M54.16 Radiculopathy, lumbar region (principal); M47.816 Spondylosis without myelopathy or radiculopathy, lumbar region; M53.3 Sacrococcygeal disorders, not elsewhere classified; D17.79 Benign lipomatous neoplasm of other sites; R29.898 Other symptoms and signs involving the musculoskeletal system | CPT/HCPCS: 99212 ==

== ENCOUNTER 2023-02-18 13:16 | Outpatient (REF) | payer OTHER, SELFPAY | END 2023-02-18 13:17 | disposition home or self-care (01) | LOC: HO.HOSX 13:16 | PROVIDERS: PCP Internal Medicine; Referring Provider Registered Nurse Emergency; Visit Provider Physician Assistant | DX: M54.16 Radiculopathy, lumbar region (principal); M25.551 Pain in right hip | CPT/HCPCS: 99202 ==

== ENCOUNTER 2023-02-18 13:16 | Outpatient (AMB) | payer OTHER, SELFPAY ==
--- NOTE | 2023-02-18 13:36 | HO.SPINEOV ---
Intake Intake Visit Reasons: Radiculopathy, lumbar region Intake Note: Ms. Moralez is here today c/o low back pain. [place] [facility] [place] Driller Required: No Allergies latex Allergy (Intermediate, Verified 02/18/23 13:32) Rash celecoxib [From Celebrex] Adverse Reaction (Unknown, Verified 01/12/23 14:08) body rash Assessment & Plan Assessment & Plan (1) Hip pain, right: Code(s): M25.551 - Pain in right hip (2) Right lumbar radiculitis: Code(s): M54.16 - Radiculopathy, lumbar region Plan Dear Sol, Thank you for referring Mrs Moralez to our office today. She is a 62-year-old morbidly obese female who has had chronic low back pain on the right side for many years, who about 6 or 7 months ago started to noticed a progressive worsening of right leg pain which goes from her back to the front of her groin, into her right buttock right lateral hip, posterior lateral thigh and into her lateral calf. It is aggravated with standing and walking. She is gotten to the point now with a hip and the leg pain are so bad she has to use a walker otherwise she is limping and feeling like she is going to fall down. She has no symptoms on the left side. The symptoms will bother her at night if she is lying on her right side. She takes meloxicam, Tylenol but does not feel as though they done anything. She underwent 2 SI joint blocks and these gave her some marginal improvement but nothing significant. She underwent physical therapy as well. She comes today for evaluation with an MRI showing spondylolysis at L5 with grade 1 spondylolisthesis with severe disc collapse and bilateral foraminal stenosis. PMH: Morbidly obese with BMI of 44, history of hypertension, 2 knee replacements, hysterectomy, ankle surgery in 1994. She had meningitis in 1962 and they did drain some fluid off for brain at that time. Denies any history of heart attacks, strokes, lung issues, renal disorders or coagulopathies Social hx: She does not smoke, denies any use of alcohol or drugs Medications: Lisinopril, meloxicam, vitamin-D, simvastatin, tizanidine, timolol, latanoprost Allergies: The patient reports history of allergy to latex, but it sounds like she is allergic to the Op site dressing that she had on her knee during 1 of her knee replacements. Celebrex gives her rash Physical exam: Morbidly obese female no acute distress, she is awake alert oriented, she is able to stand up out of a chair and walk on her own but she limbs and has a slight Trendelenburg gait. Negative EHLLEN testing, gross motor examination is normal. Positive finger Romeo test, reflexes diffusely diminished bilaterally in lower extremities Imaging review: Lumbar MRI done at [place] shows that she has multilevel degenerative disc disease with severe collapse of the disc space at L5-S1 with anterior listhesis grade 1 and bilateral pars defects with bilateral neural foraminal stenosis. Impression: 62-year-old morbidly obese female presents with chronic low back pain on the right side now progressing to what sounds like a radiculopathy going down in an L5 distribution. There was some modest improvement from the SI joint injection, but I think she is dealing with compression of the L5 nerve secondary to the pars defect/spondylolisthesis construct at the L5-S1 level. Ultimately she is going to need a fusion to address this. We discussed treatment options at length. At this time, she is trying to avoid surgery. She would be interested in trying a right L5 TFE to see if she can hold off from surgery for a while longer. She understands that this is not a long-term fix. Also, I will get a hip x-ray just to rule out that were dealing with any kind of hip pathology overlapping the lumbar radiculopathy as she does have a significant amount of groin pain as well. Previous x-rays done 2 years ago showed extensive arthritis in the right hip. I told her to follow up with us in 3 months, we can reassess after the TFE and see how she is doing. Thank you for allowing us to care for your patient. The total time spent with this visit with this patient was 45 minutes reviewing history, physical exam, lumbar MRI imaging review, and implementation of treatment plan or further diagnostic testing Biju Benz MD,PhD [facility] Orders: Orders XR hip RT min 2V Today M25.551 - Pain in right hip, M54.16 - Radiculopathy, lumbar region Coding Level of Care Code New Pt Level 4 (95066) Diagnoses Hip pain, right M25.551 Right lumbar radiculitis M54.16
== END 2023-02-18 14:29 | disposition home or self-care (01) ==
PROVIDERS: PCP Internal Medicine; Referring Provider Registered Nurse Emergency; Visit Provider Physician Assistant
DX: M25.551 Pain in right hip (principal); M54.16 Radiculopathy, lumbar region
CPT/HCPCS: 99204

== ENCOUNTER 2023-03-17 14:29 | Outpatient (AMB) | payer OTHER, SELFPAY ==
[2023-03-17 14:33] VITALS: BP 168/90; PULSE 88; O2SAT 99; BMI 43.8
--- NOTE | 2023-03-17 14:33 | MHC.PC.OV ---
Vital Signs 03/17/23 14:33 Height 5 ft 4 in Weight 255 lb 4 oz BMI 43.8 BP 168/90 H Blood Pressure Location Rt brachial Position Sitting Pulse 88 Pulse Source Pulse Oximeter Pulse Oximetry (%) 99 Oxygen Delivery Method Room Air Intake Visit Reasons: 4 month fu ( Meds ) Allergies latex Allergy (Intermediate, Verified 03/17/23 14:37) Rash celecoxib [From Celebrex] Adverse Reaction (Unknown, Verified 03/17/23 14:37) body rash Medication List - Last Reconciled 03/17/23 by Luna Marino MD acetaminophen 650 mg (2 x 325 mg) PO Q6H PRN 42 days cholecalciferol (vitamin D3) (Vitamin D3) 25 mcg PO DAILY latanoprost 0.005% 1 drp ophthalmic-Left BEDTIME lisinopril 10 mg PO DAILY miscellaneous medical supply 1 ea miscellaneous ONCE [Rollator walker As directed] Shower Chair As directed simvastatin 20 mg PO BEDTIME timolol maleate 0.5% 0 drps ophthalmic (eye) tizanidine 2 mg PO BID PRN Tobacco use date assessed: 03/17/23 Dental Screening Dental Screen Date: 03/17/23 Did you have a dental visit in the last 12 months?: Yes Did you have a dental problem in the last 6 months where you did not have access to dental care?: No Was dental information given to patient?: Patient has dentist HPI 4 month fu ( Meds ) HPI Details Patient is 62-year-old female came in today her regular 4 month follow-up Patient is currently seeing Pain Management [facility] for sacroiliac pain Patient have history of lumbar disc herniation L5-L6 having pain radiating down to her right leg She is taking meloxicam through specialist which is helping her . Hypertension: Blood pressure is elevated she is taking lisinopril 10 mg no side effects, I am increasing the dose to 20 mg Patient also have slightly low hemoglobin And impaired fasting sugar She is due for labs to be done today Lipid control with simvastatin 20 mg Follow-up 4 months [facility] Medical History History of cardiac murmur as a child History of seizure Osteoarthritis of left knee Lumbar disc herniation Arthritis Glaucoma Morbid obesity Hyperlipidemia Hypertension Surgical History Total knee replacement status Hx of colonoscopy History of ankle surgery H/O brain surgery Hx of hysterectomy Family History Father Dementia Cancer Mother Ovarian cancer Brother No problems noted. Brother No problems noted. Social History Household Members: None Housing: Apartment Do you presently have visiting nurse or other home services: No Alcohol intake: current Alcohol intake frequency: holidays/special occasions only Patient Tobacco Use Status: Never used Tobacco e-Cigarette/Vaping Use: Never Used service: No Current occupational status: disabled Current occupation: Rt handed Cognitive needs: No Hearing needs: No Vision needs: No Questionnaire Thrive Questionnaire Date Thrive assessed: 01/22/21 AUDIT C Alcohol Use Questionnaire (AUDIT-C) 1. How often do you have a drink containing alcohol?: Never 3. How often do you have six or more drinks on one occasion?: Never Total Score: 0 Score Reviewed/Action Taken: Yes BONG-7 AMB Questionnaire BNOG-7 Date BONG - 7 assessed: 05/27/22 Source: Developed by Drs. Manolo Hastings, Veronica Romo, Ferny Ma and colleagues, with an educational presley from [employer]. Review of Systems Const Denies chills and Denies fever(s) ENT Denies epistaxis and Denies nasal discharge Card Denies chest pain Resp Denies chest congestion, Denies cough and Denies hemoptysis GI Denies diarrhea and Denies nausea Skin/Breast Denies rash Neuro Reports no additional complaints Psych Reports no additional complaints Endo Reports no additional complaints Physical exam (Primary Care) Vital Signs: Last Vital Signs Pulse 88 03/17/23 14:33 BP 168/90 H 03/17/23 14:33 Pulse Ox 99 03/17/23 14:33 Oxygen Delivery Method Room Air 03/17/23 14:33 BMI result Body Mass Index 43.8 Tobacco/Smoking Status: Tobacco use Status Tobacco use date assessed 03/17/23 03/17/23 14:37 Patient Tobacco Use Status Never used Tobacco 03/17/23 14:37 e-Cigarette/Vaping Use Never Used 03/17/23 14:37 Thrive Assessment: Date of Thrive Assessment Date Thrive assessed 01/22/21 03/17/23 14:37 Const General: cooperative, comfortable and no acute distress Orientation/consciousness: patient oriented x3 HENMT Head: Yes normocephalic Eyes General: appearance normal, both eyes and all related structures Neck Neck: Yes supple Resp Effort & Inspection: normal respiratory effort, no cough and no stridor Cardio Rhythm: regular rhythm Heart sounds: S1 normal heart sound present and S2 normal heart sound present Skin General skin exam: turgor normal Neuro General: patient oriented x3, tone normal and moves all extremities Extrem Right lower extremity: no edema Left lower extremity: no edema Assessment and Plan Assessment & Plan (1) Anemia: Code(s): D64.9 - Anemia, unspecified Qualifiers: Anemia type: other cause Other causes of anemia: chronic disease, other Qualified Code(s): D63.8 - Anemia in other chronic diseases classified elsewhere (2) Impaired fasting blood sugar: Code(s): R73.01 - Impaired fasting glucose (3) Hypertension, essential: Code(s): I10 - Essential (primary) hypertension (4) Lipid disorder: Code(s): E78.9 - Disorder of lipoprotein metabolism, unspecified (5) Morbid obesity: Code(s): E66.01 - Morbid (severe) obesity due to excess calories (6) Right lumbar radiculitis: Code(s): M54.16 - Radiculopathy, lumbar region Plan Patient is 62-year-old female came in today her regular 4 month follow-up Patient is currently seeing [facility] for sacroiliac pain Patient have history of lumbar disc herniation L5-L6 having pain radiating down to her right leg She is taking meloxicam through specialist which is helping her . Hypertension: Blood pressure is elevated she is taking lisinopril 10 mg no side effects, I am increasing the dose to 20 mg Patient also have slightly low hemoglobin And impaired fasting sugar Is having difficulty losing weight BMI is elevated She is due for labs to be done today Lipid control with simvastatin 20 mg Follow-up 4 months Orders: Orders Complete Blood Count Auto Diff Today D64.9 - Anemia, unspecified, E66.01 - Morbid (severe) obesity due to excess calories, E78.9 - Disorder of lipoprotein metabolism, unspecified, I10 - Essential (primary) hypertension, R73.01 - Impaired fasting glucose Comprehensive Met. Panel Today D64.9 - Anemia, unspecified, E66.01 - Morbid (severe) obesity due to excess calories, E78.9 - Disorder of lipoprotein metabolism, unspecified, I10 - Essential (primary) hypertension, R73.01 - Impaired fasting glucose Hemoglobin A1c Today R73.01 - Impaired fasting glucose Medications: Changed From lisinopril 10 mg PO DAILY 90 tabs 0RF To lisinopril 20 mg PO DAILY 90 tabs 1RF 90 days Coding Level of Care Code Est Pt Level 4 (93305) Diagnoses Anemia in other chronic diseases classified elsewhere D63.8 Anemia type: other cause Other causes of anemia: chronic disease, other Impaired fasting blood sugar R73.01 Hypertension, essential I10 Lipid disorder E78.9 Morbid obesity E66.01 Right lumbar radiculitis M54.16
== END 2023-03-17 14:51 | disposition home or self-care (01) ==
LOC: HO.HMGC 14:29
PROVIDERS: PCP Internal Medicine; Visit Provider Internal Medicine
DX: R73.01 Impaired fasting glucose (principal); E66.01 Morbid (severe) obesity due to excess calories; Z68.41 Body mass index [BMI] 40.0-44.9, adult; I10 Essential (primary) hypertension; D63.8 Anemia in other chronic diseases classified elsewhere; E78.9 Disorder of lipoprotein metabolism, unspecified; M54.16 Radiculopathy, lumbar region
CPT/HCPCS: 99214

== ENCOUNTER 2023-03-17 14:51 | Outpatient (REF) | payer OTHER, SELFPAY ==
--- NOTE | ~2023-03-17 | XR_ITS ---
EXAMINATION: XR HIP, RIGHT CLINICAL INFORMATION: Pain in right hip. COMPARISON: None available. TECHNIQUE: Two views of the right hip. FINDINGS: There is a loss of right hip joint space with subchondral cystic changes and periarticular spurring. No visible acute fracture, dislocation or subluxation seen. The soft tissues are normal. XR/XR hip RT min 2V IMPRESSION: Severe degenerative changes right hip. No visible acute fracture or dislocation seen.
[2023-03-17 16:07] LABS: MANUAL DIFF FLAG NO
[2023-03-17 16:16] LABS: Basophils Absolute Auto 0.1 X10*3/uL (0.0-0.2); Eosinophils Absolute Auto 0.2 X10*3/uL (0.0-0.4); Eosinophils Percent Auto 2.6 % (0-4); Hematocrit 42.6 % (37.0-47.0); Hemoglobin 13.8 g/dl (12.0-16.0); Imm Gran Abs Auto 0.03 X10*3/uL (0.00-0.03); Imm Gran Pct Auto 0.4 % (0.0-0.4); Lymphocytes Absolute Auto 1.6 X10*3/uL (1.2-4.9); Lymphocytes Percent Auto 20.9 % (20-40); Mean Corpuscular HGB Conc 32.4 g/dl (31.0-35.0); Mean Corpuscular Hemoglobin 30.9 pg (27.0-33.0); Mean Corpuscular Volume 95.5 fL (80.0-98.0); Mean Platelet Volume 10.7 fL (9.4-12.3); Monocytes Absolute Auto 0.6 X10*3/uL (0.1-1.2); Monocytes Percent Auto 8.2 % (2-11); Neutrophils Absolute Auto 5.3 x10*3/uL (2.0-8.3); Neutrophils Percent Auto 66.9 % (45-73); Platelet Count 341 X10*3/uL (160-400); Red Blood Count 4.46 X10*6/uL (4.20-5.50); Red Cell Distribution Width 11.9 % (11.0-16.0); White Blood Count 7.8 X10*3/uL (4.8-10.8)
[2023-03-17 16:25] LABS: Estimated Average Glucose 117 mg/dL; Hemoglobin A1c % 5.7 % (<6.0)
[2023-03-17 17:00] LABS: Alanine Aminotransferase 15 U/L (0-31); Albumin Level 4.1 g/dL (3.5-5.0); Alkaline Phosphatase 90 U/L (39-117); Anion Gap 14 (12-20); Aspartate Amino Transferase 14 U/L (5-31); Bilirubin Total 0.5 mg/dL (0.0-1.0); Blood Urea Nitrogen 24 mg/dL (9-16); Calcium 9.5 mg/dL (8.4-10.2); Carbon Dioxide 25 mmol/L (22-29); Chloride 107 mmol/L (96-108); Estimated Glomerular Filt Rate > 60; Glucose Random 106 mg/dL (60-115); Potassium 4.2 mmol/L (3.3-5.1); Sodium 142 mmol/L (135-145); Total Protein 7.8 g/dL (6.5-8.0)
== END 2023-03-17 14:52 | disposition home or self-care (01) ==
LOC: HO.HMGCX 14:51
PROVIDERS: PCP Internal Medicine; Referring Provider Internal Medicine; Visit Provider Physician Assistant
DX: D64.9 Anemia, unspecified (principal); R73.01 Impaired fasting glucose; I10 Essential (primary) hypertension; E78.9 Disorder of lipoprotein metabolism, unspecified; E66.01 Morbid (severe) obesity due to excess calories; M25.551 Pain in right hip; M54.16 Radiculopathy, lumbar region
CPT/HCPCS: 36415; 73502; 80053; 83036; 85025

== ENCOUNTER 2023-04-20 06:17 | Outpatient (REF) | payer OTHER, SELFPAY ==
--- NOTE | ~2023-04-20 | FL_ITS ---
INDICATION: Intraoperative fluoroscopy. FLUOROSCOPY: Fluoroscopy Time: 0.2 minutes Dose/air kerma: 8.58 mGy Images saved: 3 FINDINGS: Multiple intraoperative fluoroscopic images are submitted during right L5 injection. Correlation with operative report. Evaluation is limited secondary to fluoroscopic technique. IMPRESSION: Intra-operative fluoroscopic imaging provided by radiology during right L5 injection. Please refer to operative note for further information.
== END 2023-04-20 06:18 | disposition home or self-care (01) ==
LOC: CF 06:17
PROVIDERS: Visit Provider Anesthesiology
DX: M54.16 Radiculopathy, lumbar region (principal); M16.11 Unilateral primary osteoarthritis, right hip
CPT/HCPCS: 64483; J1100; J3301; Q9967

== ENCOUNTER 2023-04-20 13:37 | Outpatient (AMB) | payer OTHER, SELFPAY ==
[2023-04-20 13:43] VITALS: BP 140/88; PULSE 64; RESP 16; O2SAT 98; BMI 43.8
--- NOTE | 2023-04-20 13:43 | A.OFFVIS_ITS ---
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 Brother No problems noted. Social History Household Members: None Housing: Apartment Do you presently have visiting nurse or other home services: No Alcohol intake: current Alcohol intake frequency: holidays/special occasions only Patient Tobacco Use Status: Never used Tobacco e-Cigarette/Vaping Use: Never Used service: No Current occupational status: disabled Current occupation: Rt handed Cognitive needs: No Hearing needs: No Vision needs: No Physical Exam Vital Signs: Last Vital Signs Pulse 64 04/20/23 13:43 Resp 16 04/20/23 13:43 BP 140/88 H 04/20/23 13:43 Pulse Ox 98 04/20/23 13:43 Oxygen Delivery Method Room Air 04/20/23 13:43 BMI result Body Mass Index 43.8 Assessment & Plan Assessment & Plan (1) Unilateral primary osteoarthritis, right hip: Code(s): M16.11 - Unilateral primary osteoarthritis, right hip Plan: Patient was examined today, she denies radiation of the pain on the right in typical distribution of L5 nerve root. Her pain starts in the back and radiates into the groin. She also exhibits signs of right hip joint pathology on physical exam: The lateral rotation and medial rotation both aggravate her pain in the groin lateral more than medial. It corresponds to the very severe right hip pathology demonstrated on x-ray with subchondral cysts osteophytes and multiple ulcerations on the surface of the head as well as almost complete absence of intra-articular space. For diagnostic purpose I performed the procedure on the patient as below. However I am firmly convince today that at least some of her pain is coming from this severe degeneration of the right hip joint. I will refer this patient to Dr. Brownlee for evaluation however I told the patient that Dr. Brownlee as her surgeon can see her without my referral as well. (2) Right lumbar radiculitis: Code(s): M54.16 - Radiculopathy, lumbar region Plan: Transforaminal epidural steroid injection L5-S1 on the right Informed consent was thoroughly explained to the patient before the procedure.? The patient came to the operating room.? He was positioned prone on operating table with a pillow under his abdomen.? Time-out was performed delineating correct site and side of the procedure, nature of the injection, name and date of of the patient. The lower back of the patient was prepped with ChloraPrep and draped with sterile utility towels.? C-arm was brought over the operating field and sq picture of L5 vertebra were demonstrated on the screen.? The right side was chosen as the side of the injection.? Tilting machine ipsilateral to the right at the level of L5 1st the most prominent picture of the right L5 pedicle was obtained on the screen.? 3 mm below the level of the lowest point of the pedicle projection to the skin small amount of lidocaine 1% 3-4 cc was injected to anesthetize the skin.? After that 7 in 22 gauge Quincke point needle was inserted through the skin wheal and was advanced to were the L5-S1 foramina on anterior posterior , lateral and oblique views intermittently.? When tip of the needle entered foramina projection on AP view injection of the contrast was performed demonstrating epidural and perineural spread of the contrast.? On the lateral view contrast was spread in the epidural fashion. After that injection of the treatment medicine 4 cc of lidocaine 1% mixed with dexamethasone 10 mg was injected into the foramina.? No intrathecal and no intravascular spread of the contrast was noted. Upon completion of the procedure sterile Band-Aids were applied. Patient tolerated procedure well he was taken outside of the operating room where he recovered uneventfully.? She went home without immediate complications. Plan Orders: Orders FL guidance in treatment room Today M54.16 - Radiculopathy, lumbar region [address] Referrals Orthopedics Referral M16.11 - Unilateral primary osteoarthritis, right hip Presley Freeman MD Coding Level of Care Code Procedure Only Diagnoses Unilateral primary osteoarthritis, right hip M16.11 Right lumbar radiculitis M54.16
[2023-04-20 14:45] VITALS: BP 160/80; PULSE 78; RESP 16; O2SAT 98; BMI 43.8
== END 2023-04-20 14:40 | disposition home or self-care (01) ==
LOC: HO.PMCPRC 13:37
PROVIDERS: PCP Internal Medicine; Visit Provider Anesthesiology
DX: M54.16 Radiculopathy, lumbar region (principal)
CPT/HCPCS: 64483

== ENCOUNTER 2023-05-03 07:35 | Outpatient (REF) | payer OTHER, SELFPAY ==
--- NOTE | ~2023-05-03 | XR_ITS ---
EXAMINATION: XR PELVIS CLINICAL INFORMATION: Pain. COMPARISON: Prior examinations, most recently right hip radiographs dated 03/17/2023. TECHNIQUE: AP view of the pelvis. FINDINGS: There is bony demineralization. There is marked degenerative change of the right hip, with severe joint space narrowing, subchondral cyst formation and peripheral osteophyte formation. There is flattening of the right femoral head, suggesting avascular necrosis. The left acetabular joint space shows mild narrowing, and there is subchondral sclerosis of the left acetabular roof. The left femoral head is smooth. No acute fracture or dislocation is seen. There are multiple pelvic phleboliths. XR/XR pelvis 1-2V IMPRESSION: 1. 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 This appearance has progressed from 01/27/2021. 2. There is mild osteoarthritic change of the left hip.
== END 2023-05-03 07:36 | disposition home or self-care (01) ==
LOC: HO.HOSX 07:35
PROVIDERS: Visit Provider Orthopaedic Surgery
DX: M16.11 Unilateral primary osteoarthritis, right hip (principal)
CPT/HCPCS: 72170; 99212

== ENCOUNTER 2023-05-03 11:17 | Outpatient (AMB) | payer OTHER, SELFPAY ==
--- NOTE | 2023-05-03 11:26 | A.OFFVIS_ITS ---
Intake Vital Signs 05/03/23 11:27 Height 5 ft 4 in Weight 255 lb BMI 43.8 Intake Visit Reasons: Newprob- Unilateral primary osteoarthritis, RT hip Intake Note: Suzi Bird is a 62 year old female who presents today for a new problem visit with complaints of right hip pain. Patient rpeorts that she has had ongoing pain for quite some time now, her pain decreases with acitivty. She was previously seen with pain management who preformed a Transforaminal epidural steroid injection L5-S1 on the right, but was referred to Ortho for discussion of possible CAITLIN. Hx of LT TKA 10/14/21 Allergies latex Allergy (Intermediate, Verified 04/20/23 13:45) Rash celecoxib [From Celebrex] Adverse Reaction (Unknown, Verified 04/20/23 13:45) body rash HPI Newprob- Unilateral primary osteoarthritis, RT hip HPI Details Suzi Bird is a 62 year old female who presents today for a new problem visit with complaints of right hip pain. Patient rpeorts that she has had ongoing pain for quite some time now, her pain decreases with acitivty. She was previously seen with pain management who preformed a Transforaminal epidural steroid injection L5-S1 on the right, but was referred to Ortho for discussion of possible CAITLIN. Hx of LT TKA 10/14/21 Suzi is currently unable to ambulate normally. She is flexed at the waist and has difficulty standing from a seated position getting into and out of a car, chair or ascending/descending stairs. The pain is unbearable at times. Quality of her life is severely diminished. [facility] Medical History History of cardiac murmur as a child History of seizure Osteoarthritis of left knee Lumbar disc herniation Arthritis Glaucoma Morbid obesity Hyperlipidemia Hypertension Surgical History Total knee replacement status Hx of colonoscopy History of ankle surgery H/O brain surgery Hx of hysterectomy Family History Father Dementia Cancer Mother Ovarian cancer Brother No problems noted. Brother No problems noted. Social History Household Members: None Housing: Apartment Do you presently have visiting nurse or other home services: No Alcohol intake: current Alcohol intake frequency: holidays/special occasions only Patient Tobacco Use Status: Never used Tobacco e-Cigarette/Vaping Use: Never Used service: No Current occupational status: disabled Current occupation: Rt handed Cognitive needs: No Hearing needs: No Vision needs: No Physical Exam Vital Signs: BMI result Body Mass Index 43.8 Const General: cooperative, healthy appearing, no acute distress, well developed and alert HEENT Head: Yes normal to inspection, Yes normocephalic and Yes atraumatic Mouth: moist mucous membranes Eyes General: appearance normal, both eyes and all related structures EOM: EOMs intact bilaterally Chest Other: no audible wheezing. Resp Other: No audible wheezing Effort & Inspection: normal respiratory effort Back/Spine/Pelvis Cervical Spine: normal cervical lordosis Skin General skin exam: no rashes or lesions noted Neuro General: no focal motor deficits Extrem Other: Minimal to no rotation of her right hip while flexed. She walks with severe antalgia. Psych Appearance: grossly normal and well kempt Mental Status: mental status grossly normal Speech and movement: Normal speech and movement present Affect: normal affect Attitude: cooperative Results Reviewed Results Reviewed: I personally reviewed relevant radiographs. Severe right hip osteoarthritis with femoral head collapse. Assessment & Plan Assessment & Plan (1) Unilateral primary osteoarthritis, right hip: Code(s): M16.11 - Unilateral primary osteoarthritis, right hip Plan: Suzi Bird is a 62-year-old woman with severe osteoarthritis of the right hip. She can not function much less engage in meaningful daily activities. I recommend hip arthroplasty. She is having difficulty getting up from seated position and I have ordered her a lift recliner. We will have her see our nurse navigator and initiate her preoperative clearance process. I discussed this with her. I explained the risks, benefits and alternatives including, but not limited to, infection, dislocation, pain, need for further surgery as well as medical complications associated with surgery. She expressed understanding and we will proceed forward accordingly. Orders: Orders XR pelvis 1-2V 05/03/23 M25.559 - Pain in unspecified hip Coding Level of Care Code Est Pt Level 4 (37166) Diagnoses Unilateral primary osteoarthritis, right hip M16.11
[2023-05-03 11:27] VITALS: BMI 43.8
== END 2023-05-03 11:57 | disposition home or self-care (01) ==
PROVIDERS: PCP Internal Medicine; Visit Provider Orthopaedic Surgery
DX: M16.11 Unilateral primary osteoarthritis, right hip (principal)
CPT/HCPCS: 99214

== ENCOUNTER → 2023-06-18 13:48 | Outpatient (BNV) | payer OTHER, SELFPAY | PROVIDERS: Admitting Provider Orthopaedic Surgery; PCP Internal Medicine; Visit Provider Internal Medicine | DX: R94.31 Abnormal electrocardiogram [ECG] [EKG] (principal) | CPT/HCPCS: 93010 ==

== ENCOUNTER 2023-06-22 13:05 | Outpatient (AMB) | payer OTHER, SELFPAY ==
[2023-06-22 13:12] VITALS: BP 156/84; PULSE 72; O2SAT 94; BMI 44.5
--- NOTE | 2023-06-22 13:12 | MHC.PC.OV ---
Vital Signs 06/22/23 13:12 Height 5 ft 4 in Weight 259 lb BMI 44.5 BP 156/84 H Blood Pressure Location Rt brachial Position Sitting Pulse 72 Pulse Source Pulse Oximeter Pulse Oximetry (%) 94 Oxygen Delivery Method Room Air Intake Visit Reasons: Rt Total Hip Arthroplasty~ Allergies adhesive tape Allergy (Severe, Verified 06/22/23 13:14) Rash latex Allergy (Severe, Verified 06/22/23 13:14) Rash celecoxib [From Celebrex] Adverse Reaction (Severe, Verified 06/22/23 13:14) body rash Medication List - Last Reconciled 06/22/23 by Luna Marino MD acetaminophen 650 mg (2 x 325 mg) PO Q6H PRN 42 days cholecalciferol (vitamin D3) (Vitamin D3) 25 mcg PO DAILY cyanocobalamin (vitamin B-12) (Vitamin B-12) 1,000 mcg PO 3XW latanoprost 0.005% 1 drp ophthalmic-Left BEDTIME [Lift recliner As directed] lisinopril 40 mg PO DAILY 90 days miscellaneous medical supply 1 ea miscellaneous ONCE [Rollator walker As directed] Shower Chair As directed simvastatin 20 mg PO BEDTIME timolol maleate 0.5% 1 drp ophthalmic (eye) DAILY tizanidine 2 mg PO BID PRN Tobacco use date assessed: 06/22/23 Dental Screening Dental Screen Date: 06/22/23 Did you have a dental visit in the last 12 months?: No Did you have a dental problem in the last 6 months where you did not have access to dental care?: No Was dental information given to patient?: Patient has dentist HPI Rt Total Hip Arthroplasty~ HPI Details 62-year-old female who is going in for right total hip arthroplasty at [facility] Labs done recently reviewed, there is no anemia kidney functions intact EKG was done which showed Normal sinus rhythm Nonspecific ST abnormality Abnormal ECG When compared with ECG of 11-OCT-2017 15:14, No significant changes seen Blood pressure continued to be elevated it was checked 3rd of this month and it was 151 systolic and today it is 156 systolic Patient is on 20 mg of lisinopril, I am increasing that to 40 mg Patient is stable for right hip arthroplasty REPLACED BY [facility] Medical History History of cardiac murmur as a child History of seizure Osteoarthritis of left knee Lumbar disc herniation Arthritis Glaucoma Morbid obesity Hyperlipidemia Hypertension Surgical History History of left knee replacement (~2021) Total knee replacement status Hx of colonoscopy History of ankle surgery H/O brain surgery Hx of hysterectomy Family History Father Dementia Cancer Mother Ovarian cancer Brother No problems noted. Brother No problems noted. 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 How often do you have a drink containing alcohol?: Never 3. How often do you have six or more drinks on one occasion?: Never Total Score: 0 Score Reviewed/Action Taken: Yes BONG-7 AMB Questionnaire BONG-7 Date BONG - 7 assessed: 05/27/22 Source: Developed by Drs. Manolo Hastings, Veronica Romo, Ferny Ma and colleagues, with an educational presley from [employer]. Review of Systems Const Denies chills and Denies fever(s) ENT Denies epistaxis and Denies nasal discharge Card Denies chest pain Resp Denies chest congestion, Denies cough and Denies hemoptysis GI Denies diarrhea and Denies nausea Skin/Breast Denies rash Neuro Reports no additional complaints Psych Reports no additional complaints Endo Reports no additional complaints Physical exam (Primary Care) Vital Signs: Last Vital Signs Pulse 72 06/22/23 13:12 BP 156/84 H 06/22/23 13:12 Pulse Ox 94 06/22/23 13:12 Oxygen Delivery Method Room Air 06/22/23 13:12 BMI result Body Mass Index 44.5 Tobacco/Smoking Status: Tobacco use Status Tobacco use date assessed 06/22/23 06/22/23 13:14 Patient Tobacco Use Status Never used Tobacco 06/22/23 13:14 e-Cigarette/Vaping Use Never Used 06/22/23 13:14 Thrive Assessment: Date of Thrive Assessment Date Thrive assessed 01/22/21 06/22/23 13:14 Const General: cooperative, comfortable and no acute distress Orientation/consciousness: patient oriented x3 HENMT Head: Yes normocephalic Eyes General: appearance normal, both eyes and all related structures Neck Neck: Yes supple Resp Effort & Inspection: normal respiratory effort, no cough and no stridor Cardio Rhythm: regular rhythm Heart sounds: S1 normal heart sound present and S2 normal heart sound present Skin General skin exam: turgor normal Neuro General: patient oriented x3, tone normal and moves all extremities Assessment and Plan Assessment & Plan (1) Pre-op evaluation: Code(s): Z01.818 - Encounter for other preprocedural examination (2) Osteoarthritis of right hip: Code(s): M16.11 - Unilateral primary osteoarthritis, right hip Qualifiers: Osteoarthritis type: primary Qualified Code(s): M16.11 - Unilateral primary osteoarthritis, right hip (3) Uncontrolled hypertension: Code(s): I10 - Essential (primary) hypertension Plan 62-year-old female who is going in for right total hip arthroplasty at [facility] Labs done recently reviewed, there is no anemia kidney functions intact EKG was done which showed Normal sinus rhythm Nonspecific ST abnormality Abnormal ECG When compared with ECG of 11-OCT-2017 15:14, No significant changes seen Blood pressure continued to be elevated it was checked 3rd of this month and it was 151 systolic and today it is 156 systolic Patient is on 20 mg of lisinopril, I am increasing that to 40 mg Patient is stable for right hip arthroplasty Medications: Changed From lisinopril 20 mg PO DAILY 90 days 90 tabs 1RF To lisinopril 40 mg PO DAILY 90 tabs 1RF 90 days Coding Level of Care Code Est Pt Level 4 (93619) Diagnoses Pre-op evaluation Z01.818 Primary osteoarthritis of right hip M16.11 Osteoarthritis type: primary Uncontrolled hypertension I10
== END 2023-06-22 14:31 | disposition home or self-care (01) ==
PROVIDERS: PCP Internal Medicine; Visit Provider Internal Medicine
DX: Z01.818 Encounter for other preprocedural examination (principal); M16.11 Unilateral primary osteoarthritis, right hip; I10 Essential (primary) hypertension
CPT/HCPCS: 99214

== ENCOUNTER 2023-06-24 09:23 | Outpatient (REF) | payer OTHER, SELFPAY ==
--- NOTE | ~2023-06-24 | XR_ITS ---
EXAMINATION: XR RIGHT HIP XR PELVIS CLINICAL INFORMATION: s/p RTHA increased pain after movement in bed COMPARISON: 06/29/2023 TECHNIQUE: AP view of the pelvis and a frog-leg lateral view of the right hip were obtained. FINDINGS: Prosthetic components of the right total hip arthroplasty are appropriately aligned without periprosthetic fracture. Mild osteoarthritis the left hip and SI joints. Degenerative spondylosis in the lower lumbar spine. No acute soft tissue findings. XR/XR hip RT min 2V IMPRESSION: Appropriate alignment of the right total hip arthroplasty without evidence of complications.
== END 2023-06-24 09:24 | disposition home or self-care (01) ==
LOC: HO.HOSX 09:23
PROVIDERS: Visit Provider Physician Assistant
DX: M16.11 Unilateral primary osteoarthritis, right hip (principal)
CPT/HCPCS: 73502; 99212

== ENCOUNTER 2023-06-24 13:27 | Outpatient (AMB) | payer OTHER, SELFPAY ==
--- NOTE | 2023-06-24 13:55 | A.OFFVIS_ITS ---
Vital Signs 06/24/23 13:58 Height 5 ft 4 in Weight 259 lb BMI 44.5 Intake Visit Reasons: R CAITLIN 06/29/23 w/NE Intake Note: Suzi Bird a 62 year old female who presents today for a preoperative right CAITLIN, DOS 06/29/23. Pain management agreement reviewed and signed. Allergies adhesive tape Allergy (Severe, Verified 06/24/23 13:58) Rash latex Allergy (Severe, Verified 06/24/23 13:58) Rash celecoxib [From Celebrex] Adverse Reaction (Severe, Verified 06/24/23 13:58) body rash Medication List - Last Reconciled 06/24/23 by Barbara Marin PA-C acetaminophen 650 mg (2 x 325 mg) PO Q6H PRN 42 days cholecalciferol (vitamin D3) (Vitamin D3) 25 mcg PO DAILY cyanocobalamin (vitamin B-12) (Vitamin B-12) 1,000 mcg PO 3XW latanoprost 0.005% 1 drp ophthalmic-Left BEDTIME [Lift recliner As directed] lisinopril 40 mg PO DAILY 90 days miscellaneous medical supply 1 ea miscellaneous ONCE [Rollator walker As directed] Shower Chair As directed simvastatin 20 mg PO BEDTIME timolol maleate 0.5% 1 drp ophthalmic (eye) DAILY tizanidine 2 mg PO BID PRN HPI Comments Details: Ms Moralez presents to the office today for preop visit. She is scheduled for right total hip arthroplasty with Dr. Brownlee. She continues to have ongoing pain and difficulty with ambulation in the right hip, which is affecting her quality of life; therefore, she has elected to move forward with surgery. [facility] Medical History History of cardiac murmur as a child History of seizure Osteoarthritis of left knee Lumbar disc herniation Arthritis Glaucoma Morbid obesity Hyperlipidemia Hypertension Surgical History History of left knee replacement (~2021) Total knee replacement status Hx of colonoscopy History of ankle surgery H/O brain surgery Hx of hysterectomy Family History Father Dementia Cancer Mother Ovarian cancer Brother No problems noted. Brother No problems noted. Social History Household Members: None Housing: Apartment Are you a primary family member caretaker to a significant other at home: No Do you presently have visiting nurse or other home services: Yes (RECORD SEARCHER 15 hours/week) Alcohol intake: current Alcohol intake frequency: holidays/special occasions only Patient Tobacco Use Status: Never used Tobacco e-Cigarette/Vaping Use: Never Used Use of substances other than those prescribed or required for medical reasons: No service: No Current occupational status: disabled Current occupation: Rt handed Cognitive needs: No Hearing needs: No Vision needs: No Review of Systems Const All systems reviewed & are unremarkable except as noted in HPI and below Physical Exam Vital Signs: BMI result Body Mass Index 44.5 Const General: cooperative and no acute distress Orientation/consciousness: patient oriented x3 HEENT Head: Yes normal to inspection, Yes normocephalic and Yes atraumatic Eyes General: appearance normal, both eyes and all related structures Neck Neck: Yes normal visual inspection and Yes no lymphadenopathy Resp Effort & Inspection: normal respiratory effort and able to speak in complete sentences Cardio Rate: regular rate Peripheral pulses: Peripheral pulses 2+ throughout GI Inspection: Yes normal to inspection Palpation (GI): Soft to palpation Skin General skin exam: no rashes or lesions noted Neuro General: patient oriented x3 Extrem Other: Right hip: Skin is intact. No open wound or abrasion. She has pain with ROM of hip and hip flexion. NVI. Psych Appearance: grossly normal Mental Status: mental status grossly normal Assessment & Plan Assessment & Plan (1) Unilateral primary osteoarthritis, right hip: Code(s): M16.11 - Unilateral primary osteoarthritis, right hip Category: Medical Plan I discussed in detail the procedure and what to expect pre and post operatively. We discussed the risks, benefits and alternatives to the surgery as well as the rehabilitation course. The risks; which include, but are not limited to infection, bleeding, nerve injury, ongoing pain, swelling, and stiffness, perioperative risk of injury to bones and soft tissues, and blood clots. I?ve answered all questions and with their understanding they have consented to move forward with Right total hip arthroplasty with Dr. Brownlee Unable to take celebrex and asa-->will submit for eliquis h/o ovarian cancer Orders: Orders XR hip RT min 2V 06/24/23 M25.551 - Pain in right hip Medications: New [toilet seat riser] As directed 1 0 M16.11 - Unilateral primary osteoarthritis, right hip Patient Instructions: Scribed for Barbara Marin PA-C, by Wilver Brown clinical laboratory medical director, on 06/24/2023 at 1:30 PM YANDY. Barbara Goldman PA-C, have personally reviewed and agree with the information entered by the scribe. Coding Level of Care Code Est Pt Level 3 (79857) Diagnoses Unilateral primary osteoarthritis, right hip M16.11
[2023-06-24 13:58] VITALS: BMI 44.5
== END 2023-06-24 14:13 | disposition home or self-care (01) ==
PROVIDERS: PCP Internal Medicine; Visit Provider Physician Assistant
DX: M16.11 Unilateral primary osteoarthritis, right hip (principal)
CPT/HCPCS: 99024

== ENCOUNTER 2023-06-29 06:39 | Inpatient (IN) | payer OTHER, SELFPAY ==
--- NOTE | 2023-06-18 | ECG_ITS ---
Test Reason : PREOP Blood Pressure : / mmHG Vent. Rate : 070 BPM Atrial Rate : 070 BPM P-R Int : 152 ms QRS Dur : 094 ms QT Int : 412 ms P-R-T Axes : 025 022 028 degrees QTc Int : 444 ms Normal sinus rhythm Nonspecific ST abnormality Abnormal ECG When compared with ECG of 11-OCT-2017 15:14, No significant changes seen Referred By: Antoinette Samaniego Electronically Signed By:LUANA CUEVAS
[2023-06-18 13:01] VITALS: BP 151/81; PULSE 65; RESP 6; O2SAT 96; BMI 43.8
--- NOTE | 2023-06-18 13:18 | HO.ANESPROP2 ---
Documented by User: Antoinette Samaniego NP 06/18/23 13:24 HPI - Anesthesia Eval Consult details Narrative: 62yo F for Right Hip Total Replacement s/p TKA 2021 with spinal/block - no anesthesia issues No recent illness No CP/SOB with limited activity PMFSH Active Problems Active Problems: All Active Problems Unilateral primary osteoarthritis, right hip (Acute) Epidural lipomatosis (Acute) Right leg weakness (Acute) Sacroiliac dysfunction (Acute) Sacro-iliac pain (Acute) Facet arthritis of lumbar region (Acute) Right lumbar radiculitis (Acute) Anemia (Acute) Impaired fasting blood sugar (Acute) Status post total knee replacement, left (Acute) Pre-op evaluation (Acute) Knee pain, left (Acute) Osteoarthritis of right hip (Acute) Elevated TSH (Acute) Hip pain, right (Acute) Lipid disorder (Acute) Vitamin D deficiency (Acute) Elevated blood pressure, situational (Acute) Encounter for general adult medical examination with abnormal findings (Acute) Vitamin D deficiency (Acute) Hypertension, essential (Acute) Arthritis (Acute) Glaucoma (Acute) Morbid obesity (Acute) Past Medical History Medical History History of cardiac murmur as a child History of seizure Osteoarthritis of left knee Lumbar disc herniation Arthritis Glaucoma Morbid obesity Hyperlipidemia Hypertension Family History Family History Father Dementia Cancer Mother Ovarian cancer Brother No problems noted. Brother No problems noted. 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 If so, by whom?: No Are you DNR?: No Advance Directives: No Advance Directives on File: No Recently lost weight without trying: No Poor oral hygiene: No service: No Current occupational status: disabled Current occupation: Rt handed Cognitive needs: No Hearing needs: No Vision needs: No Meds Allergies Allergy/AdvReac Type Severity Reaction Status Date / Time adhesive tape Allergy Severe Rash Verified 06/29/23 06:51 latex Allergy Severe Rash Verified 06/29/23 06:51 celecoxib [From Celebrex] AdvReac Severe body rash Verified 06/29/23 06:51 Home Medications ?Medication ?Instructions ?Recorded ?Confirmed ?Last Taken ?Type latanoprost 0.005 % eye drops 1 drp ophthalmic-Left BEDTIME 12/07/19 06/29/23 06/28/23 History timolol maleate 0.5 % eye gel 1 drp ophthalmic (eye) DAILY 01/12/22 06/29/23 06/28/23 History forming solution cyanocobalamin (vitamin B-12) 1,000 mcg PO 3XW 06/18/23 06/29/23 06/22/23 History 1,000 mcg tablet (Vitamin B-12) Exam Height,Weight and Vital Signs: Height 5 ft 4 in Weight 115.666 kg Last Vital Signs Pulse 65 06/18/23 13:01 Resp 6 L 06/18/23 13:01 BP 151/81 H 06/18/23 13:01 Pulse Ox 96 06/18/23 13:01 O2 Del Method Room Air 06/18/23 13:01 Airway Mallampati Class: II TM Dist: >3cm Neck ROM: Full Loose/Missing/Broken Teeth: No Heart: RRR Lungs: CTAB Assessment and Plan Assessment Anesthesia Assessment: Anesthesia Plan Discussed and PAT Visit Final Anesthetic Review Family History of Problems with Anesthesia: No History of Problems with Anesthesia: No Documented by User: Rose Jason MD 06/29/23 08:06 [facility] Past Medical History Medical History History of cardiac murmur as a child History of seizure Osteoarthritis of left knee Lumbar disc herniation Arthritis Glaucoma Morbid obesity Hyperlipidemia Hypertension Family History Family History Father Dementia Cancer Mother Ovarian cancer Brother No problems noted. Brother No problems noted. 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 If so, by whom?: No Are you DNR?: No Advance Directives: No Advance Directives on File: No Recently lost weight without trying: No Poor oral hygiene: No service: No Current occupational status: disabled Current occupation: Rt handed Cognitive needs: No Hearing needs: No Vision needs: No Meds Allergies Allergy/AdvReac Type Severity Reaction Status Date / Time adhesive tape Allergy Severe Rash Verified 06/29/23 06:51 latex Allergy Severe Rash Verified 06/29/23 06:51 celecoxib [From Celebrex] AdvReac Severe body rash Verified 06/29/23 06:51 Home Medications ?Medication ?Instructions ?Recorded ?Confirmed ?Last Taken ?Type latanoprost 0.005 % eye drops 1 drp ophthalmic-Left BEDTIME 12/07/19 06/29/23 06/28/23 History timolol maleate 0.5 % eye gel 1 drp ophthalmic (eye) DAILY 01/12/22 06/29/23 06/28/23 History forming solution cyanocobalamin (vitamin B-12) 1,000 mcg PO 3XW 06/18/23 06/29/23 06/22/23 History 1,000 mcg tablet (Vitamin B-12) Assessment and Plan Assessment Anesthesia Assessment: Chart Reviewed Final Anesthetic Review NPO: Yes ASA Class: III Final Preanesthetic Review: No Changes in Pt Med Stat, Meds/Allgs Chart Reviewed, Consent Obtained/Reviewed and Anes Risks/Benef Reviewed Patient Risk: Intermediate Procedure Risk: Intermediate Anesthetic Plan Anesthetic Plan: GA Disposition: Standard PACU
[2023-06-18 13:52] LABS: Hematocrit 41.8 % (37.0-47.0); Hemoglobin 13.8 g/dl (12.0-16.0); Mean Corpuscular Hemoglobin 31.6 pg (27.0-33.0); Mean Corpuscular Volume 95.7 fL (80.0-98.0); Mean Platelet Volume 9.9 fL (9.4-12.3); Platelet Count 270 X10*3/uL (160-400); Red Blood Count 4.37 X10*6/uL (4.20-5.50); Red Cell Distribution Width 12.7 % (11.0-16.0)
[2023-06-18 14:06] LABS: Anion Gap 13 (12-20); Blood Urea Nitrogen 22 mg/dL (9-16); Calcium 9.7 mg/dL (8.4-10.2); Carbon Dioxide 24 mmol/L (22-29); Chloride 109 mmol/L (96-108); Creatinine Clr Calc Pharmacy 88.8; Estimated Glomerular Filt Rate > 60; Glucose Random 98 mg/dL (60-115); Potassium 4.6 mmol/L (3.3-5.1); Sodium 141 mmol/L (135-145)
[2023-06-18 15:09] LABS: MRSA Nasal PCR NEGATIVE (Negative); SA Nasal PCR NEGATIVE (Negative)
[2023-06-29] VITALS (18 sets, daily range): BP systolic 96–159; BP diastolic 53–91; PULSE 54–86; RESP 14–18; TEMP 36.4–36.8; O2SAT 92–98
--- NOTE | ~2023-06-29 | XR_ITS ---
EXAMINATION: XR PELVIS CLINICAL INFORMATION: Right total hip arthroplasty. COMPARISON: None available. TECHNIQUE: AP view of the pelvis. FINDINGS: There is bony demineralization. Prosthetic components of the right total hip arthroplasty are appropriately aligned. No periprosthetic fracture. The left acetabular joint space is well-maintained. The sacroiliac joints are symmetric and well-maintained, and the pubic symphysis is intact. There are pelvic phleboliths. XR/XR pelvis 1-2V IMPRESSION: There is an intact right hip total arthroplasty, without hardware failure, loosening or periprosthetic fracture noted.
--- NOTE | ~2023-06-29 | XR_ITS ---
EXAMINATION: XR RIGHT HIP XR PELVIS CLINICAL INFORMATION: s/p RTHA increased pain after movement in bed COMPARISON: 06/29/2023 TECHNIQUE: AP view of the pelvis and a frog-leg lateral view of the right hip were obtained. FINDINGS: Prosthetic components of the right total hip arthroplasty are appropriately aligned without periprosthetic fracture. Mild osteoarthritis the left hip and SI joints. Degenerative spondylosis in the lower lumbar spine. No acute soft tissue findings. XR/XR pelvis 1-2V IMPRESSION: Appropriate alignment of the right total hip arthroplasty without evidence of complications.
[2023-06-29] MEDS: oxyCODONE HCl ER 10 MG TAB.ER.12H PO ×2 (07:13→22:44)
--- NOTE | 2023-06-29 07:24 | MHC.SHP ---
Pre-Procedural Eval Section A - 24 Hr Update-Section A only Date of Service: 06/29/23 The patient is an INPATIENT: No Changes since office visit: No Cold of Flu in the past 2 weeks, No New Medical Problems, No Changes in Medication and No Patient answered all questions The patient has been examined within 24 hours of the surgical procedure. The History & Physical has been completed within 30 days and I have reviewed it.: Yes Section B - Complete if H&P > 30 days Chief Complaint: RT CAITLIN Allergies: Allergies Allergy/AdvReac Type Severity Reaction Status Date / Time adhesive tape Allergy Severe Rash Verified 06/29/23 06:51 latex Allergy Severe Rash Verified 06/29/23 06:51 celecoxib [From Celebrex] AdvReac Severe body rash Verified 06/29/23 06:51 Plan I have reviewed the history and physical and performed a pertinent physical examination on my patient. No changes have occurred unless specified. Time Spent With Patient Time: Total time managing care of this patient today ____ minutes.
[2023-06-29] MEDS: Lactated Ringers 1,000 ML 100 ML IVCONT ×2 (07:28→17:02)
--- NOTE | 2023-06-29 09:40 | W.MHC.F2F ---
Service Date Service Date: 06/29/23 Encounter Date of encounter: 07/01/23 Reasons for Services Signs and symptoms assessed: s/p RTHA Pt. is considered homebound due to recent surgery. Unable to drive, poor balance, poor gait mechanics. Reason for physical therapy: home safety and mobility, therapeutic exercises, restore joint function, gait/transfer training, assess need for DME and ADL training Reason for occupational therapy: home safety and mobility, therapeutic exercises, restore joint function, gait/transfer training, assess need for DME and ADL training Homebound: Leaving the home is medically contraindicated at this time without the asist of a device and/or another person due th the listed conditions above and below. Reason homebound: unsteady gait / fall risk, leg weakness, pain with ambulation, poor balance / fall risk and unable to drive Certification: Based on the above findings, I certify that this patient is confined to the home and needs intermittent nursing home care, physical therapy and/or speech therapy, or continues to need occupational therapy. The patient is under my care, and I have initiated the establishment of the plan of care. The patient will be followed by a physician who will periodically review the plan of care. Time Spent With Patient Time: Total time managing care of this patient today ____ minutes.
--- NOTE | 2023-06-29 09:41 | P.DS_ITS ---
DS: Providers Provider Date of Service: 07/01/23 Date of admission: 06/29/23 06:39 Primary care physician: Luna Marino MD DS: Summary Hospital Course Hospital Course: The patient underwent a successful right total hip arthroplasty, they were transferred to PACU and then to the floor to recover. During their stay, their vitals were stable, afebrile at 98.5. Labs were unremarkable, H/H 8.3/24.7 asymptomatic, denying CP, palpitations, lightheadedness, dizziness or SOB. Patiet as bolused with fluid prior to d/c. POD 1 they were started on Lovenox and then transitioned back to her Eliquis at regular dosage for DVT ppx, they also received Physical Therapy services twice a day. Prior to discharge, their dressing was clean dry and intact, and the plan was to be discharged home with VNA services. Time Attestation Discharge Coordination Time (in mins): 30 Quality: Safe Use of Opioids Does Pt have an Active Cancer Diagnosis on the Problem List?: No Quality: Stroke Does the patient have a stroke diagnosis?: No Physical Exam Vital Signs: Vital Signs: Last Vital Signs Temp 97.6 F 06/29/23 07:27 Pulse 80 06/29/23 07:27 Resp 16 06/29/23 07:27 BP 159/86 H 06/29/23 07:27 Pulse Ox 93 06/29/23 07:27 O2 Del Method Room Air 06/29/23 07:27 BMI result Body Mass Index 43.8 Const: General: cooperative, healthy appearing and no acute distress Resp: Effort & Inspection: normal respiratory effort and able to speak in complete sentences Cardio: Rate: regular rate Peripheral pulses: Peripheral pulses 2+ th roughout GI: Palpation (GI): Soft to palpation Skin: Lesions: no lesions Rashes: no rashes Extrem: Other: rt hip dressing is c/d/i. Able to dorsi/plantar flex. Calf is supple and nontender. Sensation intact. Pedal pulse intact. DS: Data Data Completed and Pending Completed studies during hospitalization [Text1]: Procedures Replacement of Left Knee Joint with Synthetic Substitute, Cemented, Open Approach (10/15/21) Discharge Plan Discharge Anticipated Discharge Date/Time: 06/30/23 13:00 Patient Disposition: Home Health Service Discharge Diagnosis: s/p RTHA Referrals: Jen [facility] [Outside] - 1 Day (HOME OT AND PT) Barbara Marin PA-C [Physician Quality Assurance Supervisor Trim] - 07/15/23 2:30 pm Discharge Medications: New acetaminophen 325 mg Tablet 650 mg PO Q6H PRN (Reason: Pain, Mild (Pain Scale 1-3)) 30 Days Qty: 240 0RF oxycodone 5 mg Tablet 5 mg PO Q4H PRN (Reason: Pain, Moderate(Pain Scale 4-6)) 7 Days Qty: 42 0RF Rx Instructions: Partial Fill upon patient request. Eliquis 2.5 mg Tablet 2.5 mg PO BID 42 Days Qty: 84 0RF Continued (DME) Rollator walker See Rx Instructions .Route .MEDSUPPLY Qty: 1 0RF Rx Instructions: As directed (DME) Shower Chair Misc See Rx Instructions .Route Qty: 1 0RF Rx Instructions: As directed simvastatin 20 mg tablet 20 mg PO BEDTIME Qty: 90 0RF cholecalciferol (vitamin D3) [Vitamin D3] 25 mcg (1,000 unit) capsule 25 mcg PO DAILY Qty: 90 0RF (DME) Lift recliner See Rx Instructions .Route .MEDSUPPLY Qty: 1 0RF Rx Instructions: As directed tizanidine 2 mg tablet 2 mg PO BID PRN (Reason: for muscle spasm) Qty: 60 1RF (DME) toilet seat riser See Rx Instructions .Route .MEDSUPPLY Qty: 1 0RF Rx Instructions: As directed cyanocobalamin (vitamin B-12) [Vitamin B-12] 1,000 mcg Tablet 1,000 mcg PO 3XW Eliquis 2.5 mg tablet 2.5 mg PO BID lisinopril 40 mg tablet 40 mg PO DAILY 90 Days Qty: 90 1RF latanoprost 0.005 % drops 1 drp ophthalmic-Left BEDTIME Patient Comments: left eye at bedtime timolol maleate 0.5 % gel forming solution 1 drp ophthalmic (eye) DAILY Patient Comments: left eye in the morning Discontinued acetaminophen 325 mg Tablet 650 mg PO Q6H PRN (Reason: Pain, Mild (Pain Scale 1-3)) 42 Days Qty: 240 0RF Discharge Orders: Discharge Order (Routine); Ordered 07/01/23 Ordered By: Gabby K Padma Diet: Advance to usual diet Activity on Discharge: Use cane or walker Stand Alone Forms: Patient Portal Discharge page Print Language: Comoran Care Plan Goals: restore fxn to right hip Health Concerns: none Plan of Treatment: Physical Therapy for total hip arthroplasty: posterior precautions, gait training, ROM, strength Limit stair climbing No showering, no tub bath-keep dressing clean, dry and intact No driving x6 weeks Continue Anticoagulant Follow up with [facility] in 2 weeks Assessment: stable for discharge
[2023-06-29] MEDS: HYDROmorphone HCl 0.5 MG/0.5 ML SYRINGE 0.25 MG IVPUSH (11:32)
--- NOTE | 2023-06-29 12:09 | PM.OP ---
Brief Operative Note Date of Service: 06/29/23 Pre-op diagnosis: Right hip OA Post-op diagnosis: same Procedure: Right CAITLIN Implants: Brannon Accolade 2 #5 132 and + 0 36 ceramic with Trident 2 52 Surgeon: Jose Brownlee MD Anesthesia: GETA and local Was an Tugboat Dispatcher used for this Procedure?: Yes Tugboat Dispatcher: Barbara Marin Estimated blood loss (mL): 250 IV fluids (mL): 800 Pathology: other Condition: stable Disposition: PACU
--- NOTE | 2023-06-29 15:34 | PHA.MEDREC ---
Pharmacy Consult ? Medication Reconciliation RN has completed the medication reconciliation, pharmacy reviewed.
[2023-06-29] MEDS: ceFAZolin Sodium/Dextrose,Iso 2 GM/50 ML PIGGYBACK IV (17:02)
[2023-06-29] MEDS: oxyCODONE HCl Immed Release 5 MG TABLET PO (18:55)
[2023-06-29] MEDS: Latanoprost 0.005 % Ophth Sol 2.5 ML DROPS 1 DROP EYE-LEFT (22:41)
[2023-06-29] MEDS: 0.9 % Sodium Chloride Flush 3 ML SYRINGE IVFLUSH (22:45)
[2023-06-30] VITALS (8 sets, daily range): BP systolic 112–139; BP diastolic 58–66; PULSE 82–101; RESP 16–20; TEMP 36–36.5; O2SAT 91–96
[2023-06-30] MEDS: oxyCODONE HCl Immed Release 5 MG TABLET PO (04:20)
[2023-06-30 06:50] LABS: Basophils Percent Auto 0.2 % (0-2); Hematocrit 27.3 % (37.0-47.0); Hemoglobin 9.2 g/dl (12.0-16.0); Imm Gran Abs Auto 0.03 X10*3/uL (0.00-0.03); Imm Gran Pct Auto 0.3 % (0.0-0.4); Lymphocytes Absolute Auto 1.4 X10*3/uL (1.2-4.9); Lymphocytes Percent Auto 14.6 % (20-40); MANUAL DIFF FLAG SCAN; Mean Corpuscular HGB Conc 33.7 g/dl (31.0-35.0); Mean Corpuscular Hemoglobin 31.8 pg (27.0-33.0); Mean Corpuscular Volume 94.5 fL (80.0-98.0); Mean Platelet Volume 10.3 fL (9.4-12.3); Monocytes Absolute Auto 1.5 X10*3/uL (0.1-1.2); Monocytes Percent Auto 16.5 % (2-11); Neutrophils Absolute Auto 6.3 x10*3/uL (2.0-8.3); Neutrophils Percent Auto 68.4 % (45-73); Platelet Count 239 X10*3/uL (160-400); Red Blood Count 2.89 X10*6/uL (4.20-5.50); Red Cell Distribution Width 13.1 % (11.0-16.0); SCAN SMEAR FLAG 1; White Blood Count 9.3 X10*3/uL (4.8-10.8)
[2023-06-30 07:04] LABS: Anion Gap 16 (12-20); Blood Urea Nitrogen 21 mg/dL (9-16); Calcium 8.8 mg/dL (8.4-10.2); Carbon Dioxide 19 mmol/L (22-29); Chloride 105 mmol/L (96-108); Creatinine Clr Calc Pharmacy 84.7; Estimated Glomerular Filt Rate > 60; Glucose Fasting 152 mg/dL (60-99); Potassium 4.5 mmol/L (3.3-5.1); Sodium 135 mmol/L (135-145)
[2023-06-30 07:32] LABS: SLIDE REVIEW VERIFIED
[2023-06-30] MEDS: timoloL maleate XE 0.5 % Gel 5 ML DRBTL 1 DROP EYE-BOTH (08:53)
[2023-06-30] MEDS: oxyCODONE HCl ER 10 MG TAB.ER.12H PO ×2 (08:53→20:17)
[2023-06-30] MEDS: Apixaban 2.5 MG TABLET PO ×2 (08:53→20:17)
[2023-06-30] MEDS: Lactated Ringers 1,000 ML 100 ML IVCONT (08:53)
[2023-06-30] MEDS: Docusate Sodium 100 MG CAPSULE PO ×2 (08:53→20:17)
--- NOTE | 2023-06-30 09:30 | HO.POSTANES ---
Post Anesthesia Evaluation Post Anesthesia Evaluation Date of Service: 06/30/23 Vital Signs: Vital Signs Temp Pulse Resp BP Pulse Ox O2 Del Method 06/30/23 08:36 87 112/66 06/30/23 07:41 97.7 F 83 18 120/60 92 Room Air 06/30/23 03:34 96.8 F 82 18 128/58 L 91 L Room Air Anesthesia: General LMA Mental Status: Awake Pain Control: Satisfactory Nausea/Vomiting: None Hydration: Adequate Anesthesia-Related Issues: No Anes. Related Issues
--- NOTE | 2023-06-30 09:46 | MHC.CM.PN ---
IMM 06/30/23, EMR REVIEWED, PT S/P RT CAITLIN, P.T. 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 PT VERIFIES PCP ON FILE IS CORRECT AND PT REPORTS HER SON LYDIA FONTANA [phone].
--- NOTE | 2023-06-30 10:38 | PM.PNORT ---
Subjective Subjective Date of Service: 06/30/23 Interval history: POD1 s/p rt CAITLIN Patient is resting in bed comfortably No overnight events Pain is managed No additional complaints Physical Exam Vital Signs: Vital Signs: Last Vital Signs Temp 97.7 F 06/30/23 07:41 Pulse 87 06/30/23 08:36 Resp 18 06/30/23 07:41 BP 112/66 06/30/23 08:36 Pulse Ox 92 06/30/23 07:41 O2 Del Method Room Air 06/30/23 07:41 O2 Flow Rate 2 06/29/23 15:30 BMI result Body Mass Index 43.8 Const: General: cooperative, healthy appearing and no acute distress Resp: Effort & Inspection: normal respiratory effort and able to speak in complete sentences Cardio: Rate: regular rate Peripheral pulses: Peripheral pulses 2+ throughout GI: Palpation (GI): Soft to palpation Skin: Lesions: no lesions Rashes: no rashes Extrem: Other: right hip dressing is c/d/i. Able to dorsi/plantar flex. Calf is supple and nontender. Sensation intact. Pedal pulse intact. Procedures Date of Service Date of Service: 06/30/23 Progress Note: A&P Assessment and plan (1) Status post total hip replacement, right: Status: Acute Plan Continue pain mgmnt Begin Eliquis for dvt ppx begin PT/OT for RTHA Dispo planning-Pending PT eval, pain mgmnt Time Spent With Patient Time: Total time managing care of this patient today ____ minutes. Quality Stroke Does the patient have a stroke diagnosis?: No VTE Prior VTE?: No VTE Risk Level:: Medical - moderate - high VTE Device Contraindication: N/A - Device Ordered VTE Drug Contraindication: N/A - Med Ordered
[2023-06-30] MEDS: 0.9 % Sodium Chloride Flush 3 ML SYRINGE IVFLUSH (20:18)
[2023-06-30] MEDS: Latanoprost 0.005 % Ophth Sol 2.5 ML DROPS 1 DROP EYE-LEFT (20:22)
[2023-06-30] MEDS: HYDROmorphone HCl 0.5 MG/0.5 ML SYRINGE 0.25 MG IVPUSH (23:06)
[2023-07-01 03:36] VITALS: BP 129/59; PULSE 84; RESP 18; TEMP 36; O2SAT 95
--- NOTE | 2023-07-01 06:41 | P.OP_ITS ---
Operative Note Operative Note Date of Service: 07/01/23 Narrative: Date of Service: 06/29/23 Pre-op diagnosis: Right hip OA Post-op diagnosis: same Procedure: Right CAITLIN Implants: Sullivan Accolade 2 #5 132 and + 0 36 ceramic with Trident 2 52 Surgeon: Jose Brownlee MD Anesthesia: GETA and local Was an Benefits Assistant used for this Procedure?: Yes Benefits Assistant: Barbara Marin Estimated blood loss (mL): 250 IV fluids (mL): 800 Pathology: other Condition: stable Disposition: PACU Procedure in detail: Patient was brought into the operating room and placed in the right lateral decubitus position. All bony prominences were well padded and the limb was prepped and draped in standard sterile fashion. A time-out was called to identify proper site procedure proper surgeon IV antibiotics and 1 g of transaxemic acid were administered. I began by making a curvilinear incision over the posterolateral aspect of the greater trochanter. Dissection was taken down to the tensor fascia which was incised in line with the incision and a Charnley retractor was placed. Cautery was used to maintain hemostasis. The hip was internally rotated and the external rotators were identified. The vessels were cauterized and a full-thickness capsular/external rotator layer was developed starting just proximal to the piriformis. This layer was tagged and a dull Hohmann retractor was placed underneath the neck in the hip was dislocated. A neck cut was made 1 cm proximal to the lesser trochanter and the head and neck were removed and measured 48mm on the back table. The head was eburnated and deformed. I then removed the labrum and cauterized the fovea. I started with a 44 reamer and medialized to the inner table. I sequentially reamed up to a size 52 and impacted a 52mm cup at 45 degrees of inclination and 25 degrees of version. I then placed a 20 deg posterior lipped liner and turned my attention to the femur. I identified the piriformis insertion and used this as a starting point for my tish cutter. The medius tendon was protected with a Hibs retractor. A Charnley awl was inserted in the canal and a curved curette used to remove the lateral bone. I irrigated copiously. I then sequentially broached in the patient's natural version to a size 5 and placed my trial implants. I used a #5/132/+0 based on my pre-operative template. Using a trail head I took the hip through range of motion. I was satisfied with the stability and length. I removed all instrumentation and copiously irrigated. I placed my final femoral implant and again took the hip through range of motion and was satisfied with the stability and length. The final +0 implant was impacted in place and the hip reduced. I then irrigated copiously and placed 1 g of local transaxemic acid. I performed a capsular closure with 2.0 fiberwire, Maricruz's fascia with 0 Vicryl, subcuticular with 2-0 Vicryl and the skin with attila. Patient was placed into a sterile dressing. Patient was extubated brought to the recovery room in stable condition. There were no known complications.
[2023-07-01 06:53] LABS: Basophils Percent Auto 0.4 % (0-2); Eosinophils Percent Auto 0.2 % (0-4); Hemoglobin 8.3 g/dl (12.0-16.0); Imm Gran Abs Auto 0.05 X10*3/uL (0.00-0.03); Imm Gran Pct Auto 0.5 % (0.0-0.4); Lymphocytes Percent Auto 19.3 % (20-40); MANUAL DIFF FLAG SCAN; Mean Corpuscular HGB Conc 33.6 g/dl (31.0-35.0); Mean Corpuscular Hemoglobin 31.7 pg (27.0-33.0); Mean Corpuscular Volume 94.3 fL (80.0-98.0); Mean Platelet Volume 10.4 fL (9.4-12.3); Monocytes Absolute Auto 1.5 X10*3/uL (0.1-1.2); Monocytes Percent Auto 14.5 % (2-11); Neutrophils Absolute Auto 6.9 x10*3/uL (2.0-8.3); Neutrophils Percent Auto 65.1 % (45-73); Platelet Count 186 X10*3/uL (160-400); Red Blood Count 2.62 X10*6/uL (4.20-5.50); Red Cell Distribution Width 13.2 % (11.0-16.0); SCAN SMEAR FLAG 1; White Blood Count 10.6 X10*3/uL (4.8-10.8)
[2023-07-01 06:55] LABS: Hematocrit 24.7 % (37.0-47.0)
[2023-07-01 07:05] LABS: Anion Gap 14 (12-20); Blood Urea Nitrogen 14 mg/dL (9-16); Calcium 8.6 mg/dL (8.4-10.2); Carbon Dioxide 23 mmol/L (22-29); Chloride 102 mmol/L (96-108); Creatinine Clr Calc Pharmacy 99.6; Estimated Glomerular Filt Rate > 60; Glucose Fasting 121 mg/dL (60-99); Sodium 135 mmol/L (135-145)
[2023-07-01 07:23] LABS: SLIDE REVIEW VERIFIED
[2023-07-01 07:40] VITALS: BP 113/55; PULSE 88; RESP 20; TEMP 36.9; O2SAT 95
[2023-07-01] MEDS: oxyCODONE HCl ER 10 MG TAB.ER.12H PO (09:05)
[2023-07-01] MEDS: Apixaban 2.5 MG TABLET PO (09:05)
[2023-07-01] MEDS: Docusate Sodium 100 MG CAPSULE PO (09:05)
[2023-07-01] MEDS: 0.9 % Sodium Chloride Flush 3 ML SYRINGE IVFLUSH (09:08)
[2023-07-01] MEDS: timoloL maleate XE 0.5 % Gel 5 ML DRBTL 1 DROP EYE-BOTH (09:08)
--- NOTE | 2023-07-01 09:25 | MHC.CM.PN ---
PT MEDICALLY CLEARED FOR DC HOME W/NEW [facility] FOR OT/PT, PT WILL BE ON ELIQUIS FOR ANTICOAGULATION, PT WILL ARRANGE TRANSPORT
--- NOTE | 2023-07-01 09:27 | P.F2F_ITS ---
Service Date Service Date: 07/01/23 Encounter Date of encounter: 07/01/23 Reasons for Services Signs and symptoms assessed: s/p RTHA Pt. is considered homebound due to recent surgery. Unable to drive, poor balance, poor gait mechanics. Reason for physical therapy: home safety and mobility, therapeutic exercises, restore joint function, gait/transfer training, assess need for DME and ADL training Reason for occupational therapy: home safety and mobility, therapeutic exercises, restore joint function, gait/transfer training, assess need for DME and ADL training Homebound: Leaving the home is medically contraindicated at this time without the asist of a device and/or another person due th the listed conditions above and below. Reason homebound: unsteady gait / fall risk, leg weakness, pain with ambulation, pain with transfers, poor balance / fall risk and unable to drive Certification: Based on the above findings, I certify that this patient is confined to the home and needs intermittent residential care, physical therapy and/or speech therapy, or continues to need occupational therapy. The patient is under my care, and I have initiated the establishment of the plan of care. The patient will be followed by a physician who will periodically review the plan of care. Time Spent With Patient Time: Total time managing care of this patient today ____ minutes.
[2023-07-01] MEDS: 0.9 % Sodium Chloride 1,000 ML 999 ML IV (10:47)
== END 2023-07-01 13:35 | disposition home health service (06) | DRG 470 ==
LOC: HO.SSSA 17:07 → HO.IMC 19:09
PROVIDERS: Nurse Practitioner; Orthopaedic Surgery; Admitting Provider Physician Assistant; PCP Internal Medicine; Visit Provider Physician Assistant
PROC: (CPT 27130; principal; 2023-06-29 09:30)
DX: M16.11 Unilateral primary osteoarthritis, right hip (principal); Z91.040 Latex allergy status; Z79.899 Other long term (current) drug therapy
CPT/HCPCS: 36415; 72170; 80048; 85025; 85027; 86850; 86900; 86901; 87640; 87641; 88304; 88311; 93005; 97116; 97162; 97166; 97530; C1776; J0131; J0690; J1170; J2250; J2704; J2795; J3010; J7120

== ENCOUNTER → 2023-06-29 06:39 | Outpatient (BNV) | payer OTHER, SELFPAY | PROVIDERS: Admitting Provider Physician Assistant; PCP Internal Medicine; Visit Provider Orthopaedic Surgery | DX: Z96.641 Presence of right artificial hip joint (principal) | CPT/HCPCS: 27130; 99024; G0180 ==

== ENCOUNTER 2023-07-07 12:09 | Outpatient (AMB) | payer OTHER, SELFPAY ==
--- NOTE | 2023-07-07 12:13 | MHC.OFFVIS ---
Intake Visit Reasons: PO- bandage change s/p rt CAITLIN on 06/29/23 NE Intake Note: Suzi Bird a 62 year old female who presents today for a post operative bandage change s/p right CAITLIN on 06/29/23 NE. Allergies adhesive tape Allergy (Severe, Verified 07/07/23 12:34) Rash latex Allergy (Severe, Verified 07/07/23 12:34) Rash celecoxib [From Celebrex] Adverse Reaction (Severe, Verified 07/07/23 12:34) body rash HPI HPI PO- bandage change s/p rt CAITLIN on 06/29/23 NE: Details: 62-year-old female who returns to the office today for post-op bandage change s/p ret CAITLIN, 06/29/[address] Brownlee. [facility] Medical History History of cardiac murmur as a child History of seizure Osteoarthritis of left knee Lumbar disc herniation Arthritis Glaucoma Morbid obesity Hyperlipidemia Hypertension Surgical History History of left knee replacement (~2021) Total knee replacement status Hx of colonoscopy History of ankle surgery H/O brain surgery Hx of hysterectomy Family History Father Dementia Cancer Mother Ovarian cancer Brother No problems noted. Brother No problems noted. Social History Household Members: None Housing: [facility] Are you a primary special needs caregiver to a significant other at home: No Do you presently have visiting nurse or other home services: No Alcohol intake: current Alcohol intake frequency: holidays/special occasions only Patient Tobacco Use Status: Never used Tobacco e-Cigarette/Vaping Use: Never Used service: No Current occupational status: disabled Current occupation: Rt handed Cognitive needs: No Hearing needs: No Vision needs: No Review of Systems Const All systems reviewed & are unremarkable except as noted in HPI and below Physical Exam Extrem Other: Right hip: Incision clean, dry and intact. No erythema or drainage. No hematoma or seroma. NVI. Assessment & Plan Assessment & Plan (1) Status post total hip replacement, right: Code(s): Z96.641 - Presence of right artificial hip joint Category: Surgical Plan Nat device removed. A new total joint dressing was applied which she will keep clean, dry and intact till her postop appointment on July 14. A physical therapy order was also placed which she will transition after postop appointment next week. Orders: Orders PT Evaluation and Treatment Today Z96.641 - Presence of right artificial hip joint Patient Instructions: Scribed for Barbara Marin PA-C, by Wilver Brown family practice medical doctor, on 07/07/2023 at 12:30 PM EST.? I, Barbara Marin PA-C, have personally reviewed and agree with the information entered by the scribe. Coding Level of Care Code Global (78275) Diagnoses Status post total hip replacement, right Z96.641
== END 2023-07-07 13:43 | disposition home or self-care (01) ==
PROVIDERS: PCP Internal Medicine; Visit Provider Physician Assistant
DX: Z96.641 Presence of right artificial hip joint (principal)
CPT/HCPCS: 99024

== ENCOUNTER → 2023-07-07 12:09 | Outpatient (BNVA) | payer OTHER, SELFPAY | PROVIDERS: PCP Internal Medicine; Visit Provider Physician Assistant | DX: Z96.641 Presence of right artificial hip joint (principal) | CPT/HCPCS: 99212 ==

== ENCOUNTER 2023-07-15 14:32 | Outpatient (AMB) | payer OTHER, SELFPAY ==
--- NOTE | 2023-07-15 14:34 | A.OFFVIS_ITS ---
Intake Visit Reasons: 2WK PO: 06/29/23 R CAITLIN w/NE Intake Note: Suzi Bird a 62 year old female who presents today for a post operative right CAITLIN on 06/29/23 NE. Patient reports she is doing well, states her current pain level is 2 out of 10. Allergies adhesive tape Allergy (Severe, Verified 07/15/23 14:37) Rash latex Allergy (Severe, Verified 07/15/23 14:37) Rash celecoxib [From Celebrex] Adverse Reaction (Severe, Verified 07/15/23 14:37) body rash HPI HPI 2WK PO: 06/29/23 R CAITLIN w/NE: Details: 62-year-old female who returns to the office today for post-op right CAITLIN, 06/29/[address] Bailey. She states she has pain and rates the pain as 2 on the scale of 0-10. She is doing well otherwise and has no concerns today. [facility] Medical History History of cardiac murmur as a child History of seizure Osteoarthritis of left knee Lumbar disc herniation Arthritis Glaucoma Morbid obesity Hyperlipidemia Hypertension Surgical History History of left knee replacement (~2021) Total knee replacement status Hx of colonoscopy History of ankle surgery H/O brain surgery Hx of hysterectomy Family History Father Dementia Cancer Mother Ovarian cancer Brother No problems noted. Brother No problems noted. Social History Household Members: None Housing: [facility] Are you a primary care associate to a significant other at home: No Do you presently have visiting nurse or other home services: No Alcohol intake: current Alcohol intake frequency: holidays/special occasions only Patient Tobacco Use Status: Never used Tobacco e-Cigarette/Vaping Use: Never Used service: No Current occupational status: disabled Current occupation: Rt handed Cognitive needs: No Hearing needs: No Vision needs: No Review of Systems Const All systems reviewed & are unremarkable except as noted in HPI and below Physical Exam Extrem Other: Right hip: Incision clean, dry and intact. No open wound. No erythema. Calf supple, nontender. NVI. Assessment & Plan Assessment & Plan (1) Status post total hip replacement, right: Code(s): Z96.641 - Presence of right artificial hip joint Category: Surgical Plan Oseas removed, steri strips applied. She will begin to transition to Outpatient PT to continue working on Gait training, ROM and quad strength. No driving for another 4 weeks. She will require ppx abx for dental procedures. She will f/u in 4 weeks, sooner if needed. Patient Instructions: Scribed for Barbara Marin PA-C, by Wilver Brown medical customer service representative, on 07/15/2023 at 2:30 PM EST.? I, Barbara Marin PA-C, have personally reviewed and agree with the information entered by the scribe. Coding Level of Care Code Global (67837) Diagnoses Status post total hip replacement, right Z96.641
== END 2023-07-20 21:11 | disposition home or self-care (01) ==
PROVIDERS: PCP Internal Medicine; Visit Provider Physician Assistant
DX: Z96.641 Presence of right artificial hip joint (principal)
CPT/HCPCS: 99024

== ENCOUNTER → 2023-07-15 14:32 | Outpatient (BNVA) | payer OTHER, SELFPAY | PROVIDERS: PCP Internal Medicine; Visit Provider Physician Assistant | DX: Z96.641 Presence of right artificial hip joint (principal) | CPT/HCPCS: 99212 ==

== ENCOUNTER 2023-08-05 08:39 | Outpatient (REF) | payer OTHER, SELFPAY ==
--- NOTE | ~2023-08-05 | XR_ITS ---
EXAMINATION: XR PELVIS CLINICAL INFORMATION: Pain in unspecified hip. COMPARISON: 06/29/2023 x-ray pelvis. TECHNIQUE: AP view of the pelvis. FINDINGS: Redemonstration of right total hip arthroplasty. Hardware appears intact. Alignment is maintained on AP view provided. Vascular calcifications. Mild osteoarthritis in the left hip and sacroiliac joints. Degenerative spondylosis in the lower lumbar spine. XR/XR pelvis 1-2V IMPRESSION: Redemonstration of right total hip arthroplasty. Hardware appears intact. Alignment is maintained on AP view provided.
== END 2023-08-05 08:40 | disposition home or self-care (01) ==
LOC: HO.HOSX 08:39
PROVIDERS: Visit Provider Orthopaedic Surgery
DX: M25.551 Pain in right hip (principal); Z47.1 Aftercare following joint replacement surgery; Z96.641 Presence of right artificial hip joint
CPT/HCPCS: 72170; 99212

== ENCOUNTER 2023-08-05 14:05 | Outpatient (AMB) | payer OTHER, SELFPAY ==
--- NOTE | 2023-08-05 14:42 | MHC.OFFVIS ---
Intake Visit Reasons: 6 WK PO: 06/29/23 R CAITLIN w/NE Intake Note: Suzi Bird a 62 year old female who presents today for a post operative right CAITLIN on 06/29/23 NE. Patient reports she is doing well, with no concerns Allergies adhesive tape Allergy (Severe, Verified 07/15/23 14:37) Rash latex Allergy (Severe, Verified 07/15/23 14:37) Rash celecoxib [From Celebrex] Adverse Reaction (Severe, Verified 07/15/23 14:37) body rash HPI HPI 6 WK PO: 06/29/23 R CAITLIN w/NE: Details: 6 weeks post op doing well. No pain. Walking with cane/walker [facility] Medical History History of cardiac murmur as a child History of seizure Osteoarthritis of left knee Lumbar disc herniation Arthritis Glaucoma Morbid obesity Hyperlipidemia Hypertension Surgical History History of left knee replacement (~2021) Total knee replacement status Hx of colonoscopy History of ankle surgery H/O brain surgery Hx of hysterectomy Family History Father Dementia Cancer Mother Ovarian cancer Brother No problems noted. Brother No problems noted. Social History Household Members: None Housing: [facility] Are you a primary medicare nurse to a significant other at home: No Do you presently have visiting nurse or other home services: No Alcohol intake: current Alcohol intake frequency: holidays/special occasions only Patient Tobacco Use Status: Never used Tobacco e-Cigarette/Vaping Use: Never Used service: No Current occupational status: disabled Current occupation: Rt handed Cognitive needs: No Hearing needs: No Vision needs: No Physical Exam Extrem Other: inc c/d/i no pain with hip ROM mild Trendelenberg gait Results Reviewed Results Reviewed: I personally reviewed relevant radiographs. Right CAITLIN in expected post operative position with no hardware complications or evidence of loosening Assessment & Plan Assessment & Plan (1) Status post total hip replacement, right: Code(s): Z96.641 - Presence of right artificial hip joint Category: Surgical Plan: Continue gait training and working on transitioning to a cane. June d/c Eliquis. f/u 6 weeks Orders: Orders XR pelvis 1-2V 08/05/23 M25.559 - Pain in unspecified hip Coding Level of Care Code Global (10073) Diagnoses Status post total hip replacement, right Z96.641
== END 2023-08-05 15:55 | disposition home or self-care (01) ==
PROVIDERS: PCP Internal Medicine; Visit Provider Orthopaedic Surgery
DX: Z96.641 Presence of right artificial hip joint (principal)
CPT/HCPCS: 99024

== ENCOUNTER 2023-08-18 13:00 | Outpatient (RCR) | payer OTHER, SELFPAY ==
--- NOTE | 2023-07-23 13:56 | MHC.PT.EP ---
[facility] [place] [facility] [place] [facility] [place] Office [address] Arslan Capps [address] [phone] F: [phone] F: [phone] F: [phone] F: [phone] Physical Therapy Plan of Care Date of Evaluation: 07/23/23 Date of Surgery: Diagnosis: Presence of R artificial hip, R CAITLIN Assessment: Patient is a 62 year old R handed female who presents with s/s consistent with R CAITLIN. She does not work and lives a fairly sedentary lifestyle at this time. Patient past medical history includes TBI, seizure, b/l TKA. Current impairments include pain, balance, flexibility, ROM, strength, activity tolerance and functional mobility. 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 Patient is motivated with good rehab potential. Skilled PT will address impairments and functional limitations in order to achieve goals. Frequency and Duration: The patient will be seen 2x/week for 5 weeks Short Term Goals: I with HEP - 2 weeks Amb with cane, symmetrical gait - 3 weeks SLB > 5 seconds - 3 weeks [facility] Goals: LEFS 54/80 - 5 weeks Strength 4/5 grossly - 5 weeks SLB > 10 seconds - 5 weeks Max pain with ADLs - 2/10 - 5 weeks Treatment Plan: Modalities to reduce pain, spasms and effusion. Manual therapy to restore motion and function. Therapeutic exercise to improve strength and flexibility. Neuromuscular re-education for posture and balance. Therapeutic activities to return to functional activities of daily living. Electronically signed by: Everett Mon, PT Please sign and return to therapist. Thank you for your referral.
--- NOTE | 2023-11-25 11:37 | MHC.PT.DC ---
[facility] [place] [facility] [place] [facility] [place] [facility] [address] Arslan Capps [address] [phone] F: [phone] F: [phone] F: [phone] F: [phone] Physical Therapy Discharge Report Diagnosis: Presence of R artificial hip, R CAITLIN Date of Surgery: Date of Evaluation: 07/23/23 Date of Discharge: 09/06/23 Treatments to Date: 6 Cancellations to Date: No Shows to Date: Discharge Status: Independent with HEP Patient Elected to Stop Discharge Summary: 08/18/23: pt progressing functionally. good mechanics with program. progressed bands and reviewed HEP. pt notes she is doing well functionally and will ask MD about being able to sit on couch. Electronically signed by: Everett Mon, PT Please sign and return to therapist. Thank you for your referral.
== END 2023-11-25 11:37 | disposition home or self-care (01) ==
LOC: HO.PTCHIC 13:00
PROVIDERS: PCP Internal Medicine; Visit Provider Physician Assistant
DX: Z96.641 Presence of right artificial hip joint (principal)
CPT/HCPCS: 97110; 97140; 97162

== ENCOUNTER 2023-09-30 13:47 | Outpatient (REF) | payer OTHER, SELFPAY ==
--- NOTE | ~2023-09-30 | XR_ITS ---
EXAMINATION: XR PELVIS CLINICAL INFORMATION: Pain in unspecified hip COMPARISON: 06/29/2023, 08/05/2023 TECHNIQUE: 2 AP views of the pelvis. FINDINGS: Status post right total hip arthroplasty. Alignment maintained. Hardware appears intact. Mild osteoarthritis the left hip and sacroiliac joints. Degenerative changes in the lower lumbar spine. XR/XR pelvis 1-2V IMPRESSION: Status post right total hip arthroplasty. Hardware appears intact. Electronically signed by: Margarita Emmanuel MD 10/27/2023 12:58 PM EDT
== END 2023-09-30 13:48 | disposition home or self-care (01) ==
LOC: HO.HOSX 13:47
PROVIDERS: Visit Provider Orthopaedic Surgery
DX: M25.559 Pain in unspecified hip (principal); Z96.641 Presence of right artificial hip joint
CPT/HCPCS: 72170; 99212

== ENCOUNTER 2023-09-30 14:05 | Outpatient (AMB) | payer OTHER, SELFPAY ==
--- NOTE | 2023-09-30 14:34 | A.OFFVIS_ITS ---
Intake Visit Reasons: 8 WK f/u PO: 06/29/23 R CAITLIN w/NE Intake Note: Suzi Bird is a 62 year old female who presents today for a post operative appointment s/p Right CAITLIN 06/29/23. Patient reports that she is doing well with no concerns Allergies adhesive tape Allergy (Severe, Verified 07/15/23 14:37) Rash latex Allergy (Severe, Verified 07/15/23 14:37) Rash celecoxib [From Celebrex] Adverse Reaction (Severe, Verified 07/15/23 14:37) body rash HPI HPI 8 WK f/u PO: 06/29/23 R CAITLIN w/NE: Details: Suzi Bird is a 62 year old female who presents today for a post operative appointment s/p Right CAITLIN 06/29/23. Patient reports that she is doing well with no concerns [facility] Medical History History of cardiac murmur as a child History of seizure Osteoarthritis of left knee Lumbar disc herniation Arthritis Glaucoma Morbid obesity Hyperlipidemia Hypertension Surgical History History of left knee replacement (~2021) Total knee replacement status Hx of colonoscopy History of ankle surgery H/O brain surgery Hx of hysterectomy Family History Father Dementia Cancer Mother Ovarian cancer Brother No problems noted. Brother No problems noted. Social History Household Members: None Housing: [facility] Are you a primary rn managed care to a significant other at home: No Do you presently have visiting nurse or other home services: No Alcohol intake: current Alcohol intake frequency: holidays/special occasions only Patient Tobacco Use Status: Never used Tobacco e-Cigarette/Vaping Use: Never Used service: No Current occupational status: disabled Current occupation: Rt handed Cognitive needs: No Hearing needs: No Vision needs: No Physical Exam Extrem Other: Walking extremely well. No pain with hip range of motion. Assessment & Plan Assessment & Plan (1) Status post total hip replacement, right: Code(s): Z96.641 - Presence of right artificial hip joint Category: Surgical Plan: Doing well status post hip replacement. Continue strengthening and weight loss. Follow up in 9 months. Dental prophylaxis discussed. Orders: Orders XR pelvis 1-2V 09/30/23 M25.559 - Pain in unspecified hip Coding Level of Care Code Global (12788) Diagnoses Status post total hip replacement, right Z96.641
== END 2023-09-30 14:49 | disposition home or self-care (01) ==
PROVIDERS: PCP Internal Medicine; Visit Provider Orthopaedic Surgery
DX: Z47.1 Aftercare following joint replacement surgery (principal); Z96.641 Presence of right artificial hip joint
CPT/HCPCS: 99212

== ENCOUNTER 2023-11-05 11:31 | Outpatient (AMB) | payer OTHER, SELFPAY ==
[2023-11-05 11:32] VITALS: BP 134/86; PULSE 84; O2SAT 96; BMI 46.4
--- NOTE | 2023-11-05 11:32 | MHC.PC.OV ---
Vital Signs 11/05/23 11:32 Height 5 ft 4 in Weight 270 lb 8 oz BMI 46.4 BP 134/86 Blood Pressure Location Rt brachial Position Sitting Pulse 84 Pulse Source Pulse Oximeter Pulse Oximetry (%) 96 Oxygen Delivery Method Room Air Intake Visit Reasons: Annual PE Overdue Allergies adhesive tape Allergy (Severe, Verified 11/05/23 11:32) Rash latex Allergy (Severe, Verified 11/05/23 11:32) Rash celecoxib [From Celebrex] Adverse Reaction (Severe, Verified 11/05/23 11:32) body rash Medication List - Last Reconciled 11/05/23 by Luna Marino MD acetaminophen 650 mg (2 x 325 mg) PO Q6H PRN 30 days cholecalciferol (vitamin D3) (Vitamin D3) 25 mcg PO DAILY cyanocobalamin (vitamin B-12) (Vitamin B-12) 1,000 mcg PO 3XW latanoprost 0.005% 1 drp ophthalmic-Left BEDTIME [Lift recliner As directed] lisinopril 40 mg PO DAILY 90 days [Rollator walker As directed] Shower Chair As directed simvastatin 20 mg PO BEDTIME timolol maleate 0.5% 1 drp ophthalmic (eye) DAILY tizanidine 2 mg PO BID PRN [toilet seat riser As directed] Tobacco use date assessed: 11/05/23 Dental Screening Dental Screen Date: 11/05/23 Did you have a dental visit in the last 12 months?: Yes Did you have a dental problem in the last 6 months where you did not have access to dental care?: No Was dental information given to patient?: Patient has dentist HPI Annual PE Overdue HPI Details Patient is 62-year-old female came today for physical examination Only medication from this office is lisinopril and simvastatin Blood pressure is well-controlled patient is tolerating both medications no side effects Lab order placed to be done fasting She is on B12 and vitamin-D supplement Patient have a history of full hysterectomy due to heavy menstrual cycles Colonoscopy was in 2018 next 1 will be in 2027 She has appointment coming up for mammogram at [facility] Patient is prediabetic, controlling diet She is also morbidly obese and have chronic lymphedema bilateral She goes to pain management for hip Patient was unable to get on examination table today. Follow-up six-month physical exam 1 year [facility] Medical History History of cardiac murmur as a child History of seizure Osteoarthritis of left knee Lumbar disc herniation Arthritis Glaucoma Morbid obesity Hyperlipidemia Hypertension Surgical History History of left knee replacement (~2021) Total knee replacement status Hx of colonoscopy History of ankle surgery H/O brain surgery Hx of hysterectomy Family History Father Dementia Cancer Mother Ovarian cancer Brother No problems noted. Brother No problems noted. Social History Household Members: None Housing: Senior Care Are you a primary manager intensive care unit to a significant other at home: No Do you presently have visiting nurse or other home services: No Alcohol intake: current Alcohol intake frequency: holidays/special occasions only Patient Tobacco Use Status: Never used Tobacco e-Cigarette/Vaping Use: Never Used service: No Current occupational status: disabled Current occupation: Rt handed Cognitive needs: No Hearing needs: No Vision needs: No Questionnaire PHQ-9 Over the last 2 weeks, how often have you been bothered by any of the following problems? 1. Little interest or pleasure in doing things: not at all 2. Feeling down, depressed, or hopeless: not at all 3. Trouble falling or staying asleep, or sleeping too much: not at all 4. Feeling tired or having little energy: not at all 5. Poor appetite or overeating: not at all 6. Feeling bad about yourself - or that you are a failure or have let yourself or your family down: not at all 7. Trouble concentrating on things, such as reading the newspaper or watching television: not at all 8. Moving or speaking so slowly that other people could have noticed. Or the opposite - being so fidgety or restless that you have been moving around a lot more than usual: not at all 9. Thoughts that you would be better off or of hurting yourself in some way: not at all Total score: 0 Depression Screening Interpretation: Negative Depression Screening Done: Yes 80874 - PHQ-9 Billing: Yes Source: Developed by Drs. Manolo Veronica Anderson Kurt Kroenke and colleagues, with an educational presley from [employer]. Thrive Questionnaire Date Thrive assessed: 06/30/23 Please select the resources that you would like help with: None Currently or been in a relationship where the following occur: I choose not to answer THRIVE Score: 0 AUDIT C Alcohol Use Questionnaire (AUDIT-C) 1. How often do you have a drink containing alcohol?: Monthly or less 3. How often do you have six or more drinks on one occasion?: Never Total Score: 1 Score Reviewed/Action Taken: Yes BONG-7 AMB Questionnaire BONG-7 Date BONG - 7 assessed: 11/05/23 Feeling nervous, anxious, or on edge: 0 = Not at all Not being able to stop or control worryin = Not at all Worrying too much about different things: 0 = Not at all Trouble relaxin = Not at all Being so restless that it is hard to sit still: 0 = Not at all Becoming easily annoyed or irritable: 0 = Not at all Feeling afraid as if something awful might happen: 0 = Not at all Total BONG-7 score (0-4 normal; 5-9 mild; 10-14 moderate; 15-21 severe): 0 Source: Developed by Drs. Manolo Hastings, Ferny Finnegan and colleagues, with an educational presley from [employer]. BONG-7 Assessment Billing BONG-7 Assessment Tool: BONG-7 Assessment 57922 Review of Systems Const Denies chills, Denies fever(s) and Denies headache(s) Eyes Denies blurry vision ENT Denies headache(s), Denies nasal discharge, Denies nasal obstruction, Denies odynophagia and Denies sinus pain Card Denies chest pain at rest and Denies chest pain with activity Resp Denies cough and Denies hemoptysis GI Denies diarrhea, Denies odynophagia, Denies vomiting and Denies hematemesis Reports as per HPI Skin/Breast Reports as per HPI Neuro Denies Neuro-related abnormal movements, Denies Abnormal speech present and Denies headache(s) Psych Denies mood swings and Denies paranoia Endo Reports as per HPI Florentin/Lymph Reports as per HPI Aller/Immun Reports as per HPI Physical exam (Primary Care) Vital Signs: Last Vital Signs Pulse 84 11/05/23 11:32 BP 134/86 11/05/23 11:32 Pulse Ox 96 11/05/23 11:32 Oxygen Delivery Method Room Air 11/05/23 11:32 BMI result Body Mass Index 46.4 Tobacco/Smoking Status: Tobacco use Status Tobacco use date assessed 11/05/23 11/05/23 11:34 Patient Tobacco Use Status Never used Tobacco 11/05/23 11:34 e-Cigarette/Vaping Use Never Used 11/05/23 11:34 PHQ-9: PHQ-9 Score PHQ-9: Total score 0 11/05/23 14:00 Depression Screening Interpretation: Negative Thrive Assessment: Date of Thrive Assessment Date Thrive assessed 06/30/23 11/05/23 11:34 Currently or been in a relationship where the following occur: I choose not to answer Const General: cooperative, comfortable and no acute distress Orientation/consciousness: patient oriented x3 HENMT Head: Yes normocephalic and Yes atraumatic Eyes General: appearance normal, both eyes and all related structures Pupils: Equal, round and reactive pupils present EOM: EOMs intact bilaterally Neck Neck: Yes supple and No lymphadenopathy Thyroid: Thyroid normal Lymphatic: no lymphadenopathy noted Resp Effort & Inspection: normal respiratory effort and able to speak in complete sentences Auscultation: clear to auscultation bilaterally Cardio Heart sounds: S1 normal heart sound present and S2 normal heart sound present GI Auscultation: normal bowel sounds Skin General skin exam: elasticity normal and turgor normal Neuro General: patient oriented x3 Cranial nerves: Yes Equal, round and reactive pupils present Speech: No Abnormal speech present Extrem Other: 1+ pitting edema bilateral ankle General: Yes normal exam except as noted Assessment and Plan Assessment & Plan (1) Encounter for general adult medical examination with abnormal findings: Code(s): Z00.01 - Encounter for general adult medical examination with abnormal findings (2) Hypertension, essential: Code(s): I10 - Essential (primary) hypertension (3) Lipid disorder: Code(s): E78.9 - Disorder of lipoprotein metabolism, unspecified (4) Morbid obesity: Code(s): E66.01 - Morbid (severe) obesity due to excess calories (5) Vitamin D deficiency: Code(s): E55.9 - Vitamin D deficiency, unspecified (6) Impaired fasting blood sugar: Code(s): R73.01 - Impaired fasting glucose Plan Patient is 62-year-old female came today for physical examination Only medication from this office is lisinopril and simvastatin Blood pressure is well-controlled patient is tolerating both medications no side effects Lab order placed to be done fasting She is on B12 and vitamin-D supplement Patient have a history of full hysterectomy due to heavy menstrual cycles Colonoscopy was in 2018 next 1 will be in 2027 She has appointment coming up for mammogram at [facility] Patient is prediabetic, controlling diet She is also morbidly obese and have chronic lymphedema bilateral She goes to pain management for hip Patient was unable to get on examination table today. Follow-up six-month physical exam 1 year Orders: Orders Complete Blood Count Auto Diff Today E55.9 - Vitamin D deficiency, unspecified, E66.01 - Morbid (severe) obesity due to excess calories, E78.9 - Disorder of lipoprotein metabolism, unspecified, I10 - Essential (primary) hypertension, Z00.01 - Encounter for general adult medical examination with abnormal findings Comprehensive [place]. Panel Fast Today E55.9 - Vitamin D deficiency, unspecified, E66.01 - Morbid (severe) obesity due to excess calories, E78.9 - Disorder of lipoprotein metabolism, unspecified, I10 - Essential (primary) hypertension, Z00.01 - Encounter for general adult medical examination with abnormal findings TSH reflex Free T4 Today E55.9 - Vitamin D deficiency, unspecified, E66.01 - Morbid (severe) obesity due to excess calories, E78.9 - Disorder of lipoprotein metabolism, unspecified, I10 - Essential (primary) hypertension, Z00.01 - Encounter for general adult medical examination with abnormal findings Vitamin D 25-OH (D2 and D3) Today E55.9 - Vitamin D deficiency, unspecified, E66.01 - Morbid (severe) obesity due to excess calories, E78.9 - Disorder of lipoprotein metabolism, unspecified, I10 - Essential (primary) hypertension, Z00.01 - Encounter for general adult medical examination with abnormal findings Hemoglobin A1c Today E55.9 - Vitamin D deficiency, unspecified, E66.01 - Morbid (severe) obesity due to excess calories, E78.9 - Disorder of lipoprotein metabolism, unspecified, I10 - Essential (primary) hypertension, Z00.01 - Encounter for general adult medical examination with abnormal findings Lipid Panel Today E55.9 - Vitamin D deficiency, unspecified, E66.01 - Morbid (severe) obesity due to excess calories, E78.9 - Disorder of lipoprotein metabolism, unspecified, I10 - Essential (primary) hypertension, Z00.01 - Encounter for general adult medical examination with abnormal findings Vitamin B12 Today E55.9 - Vitamin D deficiency, unspecified, E66.01 - Morbid (severe) obesity due to excess calories, E78.9 - Disorder of lipoprotein metabolism, unspecified, I10 - Essential (primary) hypertension, Z00.01 - Encounter for general adult medical examination with abnormal findings Coding Level of Care Code Est Pt Level 3 (03548) Est Pt Prev Care 40-64y(89605) Diagnoses Encounter for general adult medical examination with abnormal findings Z00.01 Hypertension, essential I10 Lipid disorder E78.9 Morbid obesity E66.01 Vitamin D deficiency E55.9 Impaired fasting blood sugar R73.01 Additional Codes BONG-7 Assessment Billing - BONG-7 Assessment Tool: BONG-7 Assessment 67107 ([id number])
== END 2023-11-05 11:50 | disposition home or self-care (01) ==
PROVIDERS: PCP Internal Medicine; Visit Provider Internal Medicine
DX: Z00.00 Encounter for general adult medical examination without abnormal findings (principal); E66.01 Morbid (severe) obesity due to excess calories; Z68.42 Body mass index [BMI] 45.0-49.9, adult; I10 Essential (primary) hypertension; E78.9 Disorder of lipoprotein metabolism, unspecified; E55.9 Vitamin D deficiency, unspecified; R73.01 Impaired fasting glucose

== ENCOUNTER → 2023-11-05 11:31 | Outpatient (BNVA) | payer OTHER, SELFPAY | PROVIDERS: PCP Internal Medicine; Visit Provider Internal Medicine | DX: Z00.01 Encounter for general adult medical examination with abnormal findings (principal); I10 Essential (primary) hypertension; E78.9 Disorder of lipoprotein metabolism, unspecified; E66.01 Morbid (severe) obesity due to excess calories; E55.9 Vitamin D deficiency, unspecified; R73.01 Impaired fasting glucose | CPT/HCPCS: 96127 ==

== ENCOUNTER → 2023-11-25 11:36 | Outpatient (RCR) | payer OTHER, SELFPAY ==
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
--- NOTE | 2021-07-18 12:58 | MHC.PT.DC ---
[facility] [place] Office [place] Office [place] Office [address] Arslan Capps [address] [phone] F: [phone] F: [phone] F: [phone] F: [phone] Physical Therapy Discharge Report Diagnosis: This is a 60 yo female presenting to skilled PT with a script for OA of R hip Date of Surgery: Date of Evaluation: 04/14/21 Date of Discharge: 07/18/21 Treatments to Date: 10 Cancellations to Date: 0 No Shows to Date: 0 Discharge Status: Achieved Goals Improved Function Patient Elected to Stop Discharge Summary: Patient saw ortho, planning on TKR when she loses some weight, some time in august. She feels like she is capable of doing her exercises on her own at home and is ready for DC. Educated her on TKR process for rehab and HEP. She feels like her hip pain has improved and is ready for I with HEP. DC to HEP. Kept chart open for 30 days prior to DC. Electronically signed by: Ekta Moore PT Please sign and return to therapist. Thank you for your referral.
== END | disposition home or self-care (01) ==
LOC: HO.PTCHIC 04-14 10:50
PROVIDERS: PCP Internal Medicine; Visit Provider Physician Assistant
DX: M16.11 Unilateral primary osteoarthritis, right hip (principal)
CPT/HCPCS: 97110; 97162

== ENCOUNTER 2023-12-30 14:08 | Outpatient (AMB) | payer OTHER, SELFPAY ==
[2023-12-30 14:16] VITALS: BMI 46.3
--- NOTE | 2023-12-30 14:16 | MHC.OFFVIS ---
Vital Signs 12/30/23 14:16 Height 5 ft 4 in Weight 270 lb BMI 46.3 Intake Visit Reasons: OV- 06/29/23 R CAITLIN w/NE Intake Note: Suzi Bird is a 62 year old female who presents today for a post operative appointment s/p Right CAITLIN 06/29/23. Patient reports that she is doing well with no complaints. Allergies adhesive tape Allergy (Severe, Verified 11/05/23 11:32) Rash latex Allergy (Severe, Verified 11/05/23 11:32) Rash celecoxib [From Celebrex] Adverse Reaction (Severe, Verified 11/05/23 11:32) body rash HPI HPI OV- 06/29/23 R CAITLIN w/NE: Details: Suzi Bird is a 62 year old female who presents today for a post operative appointment s/p Right CAITLIN 06/29/23. Patient reports that she is doing well with no complaints. [facility], [facility] Medical History History of cardiac murmur as a child History of seizure Osteoarthritis of left knee Lumbar disc herniation Arthritis Glaucoma Morbid obesity Hyperlipidemia Hypertension Surgical History History of left knee replacement (~2021) Total knee replacement status Hx of colonoscopy History of ankle surgery H/O brain surgery Hx of hysterectomy Family History Father Dementia Cancer Mother Ovarian cancer Brother No problems noted. Brother No problems noted. Social History Household Members: None Housing: Assisted Are you a primary healthcare management to a significant other at home: No Do you presently have visiting nurse or other home services: No Alcohol intake: current Alcohol intake frequency: holidays/special occasions only Patient Tobacco Use Status: Never used Tobacco e-Cigarette/Vaping Use: Never Used service: No Current occupational status: disabled Current occupation: Rt handed Cognitive needs: No Hearing needs: No Vision needs: No Physical Exam Vital Signs: BMI result Body Mass Index 46.3 Extrem Other: Walking extremely well. No pain with hip range of motion. Assessment & Plan Assessment & Plan (1) Status post total hip replacement, right: Code(s): Z96.641 - Presence of right artificial hip joint Category: Surgical Plan: And Marge is doing well. She has no pain and no complaints. Mood strengthening exercises with her. She may return to see me as needed but no intervention warranted at this time. Coding Level of Care Code Est Pt Level 3 (71105) Diagnoses Status post total hip replacement, right Z96.641
== END 2023-12-30 15:23 | disposition home or self-care (01) ==
PROVIDERS: PCP Internal Medicine; Visit Provider Orthopaedic Surgery
DX: Z47.1 Aftercare following joint replacement surgery (principal); Z96.641 Presence of right artificial hip joint
CPT/HCPCS: 99212

== ENCOUNTER → 2023-12-30 14:08 | Outpatient (BNVA) | payer OTHER, SELFPAY | PROVIDERS: PCP Internal Medicine; Visit Provider Orthopaedic Surgery | DX: Z96.641 Presence of right artificial hip joint (principal) | CPT/HCPCS: 99212 ==

== ENCOUNTER → 2024-02-03 08:29 | Outpatient (BNVA) | payer OTHER, SELFPAY | PROVIDERS: PCP Internal Medicine; Visit Provider Internal Medicine ==

== ENCOUNTER 2024-02-03 08:30 | Outpatient (AMB) | payer OTHER, SELFPAY ==
--- NOTE | 2024-02-03 08:30 | A.OFFPC_ITS ---
Intake Visit Reasons: Requesting Housing Letter Allergies adhesive tape Allergy (Severe, Verified 11/05/23 11:32) Rash latex Allergy (Severe, Verified 11/05/23 11:32) Rash celecoxib [From Celebrex] Adverse Reaction (Severe, Verified 11/05/23 11:32) body rash Tobacco use date assessed: 11/05/23 Dental Screening Dental Screen Date: 11/05/23 [facility] Medical History History of cardiac murmur as a child History of seizure Osteoarthritis of left knee Lumbar disc herniation Arthritis Glaucoma Morbid obesity Hyperlipidemia Hypertension Surgical History History of left knee replacement (~2021) Total knee replacement status Hx of colonoscopy History of ankle surgery H/O brain surgery Hx of hysterectomy Family History Father Dementia Cancer Mother Ovarian cancer Brother No problems noted. Brother No problems noted. Social History Household Members: None Housing: Skilled Nursing Are you a primary acute care nurse practitioner to a significant other at home: No Do you presently have visiting nurse or other home services: No Alcohol intake: current Alcohol intake frequency: holidays/special occasions only Patient Tobacco Use Status: Never used Tobacco e-Cigarette/Vaping Use: Never Used service: No Current occupational status: disabled Current occupation: Rt handed Cognitive needs: No Hearing needs: No Vision needs: No Questionnaire Thrive Questionnaire Date Thrive assessed: 11/05/23 I am a: Patient What is your living situation today?: I have a steady place to live Within the past 12 months, did the food you bought not last and you didn't have the money to get more?: Often true Within the past 12 months, did you worry whether your food would run out before you got money to buy more?: I choose not to answer this question Do you have trouble paying for medicines?: No Do you have trouble getting transportation to medical appointments?: No Do you have trouble paying your heating and electricity bill?: I choose not to answer this question Do you have trouble taking care of your child, family member or friend?: I choose not to answer this question Do you have trouble with day-to-day activities such as bathing, preparing meals, shopping, managing finances, etc.?: I choose not to answer this question Are you interested in more education?: I choose not to answer this question Please select the resources that you would like help with: None Currently or been in a relationship where the following occur: I choose not to answer THRIVE Score: 1 BONG-7 AMB Questionnaire BONG-7 Date BONG - 7 assessed: 11/05/23 Source: Developed by Drs. Manolo Hastings, Veronica Romo, Ferny Ma and colleagues, with an educational presley from [employer]. Physical exam (Primary Care) Tobacco/Smoking Status: Tobacco use Status Tobacco use date assessed 11/05/23 11/05/23 11:34 Patient Tobacco Use Status Never used Tobacco 11/05/23 11:34 e-Cigarette/Vaping Use Never Used 11/05/23 11:34 Thrive Assessment: Date of Thrive Assessment Date Thrive assessed 11/05/23 12/23/23 12:07 Currently or been in a relationship where the following occur: I choose not to answer Coding
--- NOTE | 2024-02-03 08:41 | A.OFFPC_ITS ---
Intake Visit Reasons: Requesting Housing Letter Allergies adhesive tape Allergy (Severe, Verified 11/05/23 11:32) Rash latex Allergy (Severe, Verified 11/05/23 11:32) Rash celecoxib [From Celebrex] Adverse Reaction (Severe, Verified 11/05/23 11:32) body rash Medication List - Last Reconciled 02/04/24 by Luna Marino MD acetaminophen 650 mg (2 x 325 mg) PO Q6H PRN 30 days cholecalciferol (vitamin D3) (Vitamin D3) 25 mcg PO DAILY cyanocobalamin (vitamin B-12) (Vitamin B-12) 1,000 mcg PO 3XW latanoprost 0.005% 1 drp ophthalmic-Left BEDTIME [Lift recliner As directed] lisinopril 40 mg PO DAILY 90 days [Rollator walker As directed] Shower Chair As directed simvastatin 20 mg PO BEDTIME timolol maleate 0.5% 1 drp ophthalmic (eye) DAILY tizanidine 2 mg PO BID PRN [toilet seat riser As directed] Tobacco use date assessed: 11/05/23 Dental Screening Dental Screen Date: 11/05/23 HPI Requesting Housing Letter HPI Details Chief Complaint The patient reports significant noise disturbances from a neighbor impacting daily life. History of Present Illness The patient is a 63-year-old female presenting with a request for early childhood educator aide due to repetitive noise disturbances caused by a neighbor. The patient reports that the neighbor, who has resided next door for approximately three years, engages in activities that generate considerable noise, including banging on the escobar and running water, which causes vibrations felt in the patient's living space. These disturbances occur primarily during the night as the neighbor sleeps during the day, compelling the patient to confine herself to her bedroom to avoid the noise within the living room area. The living room is situated adjacent to the neighbor?s kitchen, where the disturbances are most prominent. The patient has filed approximately 25 complaints with housing authorities, but no resolution has been achieved. Consequently, the patient is seeking social and environmental modification through a transfer. The patient intends to acquire documentation to support her transfer request and is coordinating this effort alongside completing blood work. Review of Systems - Neurological: Reports disturbed sleep due to noise from neighbor. - Environmental/Social: Reports living w ith noise disturbance and resultant confinement to bedroom. Constitutional: No fever no chills Respiratory: no Cough, no shortness a breath Cardiovascular: no palpitations, no chest pains gastrointestinal: No nausea no vomiting no diarrhea REHABILITATION CONSULTANT: No headache no blurring of vision skin: No rash back: No CVAT extremities: As per history Plan - Prepare a formal letter documenting e patient's request for a housing transfer due to the noise disturbances impacting her daily life. The letter will be ready by Wednesday. - Encourage the patient to coordinate e retrieval of the letter with her planned blood work. [facility] Medical History History of cardiac murmur as a child History of seizure Osteoarthritis of left knee Lumbar disc herniation Arthritis Glaucoma Morbid obesity Hyperlipidemia Hypertension Surgical History History of left knee replacement (~2021) Total knee replacement status Hx of colonoscopy History of ankle surgery H/O brain surgery Hx of hysterectomy Family History Father Dementia Cancer Mother Ovarian cancer Brother No problems noted. Brother No problems noted. Social History Household Members: None Housing: [facility] Are you a primary day care assistant to a significant other at home: No Do you presently have visiting nurse or other home services: No Alcohol intake: current Alcohol intake frequency: holidays/special occasions only Patient Tobacco Use Status: Never used Tobacco e-Cigarette/Vaping Use: Never Used service: No Current occupational status: disabled Current occupation: Rt handed Cognitive needs: No Hearing needs: No Vision needs: No Questionnaire Thrive Questionnaire Date Thrive assessed: 11/05/23 I am a: Patient What is your living situation today?: I have a steady place to live Within the past 12 months, did the food you bought not last and you didn't have the money to get more?: Often true Within the past 12 months, did you worry whether your food would run out before you got money to buy more?: I choose not to answer this question Do you have trouble paying for medicines?: No Do you have trouble getting transportation to medical appointments?: No Do you have trouble paying your heating and electricity bill?: I choose not to answer this question Do you have trouble taking care of your child, family member or friend?: I choose not to answer this question Do you have trouble with day-to-day activities such as bathing, preparing meals, shopping, managing finances, etc.?: I choose not to answer this question Are you interested in more education?: I choose not to answer this question Please select the resources that you would like help with: None Currently or been in a relationship where the following occur: I choose not to answer THRIVE Score: 1 BONG-7 AMB Questionnaire BONG-7 Date BONG - 7 assessed: 11/05/23 Source: Developed by Drs. Manolo Hastings, Veronica Romo, Ferny Ma and colleagues, with an educational presley from [employer]. Physical exam (Primary Care) Tobacco/Smoking Status: Tobacco use Status Tobacco use date assessed 11/05/23 02/03/24 09:28 Patient Tobacco Use Status Never used Tobacco 02/03/24 09:28 e-Cigarette/Vaping Use Never Used 02/03/24 09:28 Thrive Assessment: Date of Thrive Assessment Date Thrive assessed 11/05/23 02/03/24 09:28 Currently or been in a relationship where the following occur: I choose not to answer Telehealth Telehealth Telehealth Platform: [facility] [facility] Location of provider rendering services: practice address Location of patient: address on file Patient Identification confirmed using: Name, : Yes Telehealth method: voice only Patient verbally consented to treatment: Yes Patient verbally consented to billing insurance company: Yes Patient informed of any privacy concerns related to visit: Yes Minutes spent on Phone/Video with Pt.: 13 Coding Level of Care Code Tele Est Pt Level 3 (07723) Diagnoses Stress F43.9 Housing problems Z59.9 Assessment & Plan Assessment & Plan (1) Stress: Code(s): F43.9 - Reaction to severe stress, unspecified Category: Medical (2) Housing problems: Code(s): Z59.9 - Problem related to housing and economic circumstances, unspecified Category: Social Hx Plan Chief Complaint The patient reports significant noise disturbances from a neighbor impacting daily life. History of Present Illness The patient is a 63-year-old female presenting with a request for early childhood educator aide due to repetitive noise disturbances caused by a neighbor. The patient reports that the neighbor, who has resided next door for approximately three years, engages in activities that generate considerable noise, including banging on the escobar and running water, which causes vibrations felt in the patient's living space. These disturbances occur primarily during the night as t he neighbor sleeps during the day, compelling the patient to confine herself to her bedroom to avoid the noise within the living room area. The living room is situated adjacent to the neighbor?s kitchen, where the disturbances are most prominent. The patient has filed approximately 25 complaints with housing authorities, but no resolution has been achieved. Consequently, the patient is seeking social and environmental modification through a transfer. The patient intends to acquire documentation to support her transfer request and is coordinating this effort alongside completing blood work. Review of Systems - Neurological: Reports disturbed sleep due to noise from neighbor. - Environmental/Social: Reports living with noise disturbance and resultant confinement to bedroom. Constitutional: No fever no chills Respiratory: no Cough, no shortness a breath Cardiovascular: no palpitations, no chest pains gastrointestinal: No nausea no vomiting no diarrhea REHABILITATION CONSULTANT: No headache no blurring of vision skin: No rash back: No CVAT extremities: As per history Plan - Prepare a formal letter documenting the patient's request for a housing transfer due to the noise disturbances impacting her daily life. The letter will be ready by Wednesday. - Encourage the patient to coordinate the retrieval of the letter with her planned blood work.
== END 2024-02-03 11:19 | disposition home or self-care (01) ==
PROVIDERS: PCP Internal Medicine; Visit Provider Internal Medicine
DX: F43.9 Reaction to severe stress, unspecified (principal); Z59.9 Problem related to housing and economic circumstances, unspecified

== ENCOUNTER 2024-03-28 10:11 | Outpatient (REF) | payer OTHER, SELFPAY ==
[2024-03-28 13:03] LABS: MANUAL DIFF FLAG NO
[2024-03-28 13:22] LABS: Basophils Absolute Auto 0.1 X10*3/uL (0.0-0.2); Basophils Percent Auto 1.6 % (0-2); Eosinophils Absolute Auto 0.2 X10*3/uL (0.0-0.4); Eosinophils Percent Auto 4.2 % (0-4); Estimated Average Glucose 117 mg/dL; Hematocrit 41.5 % (37.0-47.0); Hemoglobin 13.3 g/dl (12.0-16.0); Hemoglobin A1C 135.6301 umol/L; Hemoglobin A1c % 5.7 % (<6.0); Imm Gran Abs Auto 0.03 X10*3/uL (0.00-0.03); Imm Gran Pct Auto 0.5 % (0.0-0.4); Lymphocytes Absolute Auto 1.5 X10*3/uL (1.2-4.9); Lymphocytes Percent Auto 27.7 % (20-40); Mean Corpuscular Volume 90.4 fL (80.0-98.0); Mean Platelet Volume 11.4 fL (9.4-12.3); Monocytes Absolute Auto 0.4 X10*3/uL (0.1-1.2); Neutrophils Absolute Auto 3.2 x10*3/uL (2.0-8.3); Platelet Count 319 X10*3/uL (160-400); Red Blood Count 4.59 X10*6/uL (4.20-5.50); Red Cell Distribution Width 13.4 % (11.0-16.0); White Blood Count 5.5 X10*3/uL (4.8-10.8)
[2024-03-28 13:40] LABS: Alanine Aminotransferase 21 U/L (0-31); Albumin Level 3.8 g/dL (3.5-5.0); Alkaline Phosphatase 104 U/L (39-117); Anion Gap 10 (12-20); Aspartate Amino Transferase 24 U/L (5-31); Bilirubin Total 0.7 mg/dL (0.0-1.0); Blood Urea Nitrogen 15 mg/dL (9-16); Carbon Dioxide 24 mmol/L (22-29); Chloride 111 mmol/L (96-108); Cholesterol 140 mg/dL (<200); Estimated Glomerular Filt Rate > 60; Glucose Fasting 104 mg/dL (60-99); HDL Cholesterol 39 mg/dL (>40); LDL Cholesterol Calculated 83 mg/dL (<100); Potassium 4.3 mmol/L (3.3-5.1); Sodium 141 mmol/L (135-145); Total Protein 7.7 g/dL (6.5-8.0); Triglycerides 93 mg/dL (<150)
[2024-03-28 13:57] LABS: TSH reflex Free T4 4.69 uIU/mL (0.32-4.0)
[2024-03-28 13:58] LABS: Vitamin B12 1446 pg/mL (200-900)
[2024-03-28 15:51] LABS: Free T4 (Free Thyroxine) 0.99 ng/dL (0.71-1.85)
[2024-04-01 17:19] LABS: Vitamin D 25-OH, D2 <4 ng/mL; Vitamin D 25-OH, D3 36 ng/mL; Vitamin D 25-OH, Total 36 ng/mL (30-100)
== END 2024-03-28 10:12 | disposition home or self-care (01) ==
LOC: HO.HMGCLDS 10:11
PROVIDERS: PCP Internal Medicine; Visit Provider Internal Medicine
DX: Z00.01 Encounter for general adult medical examination with abnormal findings (principal); E55.9 Vitamin D deficiency, unspecified; I10 Essential (primary) hypertension; E66.01 Morbid (severe) obesity due to excess calories; E78.9 Disorder of lipoprotein metabolism, unspecified; Z13.1 Encounter for screening for diabetes mellitus
CPT/HCPCS: 36415; 80053; 80061; 82306; 82607; 83036; 84439; 84443; 85025

== ENCOUNTER 2024-05-02 12:42 | Outpatient (AMB) | payer OTHER, SELFPAY ==
[2024-05-02 12:46] VITALS: BP 122/62; PULSE 86; TEMP 36.6; O2SAT 97; BMI 45.3
--- NOTE | 2024-05-02 12:46 | A.OFFPC_ITS ---
Vital Signs 05/02/24 12:46 Height 5 ft 4 in Weight 264 lb BMI 45.3 BP 122/62 Blood Pressure Location Lt brachial Position Sitting Pulse 86 Pulse Source Pulse Oximeter Temp 97.8 F Temp Source Oral Pulse Oximetry (%) 97 Oxygen Delivery Method Room Air Intake Visit Reasons: 6 month follow up Senior Technical Editor Required: No Accompanied by: Self / Same As Patient Allergies adhesive tape Allergy (Severe, Verified 05/02/24 12:47) Rash latex Allergy (Severe, Verified 05/02/24 12:47) Rash celecoxib [From Celebrex] Adverse Reaction (Severe, Verified 05/02/24 12:47) body rash Medication List - Last Reconciled 05/02/24 by Luna Marino MD acetaminophen 650 mg (2 x 325 mg) PO Q6H PRN 30 days cholecalciferol (vitamin D3) (Vitamin D3) 25 mcg PO DAILY cyanocobalamin (vitamin B-12) (Vitamin B-12) 1,000 mcg PO 3XW latanoprost 0.005% 1 drp ophthalmic-Left BEDTIME [Lift recliner As directed] lisinopril 40 mg PO DAILY 90 days [Rollator walker As directed] Shower Chair As directed simvastatin 20 mg PO BEDTIME timolol maleate 0.5% 1 drp ophthalmic (eye) DAILY [toilet seat riser As directed] Tobacco use date assessed: 05/02/24 Dental Screening Dental Screen Date: 05/02/24 Did you have a dental visit in the last 12 months?: Yes Did you have a dental problem in the last 6 months where you did not have access to dental care?: No Was dental information given to patient?: Patient has dentist HPI 6 month follow up HPI Details History - The patient is a 63-year-old female pr esenting for a regular follow-up. - Hemoglobin has normalized; past noted low levels corrected. - Reports of well-controlled blood press ure and cholesterol levels. - Fasting sugar level at 104, with A1c a t 5.7, confirming pre diabetes - Elevated vitamin B12 levels at 1400, l ikely due to supplemental intake. - Elevated TSH of 4.69, pending further testing for potential hypothyroidism. - Social environment affected by neighbo r noise, pending athletic coach. Problem List - Hypertension - Hyperlipidemia - pre diabetes - Elevated Vitamin B12 Levels - Possible Hypothyroidism (elevated TSH) - Noise Disturbance from Neighbor (socia l/home environment issue) - morbid obesity Patient Instructions - Discontinue vitamin B12 supplementatio n as levels are markedly elevated. - Undergo thyroid function testing witho ut fasting requirement to confirm potential hypothyroidism. - Continue current medications: lisinopr il 40 mg and simvastatin 20 mg. - Return for follow-up appointment in [facility], - Attend laboratory testing today if martín ilable. - Seek a quieter living environment to r educe stress induced by current housing situation. Review of Systems - General: No fever no chills - Neurological: No headaches no dizziness - Ear nose throat: No sore throat no hearing difficulty no ear pain - Cardiovascular: No syncope, no chest pain, no palpitations - Gastrointestinal: No nausea vomiting or diarrhea - Endocrine: No polyuria polydipsia no heat intolerance - Genitourinary: No dysuria , no blood in urine Physical Exam - General: No acute distress - HEENT: No acute findings - Neck: Supple - Respiratory system: Able to talk in f ull sentences, no audible wheeze - cardiovascular: S1-S2 regular in rat e and rhythm - Gastrointestinal: No pain - Extremities: No new findings - COMMUTATOR TESTER: Alert awake oriented x3 motor se nsory intact - Skin: Normal turgor PFSH Medical History History of cardiac murmur as a child History of seizure Osteoarthritis of left knee Lumbar disc herniation Arthritis Glaucoma Morbid obesity Hyperlipidemia Hypertension Surgical History History of left knee replacement (~2021) Total knee replacement status Hx of colonoscopy History of ankle surgery H/O brain surgery Hx of hysterectomy Family History Father Dementia Cancer Mother Ovarian cancer Brother No problems noted. Brother No problems noted. Social History Household Members: None Housing: [facility] Are you a primary healthcare sales representative to a significant other at home: No Do you presently have visiting nurse or other home services: No Alcohol intake: current Alcohol intake frequency: holidays/special occasions only Patient Tobacco Use Status: Never used Tobacco e-Cigarette/Vaping Use: Never Used service: No Current occupational status: disabled Current occupation: Rt handed Cognitive needs: No Hearing needs: No Vision needs: No Questionnaire PHQ-9 Over the last 2 weeks, how often have you been bothered by any of the following problems? 1. Little interest or pleasure in doing things: not at all 2. Feeling down, depressed, or hopeless: not at all 3. Trouble falling or staying asleep, or sleeping too much: not at all 4. Feeling tired or having little energy: not at all 5. Poor appetite or overeating: not at all 6. Feeling bad about yourself - or that you are a failure or have let yourself or your family down: not at all 7. Trouble concentrating on things, such as reading the newspaper or watching television: not at all 8. Moving or speaking so slowly that other people could have noticed. Or the opposite - being so fidgety or restless that you have been moving around a lot more than usual: not at all 9. Thoughts that you would be better off or of hurting yourself in some way: not at all Total score: 0 Depression Screening Interpretation: Negative Depression Screening Done: Yes 32030 - PHQ-9 Billing: Yes Source: Developed by Drs. Manolo Hastings, Veronica Romo, Ferny Ma and colleagues, with an educational presley from [employer]. Thrive Questionnaire Date Thrive assessed: 04/25/24 I am a: Patient What is your living situation today?: I have a steady place to live Within the past 12 months, did the food you bought not last and you didn't have the money to get more?: Never true Within the past 12 months, did you worry whether your food would run out before you got money to buy more?: Never true Do you have trouble paying for medicines?: No Do you have trouble getting transportation to medical appointments?: No Do you have trouble paying your heating and electricity bill?: No Do you have trouble taking care of your child, family member or friend?: No Do you have trouble with day-to-day activities such as bathing, preparing meals, shopping, managing finances, etc.?: No Are you currently unemployed and looking for a job?: No Are you interested in more education?: No Please select the resources that you would like help with: None Currently or been in a relationship where the following occur: I choose not to answer THRIVE Score: 0 AUDIT C Alcohol Use Questionnaire (AUDIT-C) 1. How often do you have a drink containing alcohol?: Monthly or less 2. How many drinks containing alcohol do you have on a typical day when you are drinking?: 1 or 2 3. How often do you have six or more drinks on one occasion?: Never Total Score: 1 Score Reviewed/Action Taken: Yes BONG-7 AMB Questionnaire BONG-7 Date BONG - 7 assessed: 05/02/24 Feeling nervous, anxious, or on edge: 0 = Not at all Not being able to stop or control worryin = Not at all Worrying too much about different things: 0 = Not at all Trouble relaxin = Not at all Being so restless that it is hard to sit still: 0 = Not at all Becoming easily annoyed or irritable: 0 = Not at all Feeling afraid as if something awful might happen: 0 = Not at all Total BONG-7 score (0-4 normal; 5-9 mild; 10-14 moderate; 15-21 severe): 0 Source: Developed by Drs. Manolo Hastings, Veronica Romo, Ferny Ma and colleagues, with an educational presley from [employer]. BONG-7 Assessment Billing BONG-7 Assessment Tool: BONG-7 Assessment 02751 Physical exam (Primary Care) Vital Signs: Last Vital Signs Temp 97.8 F 05/02/24 12:46 Pulse 86 05/02/24 12:46 BP 122/62 05/02/24 12:46 Pulse Ox 97 05/02/24 12:46 Oxygen Delivery Method Room Air 05/02/24 12:46 BMI result Body Mass Index 45.3 Tobacco/Smoking Status: Tobacco use Status Tobacco use date assessed 05/02/24 05/02/24 12:48 Patient Tobacco Use Status Never used Tobacco 05/02/24 12:48 e-Cigarette/Vaping Use Never Used 05/02/24 12:48 PHQ-9: PHQ-9 Score PHQ-9: Total score 0 05/02/24 13:11 Depression Screening Interpretation: Negative Thrive Assessment: Date of Thrive Assessment Date Thrive assessed 04/25/24 05/02/24 12:48 Currently or been in a relationship where the following occur: I choose not to answer Coding Level of Care Code Est Pt Level 4 (99441) Complex EM visit Add On G2211 Diagnoses Elevated TSH R79.89 Hypertension, essential I10 Impaired fasting blood sugar R73.01 Elevated vitamin B12 level R79.89 Morbid obesity E66.01 Additional Codes BONG-7 Assessment Billing - BONG-7 Assessment Tool: BONG-7 Assessment 97083 ([id number]) PHQ-9 - 83792 - PHQ-9 Billing: Yes ([id number]) Assessment & Plan Assessment & Plan (1) Elevated TSH: Code(s): R79.89 - Other specified abnormal findings of blood chemistry Category: Medical (2) Hypertension, essential: Code(s): I10 - Essential (primary) hypertension Category: Medical (3) Impaired fasting blood sugar: Code(s): R73.01 - Impaired fasting glucose Category: Medical (4) Elevated vitamin B12 level: Code(s): R79.89 - Other specified abnormal findings of blood chemistry Category: Medical (5) Morbid obesity: Code(s): E66.01 - Morbid (severe) obesity due to excess calories Category: Medical Plan History - The patient is a 63-year-old female presenting for a regular follow-up. - Hemoglobin has normalized; past noted low levels corrected. - Reports of well-controlled blood pressure and cholesterol levels. - Fasting sugar level at 104, with A1c at 5.7, confirming pre diabetes - Elevated vitamin B12 levels at 1400, likely due to supplemental intake. - Elevated TSH of 4.69, pending further testing for potential hypothyroidism. - Social environment affected by neighbor noise, pending athletic coach. Problem List - Hypertension - Hyperlipidemia - pre diabetes - Elevated Vitamin B12 Levels - Possible Hypothyroidism (elevated TSH) - Noise Disturbance from Neighbor (social/home environment issue) - morbid obesity Patient Instructions - Discontinue vitamin B12 supplementation as levels are markedly elevated. - Undergo thyroid function testing without fasting requirement to confirm potential hypothyroidism. - Continue current medications: lisinopril 40 mg and simvastatin 20 mg. - Return for follow-up appointment in August, - Attend laboratory testing today if available. - Seek a quieter living environment to reduce stress induced by current housing situation. Orders: Orders TSH reflex Free T4 Today - Other specified abnormal findings of blood chemistry Vitamin B12 Today R79.89 - Other specified abnormal findings of blood chemistry Thyroglobulin Antibodies Today R79.89 - Other specified abnormal findings of blood chemistry
== END 2024-05-02 13:06 | disposition home or self-care (01) ==
LOC: HO.HMCC 12:42
PROVIDERS: PCP Internal Medicine; Visit Provider Internal Medicine
DX: R79.89 Other specified abnormal findings of blood chemistry (principal); E66.01 Morbid (severe) obesity due to excess calories; Z68.42 Body mass index [BMI] 45.0-49.9, adult; I10 Essential (primary) hypertension; R73.01 Impaired fasting glucose

== ENCOUNTER 2024-05-02 12:42 | Outpatient (REF) | payer OTHER, SELFPAY ==
[2024-05-02 17:26] LABS: TSH reflex Free T4 3.79 uIU/mL (0.32-4.0)
[2024-05-02 17:36] LABS: Vitamin B12 882 pg/mL (200-900)
[2024-05-03 17:04] LABS: Thyroglobulin Antibodies <1 IU/mL (< or = 1)
== END 2024-05-02 12:43 | disposition home or self-care (01) ==
LOC: HO.HMGCLDS 12:42
PROVIDERS: PCP Internal Medicine; Visit Provider Internal Medicine
DX: R79.89 Other specified abnormal findings of blood chemistry (principal); I10 Essential (primary) hypertension; R73.01 Impaired fasting glucose; E66.01 Morbid (severe) obesity due to excess calories; Z68.42 Body mass index [BMI] 45.0-49.9, adult; Z79.899 Other long term (current) drug therapy
CPT/HCPCS: 36415; 82607; 84443; 86800; 96127; 99212

== ENCOUNTER 2024-06-22 08:51 | Outpatient (AMB) | payer OTHER, SELFPAY ==
--- NOTE | 2024-06-22 09:04 | MHC.PC.OV ---
Intake Visit Reasons: Discuss Anxiety Allergies adhesive tape Allergy (Severe, Verified 06/22/24 09:04) Rash latex Allergy (Severe, Verified 06/22/24 09:04) Rash celecoxib [From Celebrex] Adverse Reaction (Severe, Verified 06/22/24 09:04) body rash Medication List - Last Reconciled 06/22/24 by Luna Marino MD acetaminophen 650 mg (2 x 325 mg) PO Q6H PRN 30 days cholecalciferol (vitamin D3) (Vitamin D3) 25 mcg PO DAILY cyanocobalamin (vitamin B-12) (Vitamin B-12) 1,000 mcg PO 3XW latanoprost 0.005% 1 drp ophthalmic-Left BEDTIME [Lift recliner As directed] lisinopril 40 mg PO DAILY 90 days [Rollator walker As directed] Shower Chair As directed simvastatin 20 mg PO BEDTIME timolol maleate 0.5% 1 drp ophthalmic (eye) DAILY [toilet seat riser As directed] Tobacco use date assessed: 06/22/24 Dental Screening Dental Screen Date: 06/22/24 Did you have a dental visit in the last 12 months?: No Did you have a dental problem in the last 6 months where you did not have access to dental care?: No Was dental information given to patient?: Patient has dentist HPI Discuss Anxiety HPI Details History - The patient is a 63-year-old female presenting with anxiety. - She describes significant tension and anxiety attributed to her current living situation. - The patient reports feelings of being tense when encountering individuals who engage in negative interactions with her. - She mentions sleep disturbances, including difficulty sleeping due to anxiety, with symptoms subsiding around 5:00 AM. - Her anxiety symptoms have intensified over the past couple of weeks. - She has experienced worsening of symptoms despite having support from a couple of close friends. Problem List - Anxiety Patient Instructions - Take the prescribed daily medication, starting with 5 mg of Escitalopram by splitting a 10 mg tablet in half as directed. - Monitor how you feel over the next few weeks and report any changes. - If symptoms persist or worsen, contact my office for a possible adjustment in medication dosage. - If you feel better with the daily medication, continue as advised. - For the first prescription, use the 30 tablets provided and contact me for refills should Escitalopram be effective for you. Review of Systems - General: No fever no chills - Neurological: No headaches no dizziness - Ear nose throat: No sore throat no hearing difficulty no ear pain - Cardiovascular: No syncope, no chest pain, no palpitations - Gastrointestinal: No nausea vomiting or diarrhea PFSH Medical History History of cardiac murmur as a child History of seizure Osteoarthritis of left knee Lumbar disc herniation Arthritis Glaucoma Morbid obesity Hyperlipidemia Hypertension Surgical History History of left knee replacement (~2021) Total knee replacement status Hx of colonoscopy History of ankle surgery H/O brain surgery Hx of hysterectomy Family History Father Dementia Cancer Mother Ovarian cancer Brother No problems noted. Brother No problems noted. Social History Household Members: None Housing: Residential Are you a primary day care home mother to a significant other at home: No Do you presently have visiting nurse or other home services: No Alcohol intake: current Alcohol intake frequency: holidays/special occasions only Patient Tobacco Use Status: Never used Tobacco e-Cigarette/Vaping Use: Never Used service: No Current occupational status: disabled Current occupation: [employer] handed Cognitive needs: No Hearing needs: No Vision needs: No Questionnaire Thrive Questionnaire Date Thrive assessed: 04/25/24 I am a: Patient What is your living situation today?: I have a steady place to live Within the past 12 months, did the food you bought not last and you didn't have the money to get more?: Never true Within the past 12 months, did you worry whether your food would run out before you got money to buy more?: Never true Do you have trouble paying for medicines?: No Do you have trouble getting transportation to medical appointments?: No Do you have trouble paying your heating and electricity bill?: No Do you have trouble taking care of your child, family member or friend?: No Do you have trouble with day-to-day activities such as bathing, preparing meals, shopping, managing finances, etc.?: No Are you currently unemployed and looking for a job?: No Are you interested in more education?: No Please select the resources that you would like help with: None Currently or been in a relationship where the following occur: I choose not to answer THRIVE Score: 0 BONG-7 AMB Questionnaire BONG-7 Date BONG - 7 assessed: 05/02/24 Source: Developed by Drs. Manolo Hastings, Veronica Romo, Ferny Ma and colleagues, with an educational presley from [employer]. Physical exam (Primary Care) Tobacco/Smoking Status: Tobacco use Status Tobacco use date assessed 06/22/24 06/22/24 09:07 Patient Tobacco Use Status Never used Tobacco 06/22/24 09:07 e-Cigarette/Vaping Use Never Used 06/22/24 09:07 Thrive Assessment: Date of Thrive Assessment Date Thrive assessed 04/25/24 06/22/24 09:07 Currently or been in a relationship where the following occur: I choose not to answer Telehealth Telehealth Telehealth Platform: [facility] Location of provider rendering services: practice address Location of patient: address on file Patient Identification confirmed using: Name, : Yes Telehealth method: voice only Patient verbally consented to treatment: Yes Patient verbally consented to billing insurance company: Yes Patient informed of any privacy concerns related to visit: Yes Minutes spent on Phone/Video with Pt.: 12 Coding Level of Care Code Tele Est Pt Level 3 (72565) Diagnoses Stress F43.9 Anxiety, generalized F41.1 Assessment & Plan Assessment & Plan (1) Stress: Code(s): F43.9 - Reaction to severe stress, unspecified Category: Medical (2) Anxiety, generalized: Code(s): F41.1 - Generalized anxiety disorder Category: Medical Plan History - The patient is a 63-year-old female presenting with anxiety. - She describes significant tension and anxiety attributed to her current living situation. - The patient reports feelings of being tense when encountering individuals who engage in negative interactions with her. - She mentions sleep disturbances, including difficulty sleeping due to anxiety, with symptoms subsiding around 5:00 AM. - Her anxiety symptoms have intensified over the past couple of weeks. - She has experienced worsening of symptoms despite having support from a couple of close friends. Problem List - Anxiety Patient Instructions - Take the prescribed daily medication, starting with 5 mg of Escitalopram by splitting a 10 mg tablet in half as directed. - Monitor how you feel over the next few weeks and report any changes. - If symptoms persist or worsen, contact my office for a possible adjustment in medication dosage. - If you feel better with the daily medication, continue as advised. - For the first prescription, use the 30 tablets provided and contact me for refills should Escitalopram be effective for you. Medications: New escitalopram oxalate (Lexapro) 10 mg PO DAILY 30 tabs 0RF
== END 2024-06-22 09:53 | disposition home or self-care (01) ==
LOC: HO.HMCC 08:51
PROVIDERS: PCP Internal Medicine; Visit Provider Internal Medicine
DX: F43.9 Reaction to severe stress, unspecified (principal); F41.1 Generalized anxiety disorder

== ENCOUNTER → 2024-06-22 08:51 | Outpatient (BNVA) | payer OTHER, SELFPAY | PROVIDERS: PCP Internal Medicine; Visit Provider Internal Medicine ==

== ENCOUNTER 2024-09-05 13:15 | Outpatient (AMB) | payer OTHER, SELFPAY ==
--- NOTE | 2024-09-05 13:19 | MHC.PC.OV ---
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 Accompanied by: Self / Same As Patient Allergies adhesive tape Allergy (Severe, Verified 09/05/24 13:20) Rash latex Allergy (Severe, Verified 09/05/24 13:20) Rash celecoxib (From Celebrex) Adverse Reaction (Severe, Verified 09/05/24 13:20) body rash Medication List - Last Reconciled 09/05/24 by Luna Marino MD acetaminophen 650 mg (2 x 325 mg) PO Q6H PRN 30 days cholecalciferol (vitamin D3) (Vitamin D3) 25 mcg PO DAILY escitalopram oxalate (Lexapro) 10 mg PO DAILY latanoprost 0.005% 1 drp ophthalmic-Left BEDTIME [Lift recliner As directed] lisinopril 40 mg PO DAILY 90 days [Rollator walker As directed] Shower Chair As directed simvastatin 20 mg PO BEDTIME timolol maleate 0.5% 1 drp ophthalmic (eye) DAILY [toilet seat riser As directed] Tobacco use date assessed: 06/22/24 Dental Screening Dental Screen Date: 06/22/24 HPI 4 month follow up HPI Details History - The patient is a 63 year old female presenting for a follow-up of hypertension and pre-diabetes. - Reported blood pressure was stable at 132/79 mmHg. - Previous hemoglobin levels had dropped post-surgery but normalized at 13.3 g/dL in recent labs from March. - Previous elevated B12 levels exceeded normal range but returned to 882 pg/mL after cessation of supplements. - Fasting blood glucose was recorded at 104 mg/dL, indicating pre-diabetic status. - Electrolytes, kidney function, and liver enzymes were previously noted as normal. - History of anxiety with reported improvement in mood. Medical History: - Hypertension - Pre-diabetes - Anxiety - Lipid disorder Medications: - Vitamin D supplementation - Lexapro for anxiety - Lisinopril for hypertension - Simvastatin (lipid management) - Eye drops (not specified) Social History: - Awaiting relocation to a different housing complex - Recently traveled to [place] for leisure with family Diagnostic Results: - Labs: - Hemoglobin: 13.3 g/dL (normal) - Fasting glucose: 104 mg/dL (pre-diabetic range) - Vitamin B12: initially high but normalized to 882 pg/mL Problem List - Essential Hypertension - Pre-diabetes - Anxiety - Lipid disorder - Morbid obesity with BMI 45 Patient Instructions - Return in a couple of days for fasting laboratory tests - Attend the rescheduled physical examination in four months - Maintain current medication regimen as all prescriptions are refilled Review of Systems - General: No fever no chills - Neurological: No headaches no dizziness - Ear nose throat: No sore throat no hearing difficulty no ear pain - Cardiovascular: No syncope, no chest pain, no palpitations - Gastrointestinal: No nausea vomiting or diarrhea - Endocrine: No polyuria polydipsia no heat intolerance - Genitourinary: No dysuria , no blood in urine Physical Exam General: No acute distress HEENT: No acute findings Neck: Supple Respiratory system: Able to talk in full sentences, no audible wheeze Cardiovascular: S1-S2 regular in rate and rhythm Gastrointestinal: No pain Extremities: No new findings, no swelling DIGITAL PRODUCTION ARTIST: Alert awake oriented x3 motor sensory intact Skin: Normal turgor [facility] Medical History History of cardiac murmur as a child History of seizure Osteoarthritis of left knee Lumbar disc herniation Arthritis Glaucoma Morbid obesity Hyperlipidemia Hypertension Surgical History History of left knee replacement (~2021) Total knee replacement status Hx of colonoscopy History of ankle surgery H/O brain surgery Hx of hysterectomy Family History Father Dementia Cancer Mother Ovarian cancer Brother No problems noted. Brother No problems noted. Social History Household Members: None Housing: [facility] Are you a primary care management associate to a significant other at home: No Do you presently have visiting nurse or other home services: No Alcohol intake: current Alcohol intake frequency: holidays/special occasions only Patient Tobacco Use Status: Never used Tobacco e-Cigarette/Vaping Use: Never Used service: No Current occupational status: disabled Current occupation: Rt handed Cognitive needs: No Hearing needs: No Vision needs: No Questionnaire Thrive Questionnaire Date Thrive assessed: 09/05/24 I am a: Patient What is your living situation today?: I have a steady place to live Within the past 12 months, did the food you bought not last and you didn't have the money to get more?: Never true Within the past 12 months, did you worry whether your food would run out before you got money to buy more?: Never true Do you have trouble paying for medicines?: No Do you have trouble getting transportation to medical appointments?: No Do you have trouble paying your heating and electricity bill?: No Do you have trouble taking care of your child, family member or friend?: No Do you have trouble with day-to-day activities such as bathing, preparing meals, shopping, managing finances, etc.?: No Are you currently unemployed and looking for a job?: No Are you interested in more education?: No Please select the resources that you would like help with: None Currently or been in a relationship where the following occur: I choose not to answer THRIVE Score: 0 BONG-7 AMB Questionnaire BONG-7 Date BONG - 7 assessed: 05/02/24 Source: Developed by Drs. Manolo Hastings, Veronica Romo, Ferny Ma and colleagues, with an educational presley from [employer]. Physical exam (Primary Care) Vital Signs: Last Vital Signs Temp 97.9 F 09/05/24 13:20 Pulse 82 09/05/24 13:20 BP 132/76 09/05/24 13:20 Pulse Ox 97 09/05/24 13:20 Oxygen Delivery Method Room Air 09/05/24 13:20 BMI result Body Mass Index 45.0 Tobacco/Smoking Status: Tobacco use Status Tobacco use date assessed 06/22/24 09/05/24 13:21 Patient Tobacco Use Status Never used Tobacco 09/05/24 13:21 e-Cigarette/Vaping Use Never Used 09/05/24 13:21 Thrive Assessment: Date of Thrive Assessment Date Thrive assessed 09/05/24 09/05/24 13:21 Currently or been in a relationship where the following occur: I choose not to answer Coding Level of Care Code Est Pt Level 4 (29989) Diagnoses Hypertension, essential I10 Anxiety, generalized F41.1 Impaired fasting blood sugar R73.01 Morbid obesity E66.01 Vitamin D deficiency E55.9 Elevated vitamin B12 level R79.89 Assessment & Plan Assessment & Plan (1) Hypertension, essential: Code(s): I10 - Essential (primary) hypertension Category: Medical (2) Anxiety, generalized: Code(s): F41.1 - Generalized anxiety disorder Category: Medical (3) Impaired fasting blood sugar: Code(s): R73.01 - Impaired fasting glucose Category: Medical (4) Morbid obesity: Code(s): E66.01 - Morbid (severe) obesity due to excess calories Category: Medical (5) Vitamin D deficiency: Code(s): E55.9 - Vitamin D deficiency, unspecified Category: Medical (6) Elevated vitamin B12 level: Code(s): R79.89 - Other specified abnormal findings of blood chemistry Category: Medical Plan History - The patient is a 63 year old female presenting for a follow-up of hypertension and pre-diabetes. - Reported blood pressure was stable at 132/79 mmHg. - Previous hemoglobin levels had dropped post-surgery but normalized at 13.3 g/dL in recent labs from March. - Previous elevated B12 levels exceeded normal range but returned to 882 pg/mL after cessation of supplements. - Fasting blood glucose was recorded at 104 mg/dL, indicating pre-diabetic status. - Electrolytes, kidney function, and liver enzymes were previously noted as normal. - History of anxiety with reported improvement in mood. Medical History: - Hypertension - Pre-diabetes - Anxiety - Lipid disorder Medications: - Vitamin D supplementation - Lexapro for anxiety - Lisinopril for hypertension - Simvastatin (lipid management) - Eye drops (not specified) Social History: - Awaiting relocation to a different housing complex - Recently traveled to [place] for leisure with family Diagnostic Results: - Labs: - Hemoglobin: 13.3 g/dL (normal) - Fasting glucose: 104 mg/dL (pre-diabetic range) - Vitamin B12: initially high but normalized to 882 pg/mL Problem List - Essential Hypertension - Pre-diabetes - Anxiety - Lipid disorder - Morbid obesity with BMI 45 Patient Instructions - Return in a couple of days for fasting laboratory tests - Attend the rescheduled physical examination in four months - Maintain current medication regimen as all prescriptions are refilled Orders: Orders Complete Blood Count Auto Diff Today E55.9 - Vitamin D deficiency, unspecified, E66.01 - Morbid (severe) obesity due to excess calories, F41.1 - Generalized anxiety disorder, I10 - Essential (primary) hypertension, R73.01 - Impaired fasting glucose, R79.89 - Other specified abnormal findings of blood chemistry Lipid Panel Today E55.9 - Vitamin D deficiency, unspecified, E66.01 - Morbid (severe) obesity due to excess calories, F41.1 - Generalized anxiety disorder, I10 - Essential (primary) hypertension, R73.01 - Impaired fasting glucose, R79.89 - Other specified abnormal findings of blood chemistry Vitamin D 25-OH (D2 and D3) Today E55.9 - Vitamin D deficiency, unspecified, E66.01 - Morbid (severe) obesity due to excess calories, F41.1 - Generalized anxiety disorder, I10 - Essential (primary) hypertension, R73.01 - Impaired fasting glucose, R79.89 - Other specified abnormal findings of blood chemistry Comprehensive [place]. Panel Fast Today E55.9 - Vitamin D deficiency, unspecified, E66.01 - Morbid (severe) obesity due to excess calories, F41.1 - Generalized anxiety disorder, I10 - Essential (primary) hypertension, R73.01 - Impaired fasting glucose, R79.89 - Other specified abnormal findings of blood chemistry Vitamin B12 Today E55.9 - Vitamin D deficiency, unspecified, E66.01 - Morbid (severe) obesity due to excess calories, F41.1 - Generalized anxiety disorder, I10 - Essential (primary) hypertension, R73.01 - Impaired fasting glucose, R79.89 - Other specified abnormal findings of blood chemistry TSH reflex Free T4 Today E55.9 - Vitamin D deficiency, unspecified, E66.01 - Morbid (severe) obesity due to excess calories, F41.1 - Generalized anxiety disorder, I10 - Essential (primary) hypertension, R73.01 - Impaired fasting glucose, R79.89 - Other specified abnormal findings of blood chemistry
[2024-09-05 13:20] VITALS: BP 132/76; PULSE 82; TEMP 36.6; O2SAT 97; BMI 45.0
== END 2024-09-05 13:39 | disposition home or self-care (01) ==
LOC: HO.HMCC 13:16
PROVIDERS: PCP Internal Medicine; Visit Provider Internal Medicine
DX: I10 Essential (primary) hypertension (principal); F41.1 Generalized anxiety disorder; E66.01 Morbid (severe) obesity due to excess calories; Z68.42 Body mass index [BMI] 45.0-49.9, adult; R73.01 Impaired fasting glucose; E55.9 Vitamin D deficiency, unspecified; R79.89 Other specified abnormal findings of blood chemistry

== ENCOUNTER → 2024-09-05 13:15 | Outpatient (BNVA) | payer OTHER, SELFPAY | PROVIDERS: PCP Internal Medicine; Visit Provider Internal Medicine | DX: I10 Essential (primary) hypertension (principal); F41.1 Generalized anxiety disorder; R73.01 Impaired fasting glucose; E66.01 Morbid (severe) obesity due to excess calories; E55.9 Vitamin D deficiency, unspecified; R79.89 Other specified abnormal findings of blood chemistry; Z68.42 Body mass index [BMI] 45.0-49.9, adult | CPT/HCPCS: 99212 ==

== ENCOUNTER 2024-09-20 13:19 | Outpatient (REF) | payer OTHER, SELFPAY ==
[2024-09-20 16:42] LABS: MANUAL DIFF FLAG NO
[2024-09-20 16:47] LABS: Hematocrit 40.7 % (37.0-47.0); Hemoglobin 13.5 g/dl (12.0-16.0); Imm Gran Abs Auto 0.02 X10*3/uL (0.00-0.03); Imm Gran Pct Auto 0.4 % (0.0-0.4); Lymphocytes Absolute Auto 1.6 X10*3/uL (1.2-4.9); Mean Corpuscular HGB Conc 33.2 g/dl (31.0-35.0); Mean Corpuscular Hemoglobin 30.0 pg (27.0-33.0); Mean Corpuscular Volume 90.4 fL (80.0-98.0); NRBC Abs Auto 0.000 X10*3/uL (0.0-0.012); NRBC Pct Auto 0.0 /100WBC (0.0-0.2); Platelet Count 291 X10*3/uL (160-400); Red Blood Count 4.50 X10*6/uL (4.20-5.50); White Blood Count 5.6 X10*3/uL (4.8-10.8)
[2024-09-20 17:10] LABS: Alanine Aminotransferase 23 U/L (0-31); Albumin Level 4.0 g/dL (3.5-5.0); Alkaline Phosphatase 100 U/L (39-117); Anion Gap 13 (12-20); Aspartate Amino Transferase 26 U/L (5-31); Blood Urea Nitrogen 17 mg/dL (9-16); Calcium 9.1 mg/dL (8.4-10.2); Carbon Dioxide 25 mmol/L (22-29); Chloride 109 mmol/L (96-108); Cholesterol 181 mg/dL (<200); Estimated Glomerular Filt Rate > 60; HDL Cholesterol 50 mg/dL (>40); Potassium 4.4 mmol/L (3.3-5.1); Sodium 143 mmol/L (135-145); Total Protein 7.3 g/dL (6.5-8.0); Triglycerides 72 mg/dL (<150)
[2024-09-20 17:30] LABS: Vitamin B12 427 pg/mL (200-900)
[2024-09-23 17:18] LABS: Vitamin D 25-OH, D2 <4 ng/mL; Vitamin D 25-OH, D3 33 ng/mL; Vitamin D 25-OH, Total 33 ng/mL (30-100)
== END 2024-09-20 13:20 | disposition home or self-care (01) ==
LOC: HO.HMGCLDS 13:19
PROVIDERS: PCP Internal Medicine; Visit Provider Internal Medicine
DX: I10 Essential (primary) hypertension (principal); F41.1 Generalized anxiety disorder; E66.01 Morbid (severe) obesity due to excess calories; E55.9 Vitamin D deficiency, unspecified; R73.01 Impaired fasting glucose; R79.89 Other specified abnormal findings of blood chemistry
CPT/HCPCS: 36415; 80053; 80061; 82306; 82607; 84443; 85025

== ENCOUNTER 2025-01-09 11:31 | Outpatient (AMB) | payer OTHER, SELFPAY ==
[2025-01-09 11:37] VITALS: BP 130/70; PULSE 82; O2SAT 97; BMI 46.2
--- NOTE | 2025-01-09 11:37 | A.OFFPC_ITS ---
Vital Signs 01/09/25 11:37 Height 5 ft 4 in Weight 269 lb BMI 46.2 BP 130/70 Blood Pressure Location Lt brachial Position Sitting Pulse 82 Pulse Source Pulse Oximeter Pulse Oximetry (%) 97 Intake Visit Reasons: Annual PE Allergies adhesive tape Allergy (Severe, Verified 01/09/25 11:39) Rash latex Allergy (Severe, Verified 01/09/25 11:39) Rash celecoxib (From Celebrex) Adverse Reaction (Severe, Verified 01/09/25 11:39) body rash Medication List - Last Reconciled 01/09/25 by Luna Marino MD acetaminophen 650 mg (2 x 325 mg) PO Q6H PRN 30 days cholecalciferol (vitamin D3) (Vitamin D3) 25 mcg PO DAILY escitalopram oxalate (Lexapro) 15 mg (1.5 x 10 mg) PO DAILY 90 days latanoprost 0.005% 1 drp ophthalmic-Left BEDTIME [Lift recliner As directed] lisinopril 40 mg PO DAILY 90 days [Rollator walker As directed] Shower Chair As directed simvastatin 20 mg PO BEDTIME timolol maleate 0.5% 1 drp ophthalmic (eye) DAILY [toilet seat riser As directed] Tobacco use date assessed: 06/22/24 Dental Screening Dental Screen Date: 06/22/24 HPI HPI Comments History of Present Illness Details History of Present Illness The patient is a 64 year old individual presenting for an annual physical examination and routine visit. Essential Hypertension: - The patient's blood pressure was 130/7 0 mmHg, which is stable and about the same as the last visit in August. - The patient is managed on lisinopril 4 0 mg. Hyperlipidemia: - The patient is managed on simvastatin 20 mg. - Lab work from September showed an LDL cho lesterol level of 117. Anxiety: - The patient is taking 1.5 tablets of L exapro, which is a good dose for the patient. 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 - The patient now reports being able to take care of themself and no longer requires a AUTO SPECIALTY SERVICES MANAGER. Health Maintenance: - The patient is scheduled for a mammogr am on January 16, which was rescheduled from a prior date due to a cold. - The patient's last colonoscopy was in 2017 and is due for the next one in 2027, based on a 10-year follow-up interval. - The patient no longer sees an TOE STRIPPER. - The patient declined the flu vaccine. Medical History: - Hypertension, managed with lisinopril. - Hyperlipidemia, managed with simvastat in. - Anxiety, managed with Lexapro. - Vitamin D deficiency, treated with vit celeset D supplements. Surgical History: - Hip replacement, status post Social History: - Housing: The patient is in the process of moving to a new apartment. - Functional Status: The patient sasha mejia had a personal lines appraiser (AUTO SPECIALTY SERVICES MANAGER) after a hip replacement but reports being independent with activities of daily living now. - The patient receives a laundry service . Health Maintenance - Mammogram: Scheduled for January 16. - Colonoscopy: Last performed in 2017, n ext due in 2027. - Vaccinations: Declined flu vaccine. - Laboratory studies: Labs from September ere stable and included a normal CBC, electrolytes, kidney function, liver enzymes, vitamin D, and thyroid function. LDL cholesterol was 117. - Gynecological care: No longer sees an TOE STRIPPER. [facility] Medical History History of cardiac murmur as a child History of seizure Osteoarthritis of left knee Lumbar disc herniation Arthritis Glaucoma Morbid obesity Hyperlipidemia Hypertension Surgical History History of left knee replacement (~2021) Total knee replacement status Hx of colonoscopy History of ankle surgery H/O brain surgery Hx of hysterectomy Family History Father Dementia Cancer Mother Ovarian cancer Brother No problems noted. Brother No problems noted. Social History Household Members: None Housing: Detention Are you a primary customer care consultant to a significant other at home: No Do you presently have visiting nurse or other home services: No Alcohol intake: current Alcohol intake frequency: holidays/special occasions only Patient Tobacco Use Status: Never used Tobacco e-Cigarette/Vaping Use: Never Used service: No Current occupational status: disabled Current occupation: [employer] handed Cognitive needs: No Hearing needs: No Vision needs: No Questionnaire Thrive Questionnaire Date Thrive assessed: 04/25/24 I am a: Patient What is your living situation today?: I have a steady place to live Within the past 12 months, did the food you bought not last and you didn't have the money to get more?: Never true Within the past 12 months, did you worry whether your food would run out before you got money to buy more?: Never true Do you have trouble paying for medicines?: No Do you have trouble getting transportation to medical appointments?: No Do you have trouble paying your heating and electricity bill?: No Do you have trouble taking care of your child, family member or friend?: No Do you have trouble with day-to-day activities such as bathing, preparing meals, shopping, managing finances, etc.?: No Are you currently unemployed and looking for a job?: No Are you interested in more education?: No Please select the resources that you would like help with: None Currently or been in a relationship where the following occur: I choose not to answer THRIVE Score: 0 BONG-7 AMB Questionnaire BONG-7 Date BONG - 7 assessed: 05/02/24 Source: Developed by Drs. Manolo Hastings, Veronica Romo, Ferny Ma and colleagues, with an educational presley from [employer]. Review of Systems Narrative Review of Systems - General: No fever no chills - Neurological: No headaches no dizziness - Ear nose throat: No sore throat no hearing difficulty no ear pain - Cardiovascular: No syncope, no chest pain, no palpitations - Gastrointestinal: No nausea vomiting or diarrhea - Endocrine: No polyuria polydipsia no heat intolerance - Genitourinary: No dysuria - Skin: No new complaints Physical exam (Primary Care) Vital Signs: Last Vital Signs Pulse 82 01/09/25 11:37 BP 130/70 01/09/25 11:37 Pulse Ox 97 01/09/25 11:37 BMI result Body Mass Index 46.2 Tobacco/Smoking Status: Tobacco use Status Tobacco use date assessed 06/22/24 01/09/25 11:39 Patient Tobacco Use Status Never used Tobacco 01/09/25 11:39 e-Cigarette/Vaping Use Never Used 01/09/25 11:39 Thrive Assessment: Date of Thrive Assessment Date Thrive assessed 04/25/24 01/09/25 11:39 Currently or been in a relationship where the following occur: I choose not to answer Narrative Diagnostic results - Vitals: Blood pressure 130/70 mmHg. - Labs (from September): CBC, electrolytes, kidney functions, liver enzymes, B12, vitamin D, and thyroid levels were all normal and stable. - Lipids (from September): LDL cholesterol was 117. Physical Exam General: Cooperative, healthy appearing, comfortable, no acute distress, morbid obesity Orientation: Patient oriented x3 Head: Normal to inspection Ears: Within normal limit visually Nose: Normal external nose present Face and sinus: Normal facial exam Eyes: Appearance normal, extraocular movement intact pupils reactive Neck: Normal visual inspection and supple Respiratory: Normal respiratory effort and able to speak in complete sentences. Clear to auscultation, no stridor Cardiovascular: S1 and S2 RRR GI: Normal to inspection. Soft to palpation and nontender breast exam declined Skin: Turgor normal, no acute findings Neuro: Patient oriented x3, motor sensory intact, balance intact, tendom failed Extremities: Normal to inspection . Coding Level of Care Code Est Pt Level 3 (13871) Est Pt Prev Care 40-64y(63623) Diagnoses Encounter for general adult medical examination with abnormal findings Z00.01 Hypertension, essential I10 Anxiety, generalized F41.1 Impaired fasting blood sugar R73.01 Morbid obesity E66.01 Vitamin D deficiency E55.9 Assessment & Plan Assessment & Plan (1) Encounter for general adult medical examination with abnormal findings: Code(s): Z00.01 - Encounter for general adult medical examination with abnormal findings Category: Medical (2) Hypertension, essential: Code(s): I10 - Essential (primary) hypertension Category: Medical (3) Anxiety, generalized: Code(s): F41.1 - Generalized anxiety disorder Category: Medical (4) Impaired fasting blood sugar: Code(s): R73.01 - Impaired fasting glucose Category: Medical (5) Morbid obesity: Code(s): E66.01 - Morbid (severe) obesity due to excess calories Category: Medical (6) Vitamin D deficiency: Code(s): E55.9 - Vitamin D deficiency, unspecified Category: Medical Plan Patient Instructions - A refill will be provided for your vitamin D medication. - Keep your appointment for your mammogram on January 16. - Since you feel you are able to take care of yourself now, you do not need to renew your Chief Optometry Service (AUTO SPECIALTY SERVICES MANAGER) services. - You can continue your laundry service if you wish. - Please schedule a follow-up visit in about four months, around May. - You should have your next physical exam in one year. Medications: Refilled cholecalciferol (vitamin D3) (Vitamin D3) 25 mcg PO DAILY 90 caps 0RF
== END 2025-01-09 11:58 | disposition home or self-care (01) ==
LOC: HO.HMCC 11:32
PROVIDERS: PCP Internal Medicine; Visit Provider Internal Medicine
DX: Z00.01 Encounter for general adult medical examination with abnormal findings (principal); I10 Essential (primary) hypertension; E66.01 Morbid (severe) obesity due to excess calories; Z68.42 Body mass index [BMI] 45.0-49.9, adult; F41.1 Generalized anxiety disorder; R73.01 Impaired fasting glucose; E55.9 Vitamin D deficiency, unspecified

== ENCOUNTER → 2025-01-09 11:31 | Outpatient (BNVA) | payer OTHER, SELFPAY | PROVIDERS: PCP Internal Medicine; Visit Provider Internal Medicine | DX: Z00.01 Encounter for general adult medical examination with abnormal findings (principal); I10 Essential (primary) hypertension; E78.5 Hyperlipidemia, unspecified; F41.9 Anxiety disorder, unspecified; F41.1 Generalized anxiety disorder; R73.01 Impaired fasting glucose; E66.01 Morbid (severe) obesity due to excess calories; E55.9 Vitamin D deficiency, unspecified; Z68.42 Body mass index [BMI] 45.0-49.9, adult | CPT/HCPCS: 99396 ==